=== PATIENT | female | born 1990 | race Caucasian/White ===

== ENCOUNTER 2024-07-18 18:56 | Emergency (ER) | payer OTHER, SELFPAY ==
[2024-07-18 19:02] VITALS: BP 113/58; PULSE 98; RESP 20; TEMP 37.2; O2SAT 100
--- NOTE | 2024-07-18 19:16 | ED.URI ---
HPI - URI/Sore Throat General Chief Complaint: Upper Respiratory Infection Stated Complaint: Throat/aches/chills/congestion Time Seen by Provider: 07/18/24 19:10 Source: patient, RN notes reviewed and old records reviewed Mode of arrival: ambulatory Limitations: no limitations History of Present Illness HPI Narrative: 33 year old female who presents to [facility] care with complaints of cough, sore throat, congestion with fevers running around 100F for the past 3 days with some post nasal drainage.. Patient reports that she has been taking Sudafed, DayQuil, NyQuil, and Ibuprofen for her symptoms.Patient reports that her throat is painful to swallow, denies any headaches or body aches. 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 MD elicited complaint: cough and sore throat Onset (ago): day(s) (3) Consistency: progressively worsening Pain scale (0-10): 6 Able to tolerate fluids by mouth: Yes Exacerbating factors: swallowing Treatments prior to arrival: ibuprofen and other (Sudafed, DayQuil and NyQuil) Related Data Home Medications Medication Instructions Recorded Confirmed levothyroxine 100 mcg tablet 100 mcg PO DAILY 07/18/24 07/18/24 (Synthroid) Allergies Allergy/AdvReac Type Severity Reaction Status Date / Time No Known Allergies Allergy Verified 07/18/24 19:13 Review of Systems Review of Systems: CONSTITUTIONAL: Reports malaise, chills, sweats, or fever. EYES: Denies visual changes, redness, or discharge. ENT: Reports rhinorrhea, congestion, sinus pain, no otalgia and positive for sore throat. CARDIOVASCULAR: Denies chest pain, palpitations, or edema. RESPIRATORY: Reports cough.? Denies dyspnea. GASTROINTESTINAL: Denies abdominal pain, nausea, vomiting, diarrhea SKIN: Denies rash or itching. MUSCULOSKELETAL: Denies myalgia. NEUROLOGIC: Denies headache. All systems reviewed & are unremarkable except as noted in HPI and below PMFSH Past Medical History Medical History (Updated 07/19/24 @ 22:33 by Tatyana Patterson NP) Hypothyroidism Social History Social History (Updated 07/19/24 @ 22:28 by Tatyana Patterson NP) Smoking status: Never smoker Alcohol intake: current Alcohol use details: social Substance use type: does not use Living arrangements: with family Gender identity (if verbalized by the patient): Female Comments At time of signature, agree with nursing past medical, surgical, social and family history. There is no relevant family history pertinent to the presenting complaint Exam Narrative: GENERAL: Well-appearing, well-nourished, and in no acute distress. HEAD: Normocephalic EYES: PERRLA, conjunctivae clear ENT: Nares clear, turbinates edematous and erythematous, clear discharge. Mucous membranes moist. TM pearly garcia with dull light reflex bilaterally; no tragal tenderness. Oropharynx erythematous without lesions. Tonsils red not enlarged and without exudate, no drooling, no hoarseness, no trismus, uvula midline.post nasal drainage noted NECK: Supple. No lymphadenopathy CHEST: Clear to auscultation, breath sounds equal. No wheezing, rhonchi, rales, or stridor. No respiratory distress, speaks in full sentences. cough noted SAO2 100% on room air HEART: Regular rate and rhythm. No murmur heard. SKIN: Warm, dry, no rash. NEURO: Alert and oriented x3. PSYCH: Normal mood and affect Course Course Emergency Course: Patient is aware of diagnosis, understands and agrees to treatment plan.? Anticipatory guidance given.? Patient agrees to follow-up as directed and is aware of reasons to seek care at the emergency department. Portions of this record may have been created with voice recognition software Level of Care: Express Care Visit Vital Signs Vital signs: Vital Signs Temperature 37.2 C 07/18/24 19:02 Pulse Rate 98 07/18/24 19:02 Respiratory Rate 20 07/18/24 19:02 Blood Pressure 113/58
[2024-07-18 19:22] LABS: EDSTREPNEGPOS1 Negative (Negative)
== END 2024-07-18 19:35 | disposition home or self-care (01) ==
PROVIDERS: Emergency Provider Registered Nurse; PCP Family Medicine
DX: R05.1 Acute cough (principal); J02.9 Acute pharyngitis, unspecified; E03.9 Hypothyroidism, unspecified
CPT/HCPCS: 87081; 87880; 99203; G0463

== ENCOUNTER 2024-10-02 13:46 | Emergency (ER) | payer OTHER, SELFPAY ==
[2024-10-02 14:15] VITALS: BP 122/50; PULSE 71; RESP 20; TEMP 37.1; O2SAT 98
--- NOTE | 2024-10-02 14:39 | ED_ITS ---
HPI - URI/Sore Throat General Chief Complaint: Upper Respiratory Infection Stated Complaint: cough, breathing prob History of Present Illness HPI Narrative: patient is a 33-year-old female, presents to [facility] with 8 day history of URI symptoms, starting with nasal congestion and sore throat a symptom onset, now since resolved, she has a productive cough over the past 3 days has felt feverish. She denies known sick contacts her COVID-19 exposures. She is taking jyxj-xhc-oruxhnp medications and also using an inhaler which was initially providing her relief but is no longer working well. She denies associated chest pain, she has no orthopnea, calf pain or swelling. She denies any additional associated symptoms or modifying factors. She is not . Related Data Home Medications ?Medication ?Instructions ?Recorded ?Confirmed ?Last Taken ?Type levothyroxine 100 mcg tablet 100 mcg PO DAILY 07/18/24 07/18/24 Unknown History (Synthroid) Allergies Allergy/AdvReac Type Severity Reaction Status Date / Time No Known Allergies Allergy Verified 07/18/24 19:13 Review of Systems Constitutional: Comments: Refer HPI ENT: Comments: refer to HPI Respiratory: Comments: [facility] Past Medical History Medical History (Updated 10/02/24 @ 14:43 by NAVDEEP Betancourt) Hypothyroidism Social History Social History (Updated 07/19/24 @ 22:28 by Tatyana Patterson NP) Smoking status: Never smoker Alcohol intake: current Alcohol use details: social Substance use type: does not use Living arrangements: with family Gender identity (if verbalized by the patient): Female Exam Const: General: healthy appearing and no acute distress Nutritional Appearance: well nourished Orientation/consciousness: patient oriented x3 Limitations: no limitations HENMT: Head: normal to inspection Ears: external ears normal and TM abnormal ( serous effusion bilaterally) Face/Nose/Sinus: Normal external nose present Face and sinus: normal facial exam Mouth: Yes Normal oral and palatal mucosa present Teeth and gingiva: dentition normal Throat: posterior oropharynx normal and uvula midline Eyes: Conjunctivae: conjunctivae normal Pupils: Equal, round and reactive pupils present EOM: EOMs intact bilaterally Neck: Neck: normal visual inspection, no lymphadenopathy and no meningeal signs Chest: Chest palpation & inspection: normal inspection of the chest Resp: Effort & Inspection: normal respiratory effort Auscultation: diminished lung sounds bilateral in the lower lung morrow Other: forced expiratory wheezing is noted during cough while auscultating Cardio: Rate: regular rate Rhythm: regular rhythm Back/Spine/Pelvis: Back: no CVA tenderness Skin: General skin exam: normal color Rashes: no rashes Wounds: no wounds Neuro: General: patient oriented x3, moves all extremities, no meningeal signs, no focal motor deficits and CN's II-XI intact bilaterally Cranial nerves: Yes Nystagmus not present Speech: normal speech Gait exam (Neuro): Normal gait present Extrem: General: normal to inspection and no clubbing, cyanosis or edema Course Course Emergency Course: plan to treat empirically for lower lung infection she has a days post symptom onset and not as a productive cough with subjective fever. Patient is advised a plan to defer imaging per CDC recommendations as her oxygen saturation is normal. Patient will complete oral steroids and Zithromax, follow up with her PCP in 3 days if symptoms not improving. She has albuterol at home for use Level of Care: [facility] Care Visit ([id number]) Vital Signs Vital signs: Vital Signs Temperature 37.1 C 10/02/24 14:15 Pulse Rate 71 10/02/24 14:15 Respiratory Rate 20 10/02/24 14:15 Blood Pressure 122/50 L 10/02/24 14:15 Pulse Oximetry 98 10/02/24 14:15 Oxygen Delivery Room Air 10/02/24 14:15 Temperature 37.1 C 10/02/24 14:15 Pulse Rate 71 10/02/24 14:15 Respiratory Rate 20 10/02/24 14:15 Blood Pressure 122/50 L 10/02/24 14:15 Pulse Oximetry 98 10/02/24 14:15 Oxygen Delivery Room Air 10/02/24 14:15 MDM - URI/Sore Throat MDM Narrative Medical decision making narrative: prednisone and Zithromax Differential Diagnosis Differential diagnosis: Likely upper respiratory infection, otitis media, sinusitis, viral infection, bronchitis and other ( pneumonia) Discharge Plan Discharge Clinical Impression: Bronchitis Patient Disposition: Home, Self-Care Condition: Stable Instructions: Antibiotic Form, Community Acquired Pneumonia (ED) Patient Language: Venezuelan Prescriptions: New azithromycin [Zithromax] 500 mg tablet 500 mg PO DAILY 7 Days Qty: 7 0RF prednisone 20 mg tablet 40 mg PO DAILY 5 Days Qty: 10 0RF No Action levothyroxine [Synthroid] 100 mcg tablet 100 mcg PO DAILY amoxicillin 875 mg tablet 875 mg PO Q12H Qty: 20 0RF prednisone 20 mg tablet 20 mg PO BID Qty: 10 0RF Follow-up/Referrals: Xi,Roosevelt Ortiz MD [Primary Care Provider] - Time of Disposition: 14:44
--- OUTSIDE RECORDS SUMMARY | 2024-10-09 16:33 | XMS_ITS | Encounter Summary ---
Author Organization [facility] Care Team Providers Care Eyelet Operator Name Role Phone Roosevelt Layne MD Primary Care Provider [phone] Encounter Details Date Type Department Care Team (Latest Contact Info) Description 07/22/2024 Travel Social History Tobacco Use Types Packs/Day Years Used Date Smoking Tobacco: Never Smokeless Tobacco: Never Alcohol Use Standard Drinks/Week Comments No 0 (1 standard drink = 0.6 oz pur e alcohol) PHQ-2 Answer Date Recorded Total Score - Questions 1-9 0 01/05 Sexually Active Control Partners Comments Never Comments No Sex and Gender Information Value Date Recorded Sex Assigned at Not on file Legal Sex Female 11:43 PM CDT Gender Identity Not on file Sexual Orientation Not on file documented as of this encounter Plan of Treatment Upcoming Encounters Date Type Department Care Team (Late st Contact Info) Description 10/31/2024 4:00 PM HOT PACKER Office Visit [facility] - Family Medicine [facility] [address] [place] [id number] Pelon Tanner APRN, [employer] ARTILL[employer] CANNONEER [address] [address] documented as of this encounter Visit Diagnoses Not on filedocumented in this encounter Additional Health Concerns Assessment Noted Time PHQ-9 Depression Total Score: 0 02/02/20 20 11:19 AM CDT documented as of this encounter Care Teams Eyelet Operator Relationship Specialty Start Date End Date Roosevelt Layne MD [address] [address] PCP - General Family Medicine 09/03/15 documented as of this encounter
--- OUTSIDE RECORDS SUMMARY | 2024-10-09 16:33 | XMS_ITS | Encounter Summary ---
Author Organization [facility] Health Address [address] [place] [address] Care Team Providers Care Flower Grower Name Role Phone Roosevelt Layne MD Primary Care Provider Reason for Visit * Reason Comments Refill Request Encounter Details Date Type Department Care Team (Late st Contact Info) Description 03/26/2020 Refill [facility] Endocrinology, Diabetes and Metabolism [address] [place], [place] [id number] Shayne Hua MD [address] [place] [address] Refill Request Social History Tobacco Use Types Packs/Day Years Used Date Smoking Tobacco: Never Smokeless Tobacco: Never Alcohol Use Standard Drinks/Week Comments Not Currently 0 (1 standard drink = 0.6 oz pur e alcohol) Sex and Gender Information Value Date Recorded Sex Assigned at Not on file Gender Identity Not on file Sexual Orientation Not on file documented as of this encounter Miscellaneous Notes * Telephone Encounter - Dionna Saucedo RN - 03/26/2020 1:28 PM CDT Refill Request Marci Cote MATEUSZ: 10/28/19 NOV scheduled: 04/27/20 LRF: 03/22/19 Qty Disp: 30 # of refills: 11 Allergies: Allergies Allergen Reactions ??? Keflex [Cephalexin] Other GI upset GI upset ??? Sumatriptan Other Numbness on the left side. Numbness on the left side. Numbness on the left side. Numbness on the left side. Pended Medication Order: Requested Prescriptions Pending Prescriptions Disp Refills ??? EUTHYROX 100 MCG tablet [Pharmacy Med Name: Euthyrox 100 MCG Oral Tablet] 90 tablet 3 Sig: Take 1 tablet by mouth once daily documented in this encounter Plan of Treatment Not on file documented as of this encounter Visit Diagnoses Not on filedocumented in this encounter Care Teams Flower Grower Relationship Specialty Start Date End Date Roosevelt Layne MD PCP - General Family Medicine 08/17/17 documented as of this encounter
--- OUTSIDE RECORDS SUMMARY | 2024-10-09 16:33 | XMS_ITS | Encounter Summary ---
Author Organization [facility] Address [address] [place] [address] Phone Care Team Providers Care Fruit Worker Name Role Phone Roosevelt Layne MD Primary Care Provider [phone] Encounter Details Date Type Department Care Team (Late st Contact Info) Description 03/14/2024 Telephone [facility] - Family Medicine [facility] [address] [place] [address] Roosevelt Layne MD [address] [address] Social History Tobacco Use Types Packs/Day Years [...] encounter Miscellaneous Notes * Telephone Encounter - Kate Arrieta MA - 03/15/2024 8:51 AM CDT Lm for Marci to contact the office. * Telephone Encounter - Roosevelt Layne MD - 03/14/2024 3:49 PM CDT Schedule her for follow-up visit with me in 3-4 months. Thanks! documented in this encounter Plan of Treatment Upcoming Encounters Date Type Department Care Team (Late st Contact Info) Description 10/31/2024 4:00 PM OUTPATIENT ADMITTING CLERK Office Visit [facility] - Family Medicine [facility] [address] [place] [address] Pelon Tanner APRN, KILN FEEDER [address] [address] documented as of this encounter Visit Diagnoses Not on filedocumented in this encounter Additional Health Concerns Assessment Noted Time PHQ-9 Depression Total Score: 0 02/02/20 20 11:19 AM CDT documented as of this encounter Care Teams Fruit Worker Relationship Specialty Start Date End Date Roosevelt Layne MD [address] [address] PCP - General Family Medicine 09/03/15 documented as of this encounter
--- OUTSIDE RECORDS SUMMARY | 2024-10-09 16:33 | XMS_ITS | Encounter Summary ---
Author Organization [facility] Address [address] [place] [address] Care Team Providers Care Stencil Inspector Name Role Phone Roosevelt Layne MD Primary Care Provider [phone] Reason for Visit * Reason Comments Thyroid Problem Encounter Details Date Type Department Care Team (Late st Contact Info) Description 10/28/2019 1:40 PM RANGE EXAMINER Office Visit [facility] Endocrinology, Diabetes and Metabolism [address] [place], [place] [id number] Shayne Hua MD [address] [place] [address] Hypothyroidism, unspecified type (Primary Dx) Social History Tobacco Use Types Packs/Day Years Used Date Smoking Tobacco: Never Smokeless Tobacco: Never Alcohol Use Standard Drinks/Week Comments Not Currently 0 (1 standard drink = 0.6 oz pur e alcohol) Sex and Gender Information Value Date Recorded Sex Assigned at Not on file Gender Identity Not on file Sexual Orientation Not on file documented as of this encounter Last Filed Vital Signs Vital Sign Reading Time Taken Comments Blood Pressure 116/66 10/28/2019 1:35 PM RANGE EXAMINER Pulse 97 10/28/2019 1:35 PM RANGE EXAMINER Temperature 36.7 ??C (98.1 ??F) 10/28/2019 1 :35 PM RANGE EXAMINER Respiratory Rate 18 10/28/2019 1:35 PM RANGE EXAMINER Oxygen Saturation 97% 10/28/2019 1:3 5 PM RANGE EXAMINER on room air Inhaled Oxygen Concentration - - Weight 96.8 kg (213 lb 6.4 oz) 10/28/19 20 1:35 PM RANGE EXAMINER Height - - Body Mass Index 33.93 11/23/2018 1:43 PM RANGE EXAMINER documented in this encounter Progress Notes * Shayne Hua MD - 10/28/2019 2:03 PM CST Subjective: Claribel Cote is a 29 y.o. female who presents for f/u of hypothroidism. Diagnosed in 2007 because of fatigue and increased sleep. Levothyroxine was increased to 100 mcg daily in March 2019 because TSH was 4. Asymptomatic at this time. Feels well Has difficulty losing weight. Saw manager helpdesk in 11/2018. H/o Migraines. They have not bothered her much. In the past, her headaches worsened after thyroid dose change. Usually gets migraines around menses. Migraines have bothered her all her life, including childhood. She has seen neurology and was on preventive medications in past. H/o keloids. Better with intralesional steroids Past Medical History: Diagnosis Date ??? Hypothyroidism Past Surgical History: Procedure Laterality Date ??? Section Family History Problem Relation Name Age of Onset ??? Cancer - Breast Mother Current Outpatient Medications Medication Sig Dispense Refill ??? wltx-bmhl-gzfrqohlnj-codeine (FIORICET WITH CODEINE) [id number] MG capsule Take 1 capsule by mouth every 4 hours as needed ??? levothyroxine (SYNTHROID) 100 MCG tablet Take 1 tablet by mouth once daily 30 tablet 11 No current facility-administered medications for this visit. Allergies Allergen Reactions ??? Keflex [Cephalexin] Other GI upset GI upset ??? Sumatriptan Other Numbness on the left side. Numbness on the left side. Numbness on the left side. Numbness on the left side. Social History Socioeconomic History ??? Marital status: Single Spouse name: Not on file ??? Number of children: Not on file ??? Years of education: Not on file ??? Highest education level: Not on file Occupational History ??? Not on file Social Needs ??? Financial resource strain: Not on file ??? Food insecurity: Worry: Not on file Inability: Not on file ??? Transportation needs: Medical: Not on file Non-medical: Not on file Tobacco Use ??? Smoking status: Never Smoker ??? Smokeless tobacco: Never Used Substance and Sexual Activity ??? Alcohol use: Not Currently ??? Drug use: Never ??? Sexual activity: Not on file Lifestyle ??? Physical activity: Days per week: Not on file Minutes per session: Not on file ??? Stress: Not on file Relationships ??? Social connections: Talks on phone: Not on file Gets together: Not on file Attends gnosticism service: Not on file Active member of club or organization: Not on file Attends meetings of clubs or organizations: Not on file Relationship status: Not on file ??? Intimate partner violence: Fear of current or ex partner: Not on file Emotionally abused: Not on file Physically abused: Not on file Forced sexual activity: Not on file Other Topics Concern ??? Not on file Social History Narrative ??? Not on file Review of Systems No palpitations Objective: BP 116/66 (BP SITE: RIGHT ARM, BP POSITION: SITTING, BP CUFF SIZE: 11) Pulse 97 Temp 98.1 ??F (36.7??C) (Oral) Resp 18 Wt 213 lb 6.4 oz (96.8 kg) SpO2 97% BMI 33.93 kg/m2 General: alert, cooperative, no distress Lung: clear to auscultation bilaterally Heart: regular rate and rhythm, S1, S2 normal, no murmur, click, rub or gallop Extremities: No tremors Skin: keloids Lab Review Results for CLARIBEL COTE ( ) as of 10/28/2019 13:58 Ref. Range 09/10/2018 14:11 03/18/2019 14:54 TSH Latest Units: mIU/L 2.070 4.08 T4 Free Latest Ref Range: 0.8 - 1.8 ng/dL 1.21 1.2 Assessment: Hypothyroidism. controlled Plan: Continue levothyroxine 100 mcg daily. Recheck TFTs now. RTC 7 mths with TFTs E EXAMINER documented in this encounter Plan of Treatment Scheduled Orders Name Type Priority Associated Diagnoses Orde r Schedule TSH+FREE T4 PANEL Lab Routine Hypothyroidism, unspecified type Expected: 04/27/2020, Expires: 11/28/2020 documented as of this encounter Procedures Procedure Name Priority Date/Time Associated Diagnosis Comments TSH+FREE T4 PANEL Routine 10/28/2019 2:2 1 PM RANGE EXAMINER Hypothyroidism, unspecified type documented in this encounter Results * TSH+FREE T4 PANEL (10/28/2019 2:21 PM RANGE EXAMINER) TSH 1.23 mIU/L [facility] Comment: ?Reference Range ?> or = 20 Years ??0.40-4.50 ? Ranges ?First trimester ?0.26-2.66 ?Second trimester ?? 0.55-2.73 ?Third trimester ?0.43-2.91 T4 Free 1.5 0.8 - 1.8 ng/dL [facility] Comment: Test Performed at: [facility] [address] ??[id number] MIKAYLA VILLA DO,MPH Blood BLOOD SPECIMEN / Unknown 10/28/2019 2:21 PM RANGE EXAMINER 10/28/2019 2:21 PM RANGE EXAMINER Shayne Hua MD LAB - CHEMISTRY [address] [facility] [id number] [place] [address] documented in this encounter Visit Diagnoses Diagnosis Hypothyroidism, unspecified type- Primary documented in this encounter Care Teams Stencil Inspector Relationship Specialty Start Date End Date Roosevelt Layne MD PCP - General Family Medicine 08/17/17 documented as of this encounter
--- OUTSIDE RECORDS SUMMARY | 2024-10-09 16:33 | XMS_ITS | Encounter Summary ---
Author Organization [facility] Address [address] [place] [address] Care Team Providers Care Farmworkers Name Role Phone Roosevelt Layne MD Primary Care Provider [phone] Reason for Visit * Reason Comments Congestion Encounter Details Date Type Department Care Team (Late st Contact Info) Description 08/07/2018 4:00 PM CDT Office Visit [facility] [address] [address] Provider, Maynor Isaac Pike Upper respiratory tract infection, unspecified type (Primary Dx) Social History Tobacco Use Types Packs/Day Years Used Date Smoking Tobacco: Never Smokeless Tobacco: Never Sex and Gender Information Value Date Recorded Sex Assigned at Not on file Gender Identity Not on file Sexual Orientation Not on file documented as of this encounter Last Filed Vital Signs Vital Sign Reading Time Taken Comments Blood Pressure 110/62 08/07/2018 3:53 PM CDT Pulse 87 08/07/2018 3:53 PM CDT Temperature 36.9 ??C (98.5 ??F) 08/07/2018 3:53 PM CD T Respiratory Rate 20 08/07/2018 3:53 PM CDT Oxygen Saturation 98% 08/07/2018 3:53 PM CDT Inhaled Oxygen Concentration - - Weight 90.7 kg (200 lb) 08/07/2018 3:53 PM CDT Height 175.3 cm (5' 9 ) 08/07/2018 3:53 PM CDT Body Mass Index 29.53 08/07/2018 3:53 PM CDT documented in this encounter Patient Instructions * Patient Instructions* Hannah Sosa APRN-TANK BOTTOM ASSEMBLER - 08/07/2018 4:21 PM CDT Images from the original note were not included. Upper Respiratory Infection HEAD PUMPER: An upper respiratory infection is also called a common cold. It can affect your nose, throat, ears,and sinuses. Common signs and symptoms include the following: Cold symptoms are usually worst for the first 3 to5 days. You may have any of the following: ?? Runny or stuffy nose ?? Sneezing and coughing ?? Sore throat or hoarseness ?? Red, watery, and sore eyes ?? Fatigue ?? Chills and fever ?? Headache, body aches, or sore muscles Seek care immediately if: ?? You have chest pain or trouble breathing. Contact your healthcare provider if: ?? You have a fever over 102??F (39??C). ?? Your sore throat gets worse or you see white or yellow spots in your throat. ?? Your symptoms get worse after 3 to 5 days or your cold is not better in 14 days. ?? You have a rash anywhere on your skin. ?? You have large, tender lumps in your neck. ?? You have thick, green or yellow drainage from your nose. ?? You cough up thick yellow, green, or bloody mucus. ?? You have vomiting for more than 24 hours and cannot keep fluids down. ?? You have a bad earache. ?? You have questions or concerns about your condition or care. Treatment for a cold: There is no cure for the common cold. Colds are caused by viruses and do not get better with antibiotics. Most people get better in 7 to 14 days. You may continue to cough for 2to 3 weeks. The following may help decrease your symptoms: ?? Decongestants help reduce nasal congestion and help you breathe more easily. If you take decongestant pills, they may make you feel restless or not able to sleep. Do not use decongestant sprays for more than a few days. ?? Cough suppressants help reduce coughing. Ask your healthcare provider which type of cough medicine is best for you. ?? NSAIDs , such as ibuprofen, help decrease swelling, pain, and fever. NSAIDs can cause stomach bleeding or kidney problems in certain people. If you take blood thinner medicine, always ask your healthcare provider if NSAIDs are safe for you. Always read the medicine label and follow directions. ?? Acetaminophen decreases pain and fever. It is available without a doctor's order. Ask how much to take and how often to take it. Follow directions. Read the labels of all other medicines you are using to see if they also contain acetaminophen, or ask your doctor or pharmacist. Acetaminophen can cause liver damage if not taken correctly. Do not use more than 4 grams (4,000 milligrams) total of acetaminophen in one day. Manage your cold: ?? Rest as much as possible. Slowly start to do more each day. ?? Drink more liquids as directed. Liquids will help thin and loosen mucus so you can cough it up. Liquids will also help prevent dehydration. Liquids that help prevent dehydration include water, fruit juice, and broth. Do not drink liquids that contain caffeine. Caffeine can increase your risk fordehydration. Ask your healthcare provider how much liquid to drink each day. ?? Soothe a sore throat. Gargle with warm salt water. This helps your sore throat feel better. Makesalt water by dissolving ?? teaspoon salt in 1 cup warm water. You may also suck on hard candy or throat lozenges. You may use a sore throat spray. ?? Use a humidifier or vaporizer. Use a cool mist humidifier or a vaporizer to increase air moisture in your home. This may make it easier for you to breathe and help decrease your cough. ?? Use saline nasal drops as directed. These help relieve congestion. ?? Apply petroleum-based jelly around the outside of your nostrils. This can decrease irritation from blowing your nose. ?? Do not smoke. Nicotine and other chemicals in cigarettes and cigars can make your symptoms worse. They can also cause infections such as bronchitis or pneumonia. Ask your healthcare provider for information if you currently smoke and need help to quit. E-cigarettes or smokeless tobacco still contain nicotine. Talk to your healthcare provider before you use these products. Prevent spreading your cold to others: ?? Try to stay away from other people during the first 2 to 3 days of your cold when it is more easily spread. ?? Do not share food or drinks. ?? Do not share hand towels with household members. ?? Wash your hands often, especially after you blow your nose. Turn away from other people and cover your mouth and nose with a tissue when you sneeze or cough. Follow up with your healthcare provider as directed: Write down your questions so you remember to ask them during your visits. ?? Copyright [employer] 2018 Information is for End User's use only and may not be sold, redistributed or otherwise used for commercial purposes. All illustrations and images included in CareNotes?? are the copyrighted property of [employer] or [employer] The above information is an physician's aide only. It is not intended as medical advice for individual conditions or treatments. Talk to your doctor, nurse or pharmacist before following any medical regimen to see if it is safe and effective for you. documented in this encounter Progress Notes * Hannah Sosa APRN-CNP - 08/07/2018 4:16 PM CDT Subjective: Claribel Cote is a 27 y.o. female who presents for evaluation: Chief Complaint Patient presents with ??? Congestion Primary Care Physician is Roosevelt Layne MD. Symptoms include Sore throat, post nasal drainage, off and on hoarseness, cough, painful to swallow, dry and itchy throat. 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 No recent travel. Onset of symptoms was 5 days ago, gradually worsening since that time. No fever, body aches, chills, or ear pain. She is drinking moderate amounts of fluids. Evaluation to date: none. Treatment to date: zyrtec Allergies Allergen Reactions ??? Keflex [Cephalexin] GI upset Outpatient Prescriptions Marked as Taking for the 08/07/18 encounter (Office Visit) with Provider, Maynor Bynumwood Medication Sig ??? benzonatate (TESSALON) 200 MG capsule Take 1 capsule by mouth 3 times daily as needed for Cough ??? levothyroxine (SYNTHROID) 50 MCG tablet Take 75 mcg by mouth daily before breakfast Past Medical History: Diagnosis Date ??? Hypothyroidism Social History Social History ??? Marital status: Single Spouse name: N/A ??? Number of children: N/A ??? Years of education: N/A Occupational History ??? Not on file. Social History Main Topics ??? Smoking status: Never Smoker ??? Smokeless tobacco: Never Used ??? Alcohol use Not on file ??? Drug use: Not on file ??? Sexual activity: Not on file Other Topics Concern ??? Not on file Social History Narrative Medications reviewed. Review of Systems Pertinent items are noted in HPI Constitutional: Negative Eyes: Negative Ears, nose, mouth, and throat: Positive for sore throat, voice hoarseness, post nasal drainage, dryand scratchy throat Respiratory: Positive for acute cough Cardiovascular: Negative Gastrointestinal: Negative Hematologic/lymphatic: Negative Musculoskeletal:Negative Neurological: Negative Objective: BP 110/62 (BP SITE: LEFT ARM, BP POSITION: SITTING, BP CUFF SIZE: 11) Pulse 87 Temp 98.5 ??F (36.9 ??C) (Oral) Resp 20 Ht 1.753 m (5' 9 ) Wt 90.7 kg (200 lb) SpO2 98% BMI 29.53 kg/m2 Skin: Physical Exam Exam General appearance: alert, cooperative, no distress, oriented to person, place, and time, wellappearing Head: normocephalic, without trauma Eyes: sclera and conjunctiva clear, EOMI and PERRLA, lids normal Ears: canals clear, tympanic membranes normal, hearing intact to voice Nose: nares open; no septal deviation is noted, nasal mucosa not inflamed, no maxillary, frontal orethmoid tenderness Throat: no mucous membrane abnormalities, lips, mucosa, and tongue normal; teeth and gums normal Neck: range of motion is intact, Nodes: no cervical adenopathy, non tender Lungs: breath sounds normal and symmetric; no rales or wheezes Heart: regular rhythm, normal S1 and S2, without murmurs, gallops or rubs Neurologic: mental status normal; alert and oriented X 3 Assessment: . Encounter Diagnoses Name Primary? Upper respiratory tract infection, unspecified type Yes Plan: Discussed dx and tx of URIs Discussed the importance of avoiding unnecessary abx therapy. Suggested symptomatic OTC remedies. RTC prn. Drink plenty of fluids and get plenty of rest You can take an over the counter decongestant and/or antihistamine daily (per package directions) such as Zyrtec-D You can take Tylenol or ibuprofen as needed for fever or pain (per package directions) If you begin to run a fever or if symptoms worsen, such as difficulty breathing or shortness of breath, seek medial attention as soon as possible. Honey can be used to help with cough. The honey (2.5 to 5 ml [0.5 to 1 teaspoon]) can be given straight or diluted in liquid (eg, tea, juice) Humidifier may be helpful especially at night If symptoms persist greater than 10 days or worsen at any time, follow up with a health care provider, clinic or emergency care Continue to follow up with Roosevelt Layne MD as directed. After Visit Summary reviewed with patient. The patient indicates understanding of these issues and agrees with the plan. Patient discharged to Home .CRAOL Reed 08/07/2018 4:25 PM Orders Placed This Encounter ??? INFLUENZA A+B - POINT OF CARE (AMB) ??? STREP A SCREEN - POINT OF CARE (AMB) STL ??? benzonatate (TESSALON) 200 MG capsule Sig: Take 1 capsule by mouth 3 times daily as needed for Cough Dispense: 30 capsule Refill: 0 Recent Results (from the past 24 hour(s)) INFLUENZA A+B - POINT OF CARE (AMB) Collection Time: 08/07/18 4:13 PM Result Value Ref Range Influenza A Antigen Rapid Negative Negative Influenza B Antigen Rapid Negative Negative Influenza Internal Control present NEGATIVE - POSITIVE Influenza Lot Number [id number] Influenza Expiration Date 11 13 2019 STREP A SCREEN - POINT OF CARE (AMB) STL Collection Time: 08/07/18 4:13 PM Result Value Ref Range Strep A Rapid POCT Negative Negative Strep A Internal Control Present Lot # [id number] Expiration Date 12 04 2019 documented in this encounter Plan of Treatment Not on file documented as of this encounter Procedures Procedure Name Priority Date/Time Associated Diagnosis Comments STREP A SCREEN - POINT OF CARE (AMB) STL Routine 08/07/2018 4:13 PM CDT Upper respiratory tract infection, unspecified type INFLUENZA A+B - POINT OF CARE (AMB) Routine 08/07/2018 4:13 PM CDT Upper respiratory tract infection, unspecified type documented in this encounter Results * STREP A SCREEN - POINT OF CARE (AMB) STL (08/07/2018 4:13 PM CDT) Strep A Rapid POCT Negative Negative Strep A Internal Control Present Lot # [id number] Expiration Date 12 04 2019 Throat ENTIRE THROAT (SURFACE REGION OF NECK) / Unknown 08/07/2018 4:13 PM CDT Hannah Sosa APRN-[facility] - POINT OF CA RE ORDERABLES * INFLUENZA A+B - POINT OF CARE (AMB) (08/07/2018 4:13 PM CDT) Influenza A Antigen Rapid Negative Negative Influenza B Antigen Rapid Negative Negative Influenza Internal Control present NEGATIVE - POSITIVE Influenza Lot Number [id number] Influenza Expiration Date 11 13 2019 Other NASOPHARYNGEAL SWAB / Unknown 08/07/2018 4:13 PM CDT Hannah Sosa APRN-[facility] - POINT OF CA RE ORDERABLES documented in this encounter Visit Diagnoses Diagnosis Upper respiratory tract infection, unspecified type- Primary documented in this encounter Care Teams Farmworkers Relationship Specialty Start Date End Date Roosevelt Layne MD PCP - General Family Medicine 08/17/17 documented as of this encounter
--- OUTSIDE RECORDS SUMMARY | 2024-10-09 16:33 | XMS_ITS | Encounter Summary ---
Author Organization [facility] Address [address] [place] [address] Care Team Providers Care Internal Medicine Specialist Name Role Phone Roosevelt Layne MD Primary Care Provider Reason for Visit * Reason Onset Date Comments Follow-up 12/01/2017 Encounter Details Date Type Department Care Team (Late st Contact Info) Description 12/01/[address] [facility] AT [address] [address] [facility] Follow-up Social History Tobacco Use Types Packs/Day Years Used Date Smoking Tobacco: Never Smokeless Tobacco: Never Sex and Gender Information Value Date Recorded Sex Assigned at Not on file Gender Identity Not on file Sexual Orientation Not on file documented as of this encounter Plan of Treatment Not on file documented as of this encounter Visit Diagnoses Not on filedocumented in this encounter Care Teams Internal Medicine Specialist Relationship Specialty Start Date End Date Roosevelt Layne MD PCP - General Family Medicine 08/17/17 documented as of this encounter
--- OUTSIDE RECORDS SUMMARY | 2024-10-09 16:33 | XMS_ITS | Encounter Summary ---
Author Organization [facility] Address [address] [place] [address] Phone Care Team Providers Care Medical Photographer Name Role Phone Roosevelt Layne MD Primary Care Provider [phone] Encounter Details Date Type Department Care Team (Late st Contact Info) Description 07/26/2024 Telephone [facility] - Family Medicine [facility] [address] [place] [address] Roosevelt Layne MD [address] [address] Social History Tobacco Use Types Packs/Day Years [...] encounter Miscellaneous Notes * Telephone Encounter - Ambar Rutherford CMA - 07/26/2024 3:52 PM CDT Pt scheduled for 07/28/24. * Telephone Encounter - Roosevelt Layne MD - 07/26/2024 9:32 AM CDT Schedule her for telephone visit with me later this week for Urgent Care / ER follow-up. Thanks! documented in this encounter Plan of Treatment Upcoming Encounters Date Type Department Care Team (Late st Contact Info) Description 10/31/2024 4:00 PM TECHNICAL TESTING ENGINEER Office Visit [facility] - [facility] - [place] [address] [place] [address] Pelon Tanner APRN, [facility] [address] [address] documented as of this encounter Visit Diagnoses Not on filedocumented in this encounter Additional Health Concerns Assessment Noted Time PHQ-9 Depression Total Score: 0 02/02/20 20 11:19 AM CDT documented as of this encounter Care Teams Medical Photographer Relationship Specialty Start Date End Date Roosevelt Layne MD [address] [address] PCP - General Family Medicine 09/03/15 documented as of this encounter
--- OUTSIDE RECORDS SUMMARY | 2024-10-09 16:33 | XMS_ITS | Clinical Summary ---
Author Organization [facility] Address [address] [facility] [place] [address] Care Team Providers Care Channel Man Name Role Phone Roosevelt Layne MD Primary Care Provider [phone] Source Comments [facility],non-owned Affiliates and Associated Physician Practices is amultiple site organization consisting of ambulatory clinics and hospital sitesin [place], [place], [place] and [place]. This disclosure is being madepursuant to the Care Everywhere program and may not contain all information available regarding this patient. Last updated 18.[facility] Allergies Active Allergy Reactions Criticality Noted Date Comments Cephalexin Other 08/17/2017 GI upset GI upset Sumatriptan Other 01/07/2016 Numbness on the left side. Numbness on the left side. Numbness on the left side. Numbness on the left side. Medications * Be aware that medications may not be up to date on this document. Alwaysverify current medications with the patient. Medication Sig Dispensed Refills Start Date End Date Status lnjq-nvky-vwbnusjoqs- codeine (FIORICET WITH CODEINE) 50-374-45-30 MG capsule Take 1 capsule by mouth every 4 hours as needed 01/25/2018 Active levothyroxine (EUTHYROX) 100 MCG tablet Take 1 (one) tablet by mouth once daily 90 tablet 3 11/23/2020 Active Active Problems Problem Noted Date Diagnosed Date Hypothyroidism 09/10/2018 B12 deficiency 04/21/2017 Migraine without aura and wi th status migrainosus, not intractable 02/18/2017 Overweight (BMI 25.0-29.9) 02/18/2017 Vitamin D deficiency 11/07/2015 Chronic fatigue 11/02/2015 Migraine 09/03/2015 Immunizations Name Administration Dates Next Due INFLUENZA VACCINE, TRIV. (AF LURIA, FLUZONE TRIVALENT; 6MO+) (IIV3) 08/06/2019 INFLUENZA 07/22/2018 TDAP (7yrs+) 01/21/2008 Family History Medical History Relation Name Comments Cancer - Breast Mother Relation Name Status Comments Mother Social History Tobacco Use Types Packs/Day Years Used Date Smoking Tobacco: Never Smokeless Tobacco: Never Alcohol Use Standard Drinks/Week Comments Not Currently 0 (1 standard drink = 0.6 oz pur e alcohol) Sex and Gender Information Value Date Recorded Sex Assigned at Not on file Gender Identity Not on file Sexual Orientation Not on file Last Filed Vital Signs Vital Sign Reading Time Taken Comments Blood Pressure 116/66 10/28/2019 1:35 PM RECEPTION INTERVIEWER Pulse 97 10/28/2019 1:35 PM RECEPTION INTERVIEWER Temperature 36.7 ??C (98.1 ??F) 10/28/2019 1 :35 PM RECEPTION INTERVIEWER Respiratory Rate 18 10/28/2019 1:35 PM RECEPTION INTERVIEWER Oxygen Saturation 97% 10/28/2019 1:3 5 PM RECEPTION INTERVIEWER on room air Inhaled Oxygen Concentration - - Weight 96.8 kg (213 lb 6.4 oz) 10/28/19 20 1:35 PM RECEPTION INTERVIEWER Height 168.9 cm (5' 6.5 ) 11/23/2018 1: 43 PM RECEPTION INTERVIEWER Body Mass Index 33.93 11/23/2018 1:43 PM RECEPTION INTERVIEWER Plan of Treatment Health Maintenance Due Date Last Done Comments PAP SMEAR 1988 HIV SCREENING 2003 HEPATITIS C SCREENING 10/06/2006 HEPATITIS B VACCINE (1 of 3 - 19+ 3-dose series) 2007 DTAP/TDAP/TD VACCINES (2 - T d or Tdap) 01/20/2018 01/21/2008 DEPRESSION SCREENING 10/05/2023 COVID-19 VACCINE ( - 2023-2 5 season) 2024 INFLUENZA VACCINE (#1) 2024 9, 07/22/2018 ZOSTER VACCINE (1 of 2) 2038 HIB VACCINE Aged Out No longer eligi ble based on patient's age to complete this topic HPV VACCINE Aged Out No longer eligi ble based on patient's age to complete this topic MENINGOCOCCAL VACCINE Aged Out No savanah emily eligible based on patient's age to complete this topic PNEUMOCOCCAL VACCINE Aged Out No long er eligible based on patient's age to complete this topic Care Teams Channel Man Relationship Specialty Start Date End Date Roosevelt Layne MD PCP - General Family Medicine 08/17/17
--- OUTSIDE RECORDS SUMMARY | 2024-10-09 16:33 | XMS_ITS | Encounter Summary ---
Author Organization [facility] Address [address] [place] [address] Phone Care Team Providers Care Information Systems Security Analyst Name Role Phone Roosevelt Layne MD Primary Care Provider [phone] Reason for Visit * Reason Onset Date Comments Medication Refill 12/21/2023 Encounter Details Date Type Department Care Team (Late st Contact Info) Description 12/21/2023 Refill [facility] [address] [place] [address] Roosevelt Layne MD [address] [address] Medication Refill Social History Tobacco Use Types Packs/Day Years [...] encounter Miscellaneous Notes * Telephone Encounter - Mary Alvarado RN - 12/21/2023 12:29 PM CDT :Last ordered by this office 5 years ago. PRN medication requires review from provider Per nursing clinical judgement, provider to review and approve the medication(s) order(s) if appropriate. Requested Prescriptions Pending Prescriptions Disp Refills albuterol (ProAir HFA) 108 (90 Base) MCG/ACT Aerosol Solution 18 g 0 Sig: take 2 Puffs by inhalation every 4 hours as needed for Wheezing or Cough. Short Acting Inhaled Beta-Agonists Protocol Passed - 12/21/2023 9:04 AM Passed - Visit with relevant provider in past 12 months or upcoming 90 days Recent Visits Date Type Provider Dept 09/04/23 Office Visit Pelon Tanner APRN, [facility]ITRI[facility] Showing recent visits within past 365 days and meeting all other requirements Future Appointments No visits were found meeting these conditions. Showing future appointments within next 90 days and meeting all other requirements * Telephone Encounter - Myrna Meadows MA - 12/21/2023 9:02 AM CDT Message left on medication refill voice mail: Patient requesting a refill of Albuterol 108 (90 base) mcg/act aerosol solution documented in this encounter Plan of Treatment Upcoming Encounters Date Type Department Care Team (Late st Contact Info) Description 10/31/2024 4:00 PM KAIAWHINA Office Visit [facility] - Family [facility] [address] [place] [address] Pelon Tanner APRN, DMITRIY [address] [address] documented as of this encounter Visit Diagnoses Not on filedocumented in this encounter Additional Health Concerns Assessment Noted Time PHQ-9 Depression Total Score: 0 02/02/20 20 11:19 AM CDT documented as of this encounter Care Teams Information Systems Security Analyst Relationship Specialty Start Date End Date Roosevelt Layne MD [address] [address] PCP - General Family Medicine 09/03/15 documented as of this encounter
--- OUTSIDE RECORDS SUMMARY | 2024-10-09 16:33 | XMS_ITS | Encounter Summary ---
Author Organization [facility] Address [address] [place] [address] Care Team Providers Care Nutrition Program Instructor Name Role Phone Roosevelt Layne MD Primary Care Provider [phone] Encounter Details Date Type Department Care Team (Late st Contact Info) Description 11/11/2018 Orders Only [facility] [address] [place], [place] [id number] Shayne Hua MD [address] [address] Other specified hypothyroidism Social History Tobacco Use Types Packs/Day Years Used Date Smoking Tobacco: Never Smokeless Tobacco: Never Sex and Gender Information Value Date Recorded Sex Assigned at Not on file Gender Identity Not on file Sexual Orientation Not on file documented as of this encounter Plan of Treatment Not on file documented as of this encounter Visit Diagnoses Diagnosis Other specified hypothyroidism documented in this encounter Care Teams Nutrition Program Instructor Relationship Specialty Start Date End Date Roosevelt Layne MD PCP - General Family Medicine 08/17/17 documented as of this encounter
--- OUTSIDE RECORDS SUMMARY | 2024-10-09 16:33 | XMS_ITS | Referral Summary ---
Author Organization [facility] Address [address] [place] [address] Care Team Providers Care Personal Care Aide Name Role Phone Roosevelt Layne MD Primary Care Provider [phone] Source Comments [facility],non[facility] Affiliates and Associated Physician Practices is amultiple site organization consisting of ambulatory clinics and hospital sitesin [place], [place], [place] and [place]. This disclosure is being madepursuant to the Care Everywhere program and may not contain all information available regarding this patient. Last updated 18.[facility] Allergies Active Allergy Reactions Criticality Noted Date [...] Dispensed Refills Start Date End Date Status liko-qfet-cpwuqzpnyw- codeine (FIORICET WITH CODEINE) [id number] MG capsule Take 1 capsule by mouth [...] (IIV3) 08/06/2019 INFLUENZA 07/22/2018 TDAP (7yrs+) 01/21/2008 Social History Tobacco Use Types Packs/Day Years [...] Comments Blood Pressure 116/66 10/28/2019 1:35 PM MEDICAL OFFICE RECEPTIONIST Pulse 97 10/28/2019 1:35 PM MEDICAL OFFICE RECEPTIONIST Temperature 36.7 ??C (98.1 ??F) 10/28/2019 1 :35 PM MEDICAL OFFICE RECEPTIONIST Respiratory Rate 18 10/28/2019 1:35 PM MEDICAL OFFICE RECEPTIONIST Oxygen Saturation 97% 10/28/2019 1:3 5 PM MEDICAL OFFICE RECEPTIONIST on room air Inhaled Oxygen Concentration - - Weight 96.8 kg (213 lb 6.4 oz) 10/28/19 20 1:35 PM MEDICAL OFFICE RECEPTIONIST Height 168.9 cm (5' 6.5 ) 11/23/2018 1: 43 PM MEDICAL OFFICE RECEPTIONIST Body Mass Index 33.93 11/23/2018 1:43 PM MEDICAL OFFICE RECEPTIONIST Plan of Treatment Not on file Administered Medications Care Teams Personal Care Aide Relationship Specialty Start Date End Date Roosevelt Layne MD PCP - General Family Medicine 08/17/17
--- OUTSIDE RECORDS SUMMARY | 2024-10-09 16:33 | XMS_ITS | Encounter Summary ---
Author Organization [facility] Address [address] [address] Phone Care Team Providers Care Black Belt Name Role Phone Roosevelt Layne MD Primary Care Provider [phone] Reason for Visit * Reason Onset Date Comments Headache 11/24/2023 Encounter Details Date Type Department Care Team (Late st Contact Info) Description 11/24/2023 Nurse Triage [facility] [address] [place] [address] Roosevelt Layne MD [address] [address] Headache Social History Tobacco Use Types Packs/Day Years [...] encounter Miscellaneous Notes * Telephone Encounter - Marycarmen Pastrana RN - 11/24/2023 4:01 PM CST SITUATION: Patient returning call BACKGROUND: Below message from Dr Layne relayed to patient ASSESSMENT: Patient verbalizes understanding of recommendations and states she will go to the EMERGENCY DEPARTMENT to be seen RECOMMENDATION: Denies further needs at this time CARE TECHNICIAN * Telephone Encounter - Marci Vásquez RN - 11/24/2023 3:32 PM PET CARE TECHNICIAN LVM. Please give patient PCP's message when she calls. CARE TECHNICIAN * Telephone Encounter - Roosevelt Layne MD - 11/24/2023 3:23 PM PET CARE TECHNICIAN Tell her to go to the ER today for evaluation. She may need a CT head done. Thanks! CARE TECHNICIAN * Telephone Encounter - Chica Davies RN - 11/24/2023 2:57 PM PET CARE TECHNICIAN There is no recommendations from triage. Do you want patient to go to [facility], ED or telephone visit? CARE TECHNICIAN * Telephone Encounter - Nelly Nuñez RN - 11/24/2023 1:27 PM CST SITUATION (caller perception/concerns): headache BACKGROUND ASSESSMENT: Onset: 2 weeks Symptoms: patient states: has been having headaches for 2 weeks now, on left side behind left [employer]ec[employer] sometimes above eye but radiates to back of head too, bursts of pain , taking tylenol or motrin goes away but then comes back. Harder to sleep at times, if laying on that side it hurts more. H as had migraines , last week did have migraine but this doesn't feel like migraine. No vision changes, sometimes light sensitive , but not all the time. On occasion will feel some words getting jumbled or speech is off , this is not happening now , not dizzy now and speech is clear and no problemcurrently. No weakness or numbness. Pain: Now pain is in moderate , annoying, like being punched once in while in head. Temp (route, time): No fever Treatment with response: Last took yesterday OTC- motrin , none today RECOMMENDATION: Patient wanting appointment. Patient states she can make any appointment work to be seen. Triage information noted in chart. This RN unable to give recommendation /advisement due to Rn doesnt not have [place]. license , --Please call back via phone to patient with a appointment for office. See care advice and disposition for guideline. First positive answer recorded, all responses to prior questions were negative. If symptoms increase, change or if new symptoms develop, call your HCP or call back. Recommendation based on caller information and is not a diagnosis. Verified and reviewed all triage information with caller. Caller verbalized understanding of information given and denies further questions. Teach-back method utilized. Reason for Disposition ? ? Unexplained headache that is present > 24 hours Protocols used: [id number] CARE TECHNICIAN documented in this encounter Plan of Treatment Upcoming Encounters Date Type Department Care Team (Late st Contact Info) Description 10/31/2024 4:00 PM PET CARE TECHNICIAN Office Visit [facility] [address] [place] [address] Pelon Tanner APRN, TELEVISION TUBE INSPECTOR [address] [address] documented as of this encounter Visit Diagnoses Not on filedocumented in this encounter Additional Health Concerns Assessment Noted Time PHQ-9 Depression Total Score: 0 02/02/20 20 11:19 AM CDT documented as of this encounter Care Teams Black Belt Relationship Specialty Start Date End Date Roosevelt Layne MD [address] [address] PCP - General Family Medicine 09/03/15 documented as of this encounter
--- OUTSIDE RECORDS SUMMARY | 2024-10-09 16:33 | XMS_ITS | Encounter Summary ---
Author Organization [facility] Address [address] [place] [address] Phone Care Team Providers Care Shoe Shiner Name Role Phone Roosevelt Layne MD Primary Care Provider [phone] Reason for Visit * Reason Comments Medication Refill Encounter Details Date Type Department Care Team (Late st Contact Info) Description 09/10/2024 Refill [facility] [address] [place] [address] Pelon Tanner APRN, LABORER [employer] [address] [address] Medication Refill Social History Tobacco Use Types [...] Telephone Encounter - Mary Alvarado RN - 09/12/2024 9:01 AM CST Medication failed the protocol, provider to review and approve the medication order if appropriate. Requested Prescriptions Pending Prescriptions Disp Refills Synthroid 100 MCG Tablet [Pharmacy Med Name: Synthroid 100 MCG Oral Tablet] 90 Tablet 0 Sig: Take 1 tablet by mouth once daily Thyroid Hormones Protocol Failed - 09/12/2024 9:01 AM Failed - Normal TSH in past 12 months TSH Date Value Ref Range Status 09/04/2023 2.101 0.300 - 5.000 mIU/L Final Passed - No test in the past 12 months or most recent test was negative Passed - Visit with relevant provider in past 12 months or upcoming 90 days Recent Visits Date Type Provider Dept 07/28/24 Telemedicine Roosevelt Layne MD [facility] Showing recent visits within past 365 days and meeting all other requirements Future Appointments Date Type Provider Dept 10/31/24 Appointment Pelon Tanner APRN, CNP [facility] Showing future appointments within next 90 days and meeting all other requirements Passed - No active on record D CUTTER documented in this encounter Plan of Treatment Upcoming Encounters Date Type Department Care Team (Late st Contact Info) Description 10/31/2024 4:00 PM TREAD CUTTER Office Visit [facility] - Family [facility] [address] [place] [address] Pelon Tanner APRN, DMITRIY [address] [address] documented as of this encounter Visit Diagnoses Diagnosis Hypothyroidism, unspecified type documented in this encounter Additional Health Concerns Assessment Noted Time PHQ-9 Depression Total Score: 0 02/02/20 20 11:19 AM CDT documented as of this encounter Care Teams Shoe Shiner Relationship Specialty Start Date End Date Roosevelt Layne MD #[address] [address] PCP - General Family Medicine 09/03/15 documented as of this encounter
--- OUTSIDE RECORDS SUMMARY | 2024-10-09 16:33 | XMS_ITS | Encounter Summary ---
Author Organization [facility] Address [address] [place] [address] Care Team Providers Care Cut Out And Marking Machine Operator Name Role Phone Roosevelt Layne MD Primary Care Provider Reason for Visit * Reason Comments Cough Wheezing Encounter Details Date Type Department Care Team (Late st Contact Info) Description 11/17/2017 5:20 PM DRILL OPERATOR PNEUMATIC Office Visit [facility] [address] [address] Provider, Maynor Isaac [facility] Acute URI (Primary Dx); Strain of muscle, fascia and tendon of lower back, initial encounter Social History Tobacco Use Types Packs/Day Years Used Date Smoking Tobacco: Never Smokeless Tobacco: Never Sex and Gender Information Value Date Recorded Sex Assigned at Not on file Gender Identity Not on file Sexual Orientation Not on file documented as of this encounter Last Filed Vital Signs Vital Sign Reading Time Taken Comments Blood Pressure 118/74 11/17/2017 5:05 PM DRILL OPERATOR PNEUMATIC Pulse 78 11/17/2017 5:05 PM DRILL OPERATOR PNEUMATIC Temperature 37.3 ??C (99.2 ??F) 11/17/2017 5:05 PM CS T Respiratory Rate 20 11/17/2017 5:05 PM DRILL OPERATOR PNEUMATIC Oxygen Saturation 98% 11/17/2017 5:05 PM DRILL OPERATOR PNEUMATIC Inhaled Oxygen Concentration - - Weight 88.5 kg (195 lb) 11/17/2017 5:05 PM DRILL OPERATOR PNEUMATIC Height 175.3 cm (5' 9 ) 11/17/2017 5:05 PM DRILL OPERATOR PNEUMATIC Body Mass Index 28.8 11/17/2017 5:05 PM DRILL OPERATOR PNEUMATIC documented in this encounter Patient Instructions * Patient Instructions* Marci Lisa APRN-COLLAR RUNNER - 11/17/2017 5:34 PM DRILL OPERATOR PNEUMATIC Images from the original note were not included. Upper Respiratory Infection WHAT YOU NEED TO KNOW: An upper respiratory infection is also called the common cold. It is an infection that can affect your nose, throat, ears, and sinuses. For healthy people, the common cold is usually not serious and does not need special treatment. Cold symptoms are usually worst for the first 3 to 5 days. Most peop le get better in 7 to 14 days. You may continue to cough for 2 to 3 weeks. Colds are caused by viruses and do not get better with antibiotics. DISCHARGE INSTRUCTIONS: Return to the emergency department if: ?? You have chest pain or [...] or concerns about your condition or care. Medicines: You may need any of the following: ?? Decongestants help reduce nasal congestion and help you breathe more easily. If you take decongestant pills, they may make you feel restless or cause problems with your sleep. Do not use decongestant sprays for [...] milligrams) total of acetaminophen in one day. ?? Take your medicine as directed. Contact your healthcare provider if you think your medicine is not helping or if you have side effects. Tell him or her if you are allergic to any medicine. Keep a list of the medicines, vitamins, and herbs you take. Include the amounts, and when and why you take them. Bring the list or the pill bottles to follow-up visits. Carry your medicine list with you in case of an emergency. Follow up with your healthcare provider as directed: Write down your questions so you remember to ask them during your visits. Self-care: ?? Rest as much as possible. Slowly [...] a tissue when you sneeze or cough. ?? 2017 [employer] Information is for End User's use only and may not be sold, redistributed or otherwise used for commercial purposes. All illustrations and images included in CareNotes?? are the copyrighted property of [employer] or [employer]. The above information is an rehab services aide only. It is not intended as medical advice for individual conditions or treatments. Talk to your doctor, nurse or pharmacist before following any medical regimen to see if it is safe and effective for you. L OPERATOR PNEUMATIC documented in this encounter Progress Notes * Marci Lisa APRN-CNP - 11/17/2017 5:23 PM CST Subjective: Claribel Cote is a 27 y.o. female who presents to the clinic for Chief Complaint Patient presents with ??? Cough ??? Wheezing . Her Primary Care Physician is Roosevelt Layne MD. She reports non- productive cough, nasal congestion and chest congestion/wheezing. Reports SOB with exertion. Denies fever, sinus congestion, or headaches. Also reports intermittent pain to right lower back x 1 days. States better when she sits s till. Denies urinary urgency, frequency, burning or pain. Onset of symptoms was 4 days ago, and is She is drinking plenty of fluids. She has been taking Ibuprofen. Daughter was sick last week with arespiratory virus. Past Medical History: Diagnosis Date ??? Hypothyroidism Family History Problem Relation Age of Onset ??? Cancer - Breast Mother Current Outpatient Prescriptions Medication Sig Dispense Refill ??? levothyroxine (SYNTHROID) 50 MCG tablet Take 50 mcg by mouth daily before breakfast No current facility-administered medications for this visit. Allergies Allergen Reactions ??? Keflex [Cephalexin] GI upset Social History Social History ??? Marital status: [...] ??? Not on file Social History Narrative Review of Systems Pertinent items are noted in HPI Constitutional: Negative Eyes: Negative Ears, nose, mouth, and throat: Positive for slight nasal congestion Respiratory: Positive for acute cough, wheezing, chest congestion Musculoskeletal: Positive for right lower back pain Cardiovascular: Negative Neurological: Negative Objective: BP 118/74 Pulse 78 Temp 99.2 ??F (Oral) Resp 20 Ht 1.753 m (5' 9 ) Wt 88.5 kg (195 lb) SpO2 98% BMI28.8 kg/m2 Exam General appearance: alert, cooperative, no distress, oriented to person, place, and time, wellappearing Head: normocephalic, without trauma Eyes: sclera and conjunctiva clear, EOMI and PERRLA, lids normal Ears: canals clear, tympanic membranes normal, hearing intact to voice Nose: nares open; no septal deviation is noted, nasal mucosa not inflamed, no maxillary tenderness Throat: no mucous membrane abnormalities, lips, mucosa, and tongue normal; teeth and gums normal Neck: range of motion is intact, no masses, no cervical adenopathy Lungs: breath sounds normal and symmetric; no rales or wheezes Heart: regular rhythm, normal S1 and S2, without murmurs, gallops or rubs Musculoskeletal: Right lower back under right posterior ribcage tender to mild palpation. No CVA tenderness bilaterally. Neurologic: mental status normal; alert and oriented X 3 Assessment: Encounter Diagnoses Name Primary? Acute URI Yes ??? Strain of muscle, fascia and tendon of lower back, initial encounter Plan: Discussed dx and tx of URIs Discussed the importance of avoiding unnecessary abx therapy. Suggested symptomatic OTC remedies. RTC prn. Offered Tessalon. Pt declined. Rest. Drink plenty of fluids. Use humidified air. Honey is a natural cough suppressant. Follow-up with PCP if symptoms last longer than 7-10 days or sooner for any new or worsening symptoms. Follow-up with PCP for any urinary symptoms or worsening of right lower back pain. No orders of the defined types were placed in this encounter. No results found for this or any previous visit (from the past 24 hour(s)). L OPERATOR PNEUMATIC documented in this encounter Plan of Treatment Not on file documented as of this encounter Visit Diagnoses Diagnosis Acute URI- Primary Acute upper respiratory infections of unspecified site Strain of muscle, fascia and tendon of lower back, initial encounter documented in this encounter Care Teams Cut Out And Marking Machine Operator Relationship Specialty Start Date End Date Roosevelt Layne MD PCP - General Family Medicine 08/17/17 documented as of this encounter
--- OUTSIDE RECORDS SUMMARY | 2024-10-09 16:33 | XMS_ITS | Encounter Summary ---
Author Organization [facility] Address [address] [place] [address] Phone Care Team Providers Care Audio Visual Secretary Name Role Phone Roosevelt Layne MD Primary Care Provider [phone] Reason for Visit * Reason Onset Date Comments Results 09/04/2023 Encounter Details Date Type Department Care Team (Late st Contact Info) Description 09/04/2023 Telephone [facility] [address] [place] [address] Pelon Tanner, COMPUTATIONAL PHYSICIST, RESEARCH AND DEVELOPMENT SPECIALIST #[address] [address] Results Social History Tobacco Use Types Packs/Day Years [...] on file documented as of this encounter Functional Status * Question Answer Date of Assessment Author Little interest or pleasure in doing things Not at all 09/04/2023 10:19 AM Ambar Miguel CMA Feeling down, depressed, or hopeless Not at all 09/04/2023 10:19 AM Ambar Miguel CMA * Over the past 2 weeks, how often have you been bothered by any of the following problems? Question Answer Date of Assessment Author Patient Health Questionnaire -2 Score 0 09/04/2023 10:19 AM Ambar Miguel CMA documented as of this encounter Miscellaneous Notes * Telephone Encounter - Gwendolyn Gold RN - 09/04/2023 1:30 PM GRINDER HAND Spoke with patient to relay note from Pelon. Patient verbalized understanding. Patient questioned if medication was called in. Informed her that Synthroid was called in to the [facility] today. DER HAND * Telephone Encounter - Gwendolyn Gold RN - 09/04/2023 1:29 PM GRINDER HAND ----- Message from Pelon Tanner APRN, DMITRIY sent at 09/04/2023 12:55 PM GRINDER HAND ----- Cholesterol moderately elevated. Other labs look great! DER HAND documented in this encounter Plan of Treatment Upcoming Encounters Date Type Department Care Team (Late st Contact Info) Description 10/31/2024 4:00 PM GRINDER HAND Office Visit [facility] [place] [address] Pelon Tanner APRN, RESEARCH AND DEVELOPMENT SPECIALIST #[address] [address] documented as of this encounter Visit Diagnoses Not on filedocumented in this encounter Additional Health Concerns Assessment Noted Time PHQ-9 Depression Total Score: 0 02/02/20 20 11:19 AM CDT documented as of this encounter Care Teams Audio Visual Secretary Relationship Specialty Start Date End Date Roosevelt Layne MD #[address] [address] PCP - General Family Medicine 09/03/15 documented as of this encounter
--- OUTSIDE RECORDS SUMMARY | 2024-10-09 16:33 | XMS_ITS | Encounter Summary ---
Author Organization [facility] Address [address] [place] [address] Care Team Providers Care Cigarette Paper Tester Name Role Phone Roosevelt Layne MD Primary Care Provider Encounter Details Date Type Department Care Team (Late st Contact Info) Description 04/27/2020 Orders Only [facility], Diabetes and Metabolism [address] [place], [place] [id number] Shayne Hua MD [address] [place] [address] Hypothyroidism, unspecified type Social History Tobacco Use Types Packs/Day Years [...] Hypothyroidism, unspecified type documented in this encounter Care Teams Cigarette Paper Tester Relationship Specialty Start Date End Date Roosevelt Layne MD PCP - General Family Medicine 08/17/17 documented as of this encounter
--- OUTSIDE RECORDS SUMMARY | 2024-10-09 16:33 | XMS_ITS | Clinical Summary ---
Author Organization [facility] Address [address] [facility], [address] [address] Phone Care Team Providers Care Project Lead Name Role Phone Roosevelt Layne MD Primary Care Provider [phone] Allergies Active Allergy Reactions Criticality Noted Date Comments Cephalexin Unknown,Other (see Comments) 08/17/2017 GI upset GI upset GI upset Sumatriptan Other (see Comments) 01/07/2016 Numbness on the left side. Numbness on the left side. Numbness on the left side. Numbness on the left side. Numbness on the left side. Numbness on the left side. Medications butalbital-acet aminophen-caffe ine-codeine (FIORICET WITH CODEINE) [id number] MG CapsuleIndicati ons:Migraine without aura and with status migrainosus, not intractable Take 1 Capsule by mouth every 6 hours as needed for Migraine. 30 Capsule 1 09/04/20 23 Active albuterol (ProAir HFA) 108 (90 Base) MCG/ACT Aerosol Solution take 2 Puffs by inhalation every 4 hours as needed for Wheezing or Cough. 18 g 12/21/19 24 Active Synthroid 100 MCG TabletIndicatio ns:Hypothyroidi sm, unspecified type Take 1 tablet by mouth once daily 90 Tablet 09/12/20 24 Active Synthroid 100 MCG TabletIndicatio ns:Hypothyroidi sm, unspecified type Take 1 Tablet by mouth daily. 90 Tablet 3 09/04/20 23 024 Discontinued Active Problems Problem Noted Date Diagnosed Date URI, acute 07/28/2024 HLD (hyperlipidemia) 09/04/2023 Obesity (BMI 30-39.9) 05/09/2019 Skin lesion 05/09/2019 Freckles 05/09/2019 B12 deficiency 04/21/2017 Migraine without aura and wi th status migrainosus, not intractable 02/18/2017 Overweight (BMI 25.0-29.9) 02/18/2017 Hypothyroidism 03/22/2016 Vitamin D deficiency 11/07/2015 Chronic fatigue 11/02/2015 Migraine 09/03/2015 Resolved Problems Problem Noted Date Diagnosed Date Resolved Date Thyroid activity decreased 11/02/2015 0 11/23/2018 Encounters Date Type Department Care Team Description 09/10/2024 [facility] [place] [address] Pelon Tanner APRN, SUPERVISOR BUILDING MAINTENANCE Medication Refill 07/28/2024 5:00 PM CDT [facility] [place] [address] Roosevelt Layne MD Hypothyroidism, unspecified type (Primary Dx); Hyperlipidemia, unspecified hyperlipidemia type; URI, acute 07/28/2024 [facility] [place] [address] Roosevelt Layne MD 07/26/2024 [facility] [place] [address] Roosevelt Layne MD 07/23/2024 Telephone [facility] [place] [place] [address] [place] [address] Roosevelt Layne MD Appointment 07/22/2024 7:14 PM CDT - 07/22/2024 8:05 PM CDT [facility] [place] [address] Arnie Dos Santos, KATHY Viral URI Discharge Disposition: Discharged to home or Selfcare 07/22/2024 Travel from Last 3 Months Immunizations Immunization Administration Dates Next Due Hepatitis A Vaccine 09/06/2012 Hepatitis A Vaccine,unspecified Formulation 06/2012 Influenza Vaccine greater than 3 yrs 08/06/2019 Influenza Vaccine, MDCK,quadrivalent, pres free 08/06/2019 Influenza Vaccine, Quadrivalent, PF 09/04/2023 Influenza Vaccine,unspecified Formulation 2017 TB Skin Test 05/15/2014 TDAP Vaccine 01/21/2008 Family History Medical History Relation Name Comments No Known Problems Father Cancer Maternal Grandmother No Known Problems Mother Relation Name Status Comments Father Alive Maternal Grandmother Mother Alive Social History Tobacco Use Types Packs/Day Years Used Date Smoking Tobacco: Never Smokeless Tobacco: Never Tobacco Cessation:Counseling Given: No Alcohol Use Standard Drinks/Week Comments No 0 [...] Sign Reading Time Taken Comments Blood Pressure 113/55 07/22/2024 7:12 PM CDT Pulse 102 07/22/2024 7:12 PM CDT Temperature 36.7 ??C (98 ??F) 07/22/2024 7:12 PM CDT Respiratory Rate 22 07/22/2024 7:12 PM CDT Oxygen Saturation 98% 07/22/2024 7:12 PM CDT Inhaled Oxygen Concentration - - Weight 102.1 kg (225 lb) 07/22/2024 7:12 PM CDT Height 175.3 cm (5' 9 ) 07/22/2024 7:12 PM CDT Body Mass Index 33.23 07/22/2024 7:12 PM CDT Plan of Treatment Upcoming Encounters Date Type Department Care Team (Late st Contact Info) Description 10/31/2024 4:00 PM CVT TECH Office Visit [facility] [address] [place] [address] Pelon Tanner, TRANSLITERATOR, SUPERVISOR BUILDING MAINTENANCE [address] [facility] [address] [place] [address] Health Maintenance Due Date Last Done Comments Hepatitis B Immunization (1 of 3 - 19+ 3-dose series) 2007 Td Immunization Every 10 Years (Adults With 1 Tdap) 01/20/2018 01/21/2008 HPV/Cotest 2018 Influenza Immunization (#1) 2024 12/0 10/2022, 08/06/2019, 08/06/2019, Additional history exists SARS-COV-2 Immunization ( season) 2024 Cervical Cancer Screening (CCS) 01/13/2025 Pap Smear 01/13/2025 01/13/2022 Respiratory Syncytial Virus (RSV) Immunization (Adult) (1 - 1-dose 75+ series) 2063 Hepatitis C Virus (HCV) Screening Completed 01/13/2022 Meningococcal Immunization (ACWY) Aged Out No longer eligible based on patient's age to complete this topic Pneumococcal Immunization Combined Aged Out No longer eligible based on patient's age to complete this topic Rotavirus Immunization Aged Out No lo nger eligible based on patient's age to complete this topic Insurance [facility] Care Teams Project Lead Relationship Specialty Start Date End Date Roosevelt Layne MD [address] [place] [address] PCP - General Family Medicine 09/03/15
--- OUTSIDE RECORDS SUMMARY | 2024-10-09 16:33 | XMS_ITS | Encounter Summary ---
Author Organization [employer] Care Team Providers Care Pickler Helper Name Role Phone Roosevelt Layne MD Primary Care Provider [phone] Encounter Details Date Type Department Care Team (Latest Contact Info) Description 09/04/2023 Travel Social History Tobacco Use Types Packs/Day [...] Miguel CMA documented as of this encounter Plan of Treatment Upcoming Encounters Date Type Department Care Team ( Contact Info) Description 10/31/2024 4:00 PM CARROT GRADER INSPECTOR Office Visit [facility] [address] [place] [address] Pelon Tanner APRN, OCCUPATIONAL HEALTH SPECIALIST [address] [facility] [place] [address] documented as of this encounter Visit Diagnoses Not on filedocumented in this encounter Additional Health Concerns Assessment Noted Time PHQ-9 Depression Total Score: 0 02/02/20 20 11:19 AM CDT documented as of this encounter Care Teams Pickler Helper Relationship Specialty Start Date End Date Roosevelt Layne MD [address] [facility] [place] [address] PCP - General Family Medicine 09/03/15 documented as of this encounter
--- OUTSIDE RECORDS SUMMARY | 2024-10-09 16:33 | XMS_ITS | Encounter Summary ---
Author Organization [facility] Address [address] [place] [address] Care Team Providers Care Loader Malt House Name Role Phone Roosevelt Layne MD Primary Care Provider Reason for Visit * Reason Comments Follow-up Encounter Details Date Type Department Care Team (Late st Contact Info) Description 03/18/2019 2:40 PM CDT Office Visit [facility] Endocrinology, Diabetes and Metabolism [address] [place] [address] Shayne Hua MD [address] [place] [address] Hypothyroidism, unspecified type (Primary Dx) Social History Tobacco Use Types Packs/Day Years Used Date Smoking Tobacco: Never Smokeless Tobacco: Never Sex and Gender Information Value Date Recorded Sex Assigned at Not on file Gender Identity Not on file Sexual Orientation Not on file documented as of this encounter Last Filed Vital Signs Vital Sign Reading Time Taken Comments Blood Pressure 112/72 03/18/2019 2:27 PM CDT Pulse 67 03/18/2019 2:27 PM CDT Temperature 36.7 ??C (98 ??F) 03/18/2019 2:27 PM CDT Respiratory Rate - - Oxygen Saturation 98% 03/18/2019 2:27 PM CDT Inhaled Oxygen Concentration - - Weight - - Height - - Body Mass Index - - documented in this encounter Progress Notes * Shayne Hua MD - 03/18/2019 2:43 PM CDT Subjective: Claribel Cote is a 28 y.o. female who presents for f/u of hpyothroidism. Diagnosed in 2007 because of fatigue and increased sleep. Has been on levothyroxine 50 mcg daily. TSH had been 2-4. Levothyroxine was to 75 mcg daily in 08/2018. Following that, TSH was 2. Asymptomatic at this time. Has difficulty losing weight. Saw online merchandising manager in 11/2018. Migraines worsened after dose change. She had similar worsening after levothyroxine was first started but it stabilized after a few months. Feels OK now. Usually gets migraines around menses. Migraines have bothered her all her life, including childhood. She has seen neurology and was on preventive medications in past. Past Medical History: Diagnosis Date ??? Hypothyroidism Past Surgical History: Procedure Laterality Date ??? Section Family History Problem Relation Age of Onset ??? Cancer - Breast Mother Current Outpatient Prescriptions Medication Sig Dispense Refill ??? jflb-kvmc-lrapjlpcun-codeine (FIORICET WITH CODEINE) [id number] MG capsule Take 1 capsule by mouth every 4 hours as needed ??? levothyroxine (SYNTHROID) 75 MCG tablet Take 1 tablet by mouth once daily 30 tablet 11 No current facility-administered medications for this visit. Allergies Allergen Reactions ??? Keflex [Cephalexin] Other GI upset GI upset ??? Sumatriptan Other Numbness on the left side. Numbness on the left side. Numbness on the left side. Numbness on the left side. Social History Social History ??? Marital status: [...] file Social History Narrative Review of Systems Has gained 4 lbs in 6 mths. Objective: BP 112/72 (BP SITE: RIGHT ARM, BP POSITION: SITTING, BP CUFF SIZE: 11L) Pulse 67 Temp 98 ??F (36.7 ??C) (Oral) SpO2 98% General: alert, cooperative, no distress Thyroid: no goiter Lung: clear to auscultation bilaterally Heart: regular rate and rhythm, S1, S2 normal, no murmur, click, rub or gallop Extremities: No tremors Skin: keloids Lab Review Results for CLARIBEL COTE ( ) as of 03/18/2019 14:46 Ref. Range 09/10/2018 14:11 TSH Latest Ref Range: 0.450 - 4.500 uIU/mL 2.070 T4 Free Latest Ref Range: 0.82 - 1.77 ng/dL 1.21 Thyroid Peroxidase TPO Antibody Latest Ref Range: 0 - 34 IU/mL 9 Assessment: Hypothyroidism. controlled Plan: Continue levothyroxine 75 mcg daily. RTC 7 mths with TFTs documented in this encounter Plan of Treatment Not on file documented as of this encounter Procedures Procedure Name Priority Date/Time Associated Diagnosis Comments TSH+FREE T4 PANEL Routine 03/18/2019 2:5 4 PM CDT Hypothyroidism, unspecified type documented in this encounter Results * TSH+FREE T4 PANEL (03/18/2019 2:54 PM CDT) TSH 4.08 mIU/L [facility] Comment: ?Reference Range ?> or = 20 Years ??0.40-4.50 ? Ranges ?First trimester ?0.26-2.66 ?Second trimester ?? 0.55-2.73 ?Third trimester ?0.43-2.91 T4 Free 1.2 0.8 - 1.8 ng/dL [facility] Comment: Test Performed at: [facility] [id number] [place] [address] ??[id number] MIKAYLA VILLA DO,MPH Blood BLOOD SPECIMEN / Unknown 03/18/2019 2:54 PM CDT 03/18/2019 2:55 PM CDT Shayne Hua MD LAB - CHEMISTRY [facility] Organization Address City/State/[facility] Co de Phone Number [facility] [address] [place] [address] documented in this encounter Visit Diagnoses Diagnosis Hypothyroidism, unspecified type- Primary documented in this encounter Care Teams Loader Malt House Relationship Specialty Start Date End Date Roosevelt Layne MD PCP - General Family Medicine 08/17/17 documented as of this encounter
--- OUTSIDE RECORDS SUMMARY | 2024-10-09 16:33 | XMS_ITS | Encounter Summary ---
Author Organization [facility] Address [address] [place] [address] Care Team Providers Care Air Force Pilot Name Role Phone Roosevelt Layne MD Primary Care Provider [phone] Reason for Visit * Reason Onset Date Comments Follow-up 01/13/2018 Encounter Details Date Type Department Care Team (Late st Contact Info) Description 01/13/2018 Telephone [facility] [employer] [facility] AT [address] [address] Jocelyn Parsons Follow-up Social History Tobacco Use Types Packs/Day [...] on filedocumented in this encounter Care Teams Air [employer] Pilot Relationship Specialty Start Date End Date Roosevelt Layne MD PCP - General Family Medicine 08/17/17 documented as of this encounter
--- OUTSIDE RECORDS SUMMARY | 2024-10-09 16:33 | XMS_ITS | Encounter Summary ---
Author Organization [facility] Address [address] [facility] [address] [facility] [place] [address] Care Team Providers Care National Sales Name Role Phone Roosevelt Layne MD Primary Care Provider Reason for Visit * Reason Onset Date Comments Follow-up 08/19/2017 Encounter Details Date Type Department Care Team (Late st Contact Info) Description 08/19/2017 Telephone [facility] [place] [facility] AT [address] [address] [facility] Follow-up Social History Tobacco Use Types Packs/Day Years Used Date Smoking Tobacco: Never Assessed Sex and Gender Information Value Date Recorded Sex Assigned at Not on file Gender Identity Not on file Sexual Orientation Not on file documented as of this encounter Plan of Treatment Not on file documented as of this encounter Visit Diagnoses Not on filedocumented in this encounter Care Teams National Sales Relationship Specialty Start Date End Date Roosevelt Layne MD PCP - General Family Medicine 08/17/17 documented as of this encounter
--- OUTSIDE RECORDS SUMMARY | 2024-10-09 16:33 | XMS_ITS | Encounter Summary ---
Author Organization [facility] Address [address] [place] [address] Care Team Providers Care Cascade Operator Name Role Phone Roosevelt Layne MD Primary Care Provider [phone] Reason for Visit * Reason Comments Diarrhea body aches 1 night Nausea Encounter Details Date Type Department Care Team (Late st Contact Info) Description 11/29/2017 3:40 PM WOOL FLEECE GRADER Office Visit [facility] AT [address] [phone] Provider, [facility] Infectious gastroenteritis (Primary Dx) Social History Tobacco Use Types Packs/Day Years Used Date Smoking Tobacco: Never Smokeless Tobacco: Never Sex and Gender Information Value Date Recorded Sex Assigned at Not on file Gender Identity Not on file Sexual Orientation Not on file documented as of this encounter Last Filed Vital Signs Vital Sign Reading Time Taken Comments Blood Pressure 104/72 11/29/2017 3:40 PM WOOL FLEECE GRADER Pulse 111 11/29/2017 3:40 PM WOOL FLEECE GRADER Temperature 37.2 ??C (99 ??F) 11/29/2017 3:40 PM WOOL FLEECE GRADER Respiratory Rate - - Oxygen Saturation 96% 11/29/2017 3:40 PM WOOL FLEECE GRADER Inhaled Oxygen Concentration - - Weight 88.5 kg (195 lb) 11/29/2017 3:40 PM WOOL FLEECE GRADER Height 175.3 cm (5' 9 ) 11/29/2017 3:40 PM WOOL FLEECE GRADER Body Mass Index 28.8 11/29/2017 3:40 PM WOOL FLEECE GRADER documented in this encounter Patient Instructions * Patient Instructions* Yvette Holly, WHITE LEAD FILTERER-COLUMNIST/COMMENTATOR - 11/29/2017 3:52 PM WOOL FLEECE GRADER Images from the original note were not included. Take OTC Imodium or Pepto Bismol for loose stools BRAT diet: bananas, rice, applesauce or toast. Increase fluid intake clear liquids until diarrhea stops Resume your normal diet in 2-3 days after diarrhea stops. If persists or worsens for more than 48-72 hours follow up in clinic or see PCP Xi Gastroenteritis WHAT YOU NEED TO KNOW: Gastroenteritis, or stomach flu, is an infection of the stomach and intestines. DISCHARGE INSTRUCTIONS: Call 911 for any of the following: ?? You have trouble breathing or a very fast pulse. Return to the emergency department if: ?? You see blood in your diarrhea. ?? You cannot stop vomiting. ?? You have not urinated for 12 hours. ?? You feel like you are going to faint. Contact your healthcare provider if: ?? You have a fever. ?? You continue to vomit or have diarrhea, even after treatment. ?? You see worms in your diarrhea. ?? Your mouth or eyes are dry. You are not urinating as much or as often. ?? You have questions or concerns about your condition or care. Medicines: ?? Medicines may be given to stop vomiting or diarrhea, decrease abdominal cramps, or treat an infection. ?? Take your medicine as directed. Contact [...] with you in case of an emergency. Manage your symptoms: ?? Drink liquids as directed. Ask your healthcare provider how much liquid to drink each day, and which liquids are best for you. You may also need to drink an oral rehydration solution (ORS). An ORShas the right amounts of sugar, salt, and minerals in water to replace body fluids. ?? Eat bland foods. When you feel hungry, begin eating soft, bland foods. Examples are bananas, clear soup, potatoes, and applesauce. Do not have dairy products, alcohol, sugary drinks, or drinks with caffeine until you feel better. ?? Rest as much as possible. Slowly start to do more each day when you begin to feel better. Prevent the spread of gastroenteritis: Gastroenteritis can spread easily. Keep yourself, your family, and your surroundings clean to help prevent the spread of gastroenteritis: ?? Wash your hands often. Use soap and water. Wash your hands after you use the bathroom, change a child's diapers, or sneeze. Wash your hands before you prepare or eat food. ?? Clean surfaces and do laundry often. Wash your clothes and towels separately from the rest of the laundry. Clean surfaces in your home with antibacterial alley cleaner or bleach. ?? Clean food thoroughly and cook safely. Wash raw vegetables before you cook. Cook meat, fish, andeggs fully. Do not use the same dishes for raw meat as you do for other foods. Refrigerate any leftover food immediately. ?? Be aware when you camp or travel. Drink only clean water. Do not drink from webb or lakes unless you purify or boil the water first. When you travel, drink bottled water and do not add ice. Do not eat fruit that has not been peeled. Do not eat raw fish or meat that is not fully cooked. Follow up with your healthcare provider as directed: Write down your questions so you remember to ask them during your visits. ?? 2017 [employer] Information is for End User's use only and may not be sold, redistributed or otherwise used for commercial purposes. All illustrations and images included in CareNotes?? are the copyrighted property of [employer] or [employer]. The above information is an computer aided design designer only. It is not intended as medical advice for individual conditions or treatments. Talk to your doctor, nurse or pharmacist before following any medical regimen to see if it is safe and effective for you. FLEECE GRADER documented in this encounter Progress Notes * Yvette Holly APRN-COLUMNIST/COMMENTATOR - 11/29/2017 3:46 PM CST [facility] Chief Complaint Patient presents with ??? Diarrhea body aches 1 night ??? Nausea SUBJECTIVE: General The history is provided by the patient. This is a new problem. The current episode started yesterday. The problem occurs constantly. The problem has been gradually worsening. Pertinent negatives include no headaches. The symptoms are relieved by NSAIDs. 27 y/o female presents with body aches, n/v/d started last night Past Medical History: Diagnosis Date ??? Hypothyroidism Current Outpatient Prescriptions on File Prior to Visit Medication Sig Dispense Refill ??? levothyroxine (SYNTHROID) 50 MCG tablet Take 50 mcg by mouth daily before breakfast No current facility-administered medications on file prior to visit. Past Surgical History: Procedure Laterality Date ??? NEGATIVE SURGICAL HISTORY Social History Social History ??? Marital status: [...] ??? Not on file Social History Narrative Family History Problem Relation Age of Onset ??? Cancer - Breast Mother Current Outpatient Prescriptions Medication Sig Dispense Refill ??? ondansetron (ZOFRAN) 4 MG tablet Take 1 tablet by mouth every 8 hours as needed for Nausea/Vomiting 20 tablet 0 ??? levothyroxine (SYNTHROID) 50 MCG tablet Take 50 mcg by mouth daily before breakfast No current facility-administered medications for this visit. Allergies Allergen Reactions ??? Keflex [Cephalexin] GI upset REVIEW OF SYSTEMS: Review of Systems Constitutional: Positive for chills and fever. Aches 100.1 highest HENT: Negative for congestion, ear discharge, ear pain and sore throat. Respiratory: Negative for cough. Gastrointestinal: Positive for diarrhea, nausea and vomiting. Neurological: Negative for dizziness and headaches. OBJECTIVE: General appearance: alert, well appearing, and in no distress. BP 104/72 (BP SITE: LEFT ARM, BP POSITION: SITTING, BP CUFF SIZE: Adult) Pulse 111 Temp 99 ??F (Oral) Ht 1.753 m (5' 9 ) Wt 88.5 kg (195 lb) SpO2 96% BMI 28.8 kg/m2 Physical Exam Constitutional: She is oriented to person, place, and time and well-developed, well-nourished, and in no distress. HENT: Head: Normocephalic and atraumatic. Mouth/Throat: Oropharynx is clear and moist. Bilateral TM's normal Normal nasal turbinates Neck: Normal range of motion. Neck supple. Cardiovascular: Normal rate and regular rhythm. Pulmonary/Chest: Effort normal. Abdominal: Soft. Bowel sounds are normal. Neurological: She is alert and oriented to person, place, and time. Vitals reviewed. ASSESSMENT: Office Visit on 11/29/17 INFLUENZA A+B - POINT OF CARE (AMB) Result Value Ref Range Influenza A Ag Negative Negative Influenza B Ag Negative Negative Influenza Control neg/pos NEGATIVE - POSITIVE Influenza Lot# [id number] Influenza Expir Date Encounter Diagnosis Name Primary? Infectious gastroenteritis Yes PLAN: Take OTC Imodium or Pepto Bismol for loose stools BRAT diet: bananas, rice, applesauce or toast. Increase fluid intake clear liquids until diarrhea stops Resume your normal diet in 2-3 days after diarrhea stops. If persists or worsens for more than 48-72 hours follow up in clinic or see PCP Xi FLEECE GRADER documented in this encounter Plan of Treatment Not on file documented as of this encounter Procedures Procedure Name Priority Date/Time Associated Diagnosis Comments INFLUENZA A+B - POINT OF CARE (AMB) Routine 11/29/2017 Infectious gastroenteritis documented in this encounter Results * INFLUENZA A+B - POINT OF CARE (AMB) (11/29/2017) Influenza A Antigen Rapid Negative Negative Influenza B Antigen Rapid Negative Negative Influenza Internal Control neg/pos NEGATIVE - POSITIVE Influenza Lot Number [id number] Influenza Expiration Date Other NASOPHARYNGEAL SWAB / Unknown 11/29/2017 Yvette L Holly WHITE LEAD FILTERER-COLUMNIST/COMMENTATOR LAB - POINT O F CARE ORDERABLES documented in this encounter Visit Diagnoses Diagnosis Infectious gastroenteritis- Primary Infectious colitis, enteritis, and gastroenteritis documented in this encounter Care Teams Cascade Operator Relationship Specialty Start Date End Date Roosevelt Layne MD PCP - General Family Medicine 08/17/17 documented as of this encounter
--- OUTSIDE RECORDS SUMMARY | 2024-10-09 16:33 | XMS_ITS | Encounter Summary ---
Author Organization [facility] Health Address [address] [place] [address] Care Team Providers Care Political Science Faculty Member Name Role Phone Roosevelt Layne MD Primary Care Provider Reason for Visit * Reason Comments Thyroid Problem hypothyroidism Encounter Details Date Type Department Care Team (Latest Contact Info) Description 09/10/2018 1:00 PM CARD STRIPPER Office Visit [facility] Endocrinology, Diabetes and Metabolism [address] [place], [place] [id number] Shayne Hua MD [address] [place] [address] Other specified hypothyroidism (Primary Dx) Social History Tobacco Use Types Packs/Day Years Used Date Smoking Tobacco: Never Smokeless Tobacco: Never Sex and Gender Information Value Date Recorded Sex Assigned at Not on file Gender Identity Not on file Sexual Orientation Not on file documented as of this encounter Last Filed Vital Signs Vital Sign Reading Time Taken Comments Blood Pressure 110/74 09/10/2018 1:11 PM CARD STRIPPER Pulse 78 09/10/2018 1:11 PM CARD STRIPPER Temperature - - Respiratory Rate - - Oxygen Saturation 98% 09/10/2018 1:11 PM CARD STRIPPER Inhaled Oxygen Concentration - - Weight 96 kg (211 lb 9.6 oz) 09/10/2018 1:11 PM CARD STRIPPER Height 177.8 cm (5' 10 ) 09/10/2018 1:11 PM CARD STRIPPER Body Mass Index 30.36 09/10/2018 1:11 PM CARD STRIPPER documented in this encounter Progress Notes * Shayne Hua MD - 09/10/2018 1:46 PM CST Subjective: Nick Cote is a 27 y.o. female who presents for her initial visit for hpyothroidism. Diagnosed in 2007 because of fatigue and increased sleep. Has been on levothyroxine 50 mcg daily. Noticed weight gain this year. Recent TSH (07/06/2018) was 4.2. Levothyroxine was increased 6 weeks ago to 75 mcg daily. TSH has been ~3 in past. Has difficulty losing weight. Has not seen a mechatronics technologist. Migraines worsened after dose change. She had similar worsening after levothyroxine was first started but it stabilized after a few months. Usually gets migraines around menses. Migraines have bothered her all her life, including childhood. She has seen neurology and was on preventive medications in past. Past Medical History: Diagnosis Date ??? Hypothyroidism Past Surgical History: Procedure Laterality Date ??? Section Family History Problem Relation Age of Onset ??? Cancer - Breast Mother Current Outpatient Prescriptions Medication Sig Dispense Refill ??? levothyroxine (SYNTHROID) 75 MCG tablet Take 1 tablet by mouth once daily ??? kpbp-dqef-envgzutmri-codeine (FIORICET WITH CODEINE) [id number] MG capsule Take 1 capsule by mouth every 4 hours as needed No current facility-administered medications for this visit. Allergies Allergen Reactions ??? Keflex [Cephalexin] GI upset Social History Social History ??? Marital status: Single Spouse name: N/A ??? Number of children: 1, 6 year old. ??? 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 Smoking status: Never Smoker ??? Smokeless tobacco: Never Used Review of Systems A comprehensive review of systems was negative except as described in HPI. Objective: BP 110/74 (BP SITE: RIGHT ARM, BP POSITION: SITTING, BP CUFF SIZE: 11) Pulse 78 Ht 5' 10 (1.778 m)Wt 211 lb 9.6 oz (96 kg) SpO2 98% BMI 30.36 kg/m2 General: alert, cooperative, has headache Oropharynx: no mucous membrane abnormalities Eyes: sclera and conjunctiva clear, EOMI and PERRLA, lids normal Thyroid: No goiter Lung: clear to auscultation bilaterally Heart: regular rate and rhythm, S1, S2 normal, no murmur, click, rub or gallop Abdomen: soft without mass, non-tender, with normal bowel sounds Extremities: extremities normal, atraumatic, no cyanosis or edema. No tremors Pulses: 2+ and symmetric Skin: Warm and dry. no hyperpigmentation, vitiligo, or suspicious lesions. She has freckles and keloids Neuro: normal without focal findings mental status, speech normal, alert and oriented x 3 reflexes normal and symmetric Lab Review As above (in care everywhere) Assessment: Hypothyroidism. This diagnosis was discussed and reviewed with the patient including the advantagesof drug therapy. Obesity: Refer to mechatronics technologist. Plan: Continue levothyroxine 75 mcg daily. TSH, free T4 today, and in 4 months Advised to interact via my chart if needed RTC 4 mths STRIPPER documented in this encounter Plan of Treatment Scheduled Orders Name Type Priority Associated Diagnoses Orde r Schedule TSH+FREE T4 PANEL Lab Routine Other specified hypothyroidism Expected: 11/11/2018, Expires: 10/11/2019 documented as of this encounter Procedures Procedure Name Priority Date/Time Associated Diagnosis Comments TSH+FREE T4 PANEL Routine 09/10/2018 2:1 1 PM CARD STRIPPER Other specified hypothyroidism documented in this encounter Results * TSH+FREE T4 PANEL (09/10/2018 2:11 PM CARD STRIPPER) TSH 2.070 0.450 - 4.500 uIU/mL [facility] INSURANCE BILL T4 Free 1.21 0.82 - 1.77 ng/dL [facility] INSURANCE BILL Blood BLOOD SPECIMEN / Unknown 09/10/2018 2:11 PM CARD STRIPPER 09/10/2018 Narrative Resulting Agency Comment [facility] [address] ??[facility] [id number] Shayne Hua MD LAB - CHEMISTRY ZEB ADAMSON [facility] INSURANCE BILL [address] [place] [address] documented in this encounter Visit Diagnoses Diagnosis Other specified hypothyroidism- Primary documented in this encounter Administered Medications Administered Medications Medication Order MAR Action Action Date Dose Rate Site PPD Given 05/15/2014 00:00 CDT documented in this encounter Care Teams Political Science Faculty Member Relationship Specialty Start Date End Date Roosevelt Layne MD PCP - General Family Medicine 08/17/17 documented as of this encounter
--- OUTSIDE RECORDS SUMMARY | 2024-10-09 16:33 | XMS_ITS | Encounter Summary ---
Author Organization [facility] Address [address] [place] [address] Phone Care Team Providers Care Wall Insulation Sprayer Name Role Phone Roosevelt Layne MD Primary Care Provider [phone] Reason for Visit * Reason Comments Upper Respiratory Infection Encounter Details Date Type Department Care Team (Late st Contact Info) Description 07/28/2024 5:[address] [facility] - Family [facility] [address] [place] [address] Roosevelt Layne MD [address] [address] Hypothyroidism, unspecified type (Primary Dx); Hyperlipidemia, unspecified hyperlipidemia type; URI, acute Social History Tobacco Use Types Packs/Day Years [...] on file documented as of this encounter Progress Notes * Roosevelt Layne MD - 07/28/2024 5:00 PM CDT Patient was assessed via telephone. Total time spent on this date of service was 5 minutes. Patientverbally consented for this service to be performed and billed. This visit was performed when I was physically located at home. The patient was at home. CC: Viral illness. S: Patient went to the ER for sore throat. Was negative for COVID and flu. Was discharged on Prednisone and Amoicillin. Says she is now getting her voice back after using Tessalon Perles. Done with Prednisone and Amoxicillin. O: Psych: alert & oriented. A/P: Hypothyroidism - will order TSH; continue current Synthroid dose for now. Hyperlipidemia - will order lipid panel. URI - improving; continue Tessalon Perles PRN.. F/U with Pelon Tanner NP in 2 months. documented in this encounter Plan of Treatment Upcoming Encounters Date Type Department Care Team (Late st Contact Info) Description 10/31/2024 4:00 PM PERCUSSION INSTRUCTOR Office Visit [facility] - Family [facility] [address] [place] [address] Pelon Tanner APRN, SECURITY VEHICLE PATROL OFFICER [address] [address] Scheduled Orders Name Type Priority Associated Diagnoses Orde r Schedule LIPID PANEL Lab Routine Hyperlipidemia, unspecified hyperlipidemia type Expected: 07/28/2024 (Approximate), Expires: 07/28/2025 THYROID STIMULATING HORMONE (TSH) Lab Routine Hypothyroidism, unspecified type Expected: 07/28/2024 (Approximate), Expires: 07/28/2025 documented as of this encounter Visit Diagnoses Diagnosis Hypothyroidism, unspecified type- Primary Hyperlipidemia, unspecified hyperlipidemia type URI, acute Acute upper respiratory infections of unspecified site documented in this encounter Additional Health Concerns Assessment Noted Time PHQ-9 Depression Total Score: 0 02/02/20 20 11:19 AM CDT documented as of this encounter Care Teams Wall Insulation Sprayer Relationship Specialty Start Date End Date Roosevelt Layne MD [address] [address] PCP - General Family Medicine 09/03/15 documented as of this encounter
--- OUTSIDE RECORDS SUMMARY | 2024-10-09 16:33 | XMS_ITS | Encounter Summary ---
Author Organization [facility] Health Address [address] [place] [address] Care Team Providers Care Dough Maker Name Role Phone Roosevelt Layne MD Primary Care Provider Encounter Details Date Type Department Care Team (Late st Contact Info) Description 09/10/2018 Orders Only [facility] Endocrinology, Diabetes and Metabolism [address] [place] [address] Shayne Hua MD [address] [place] [address] Social History Tobacco Use Types Packs/Day Years Used Date Smoking Tobacco: Never Smokeless Tobacco: Never Sex and Gender Information Value Date Recorded Sex Assigned at Not on file Gender Identity Not on file Sexual Orientation Not on file documented as of this encounter Plan of Treatment Not on file documented as of this encounter Procedures Procedure Name Priority Date/Time Associated Diagnosis Comments THYROID PEROXIDASE ANTIBODY 09/10/2018 2:11 PM SHEEP OR CALF GRADER documented in this encounter Results * THYROID PEROXIDASE ANTIBODY (09/10/2018 2:11 PM SHEEP OR CALF GRADER) Thyroid Peroxidase TPO Antibody 9 0 - 34 IU/mL [facility] INSURANCE BILL 09/10/2018 2:11 PM SHEEP OR CALF GRADER 09/10/2018 Narrative Resulting Agency Comment [facility] [place] [address] ??[facility] [phone] Shayne Hua MD LAB - CHEMISTRY ZEB ADAMSON [facility] INSURANCE BILL [address] [place] [address] documented in this encounter Visit Diagnoses Not on filedocumented in this encounter Care Teams Dough Maker Relationship Specialty Start Date End Date Roosevelt Layne MD PCP - General Family Medicine 08/17/17 documented as of this encounter
--- OUTSIDE RECORDS SUMMARY | 2024-10-09 16:33 | XMS_ITS | Encounter Summary ---
Author Organization [facility] Health Address [address] [facility] [place] [address] Care Team Providers Care Tilt Tray Driver Name Role Phone Roosevelt Layne MD Primary Care Provider Reason for Visit * Reason Comments Thyroid Problem Encounter Details Date Type Department Care Team (Late st Contact Info) Description 11/23/2020 4:00 PM HOT POND OPERATOR Video Visit [facility] Endocrinology, Diabetes and Metabolism [address] [place], [place] [id number] Shayne Hua MD [address] [place] [address] Hypothyroidism, unspecified type Social History Tobacco Use [...] as of this encounter Progress Notes * Shayne Hua MD - 11/23/2020 4:10 PM CST Subjective: Telephone Note Today's visit was conducted virtually due to COVID-19 countermeasures. The patient has given verbalconsent to have today's visit conducted by this same means with treatment provided remotely. The patient verbally consents to the billing and collection practices of the provider's medical group. Patient location: Home This encounter was performed using: audio Reason for not using video for visit: patient does not have the technology Total time spent on visit on date of encounter is: 15 minutes with 13 minutes spent in medical discussion Marci Cote is a 30 y.o. female who presents for f/u of hypothroidism. Diagnosed in 2007 because of fatigue and increased sleep. Levothyroxine was increased to 100 mcg daily in March 2019 because TSH was 4. Asymptomatic at this time. Feels well Has difficulty losing weight. Saw authorization representative in 11/2018. H/o Migraines. They have not [...] Outpatient Medications Medication Sig Dispense Refill ??? zkdj-fowf-yugukedquz-codeine (FIORICET WITH CODEINE) 16-905-98-30 MG capsule Take 1 capsule by mouth every 4 hours as needed ??? EUTHYROX 100 MCG tablet Take 1 tablet by mouth once daily 90 tablet 3 No current facility-administered medications for this visit. Allergies Allergen Reactions ??? Keflex [Cephalexin] Other GI upset GI upset ??? Sumatriptan Other Numbness on the left side. Numbness on the left side. Numbness on the left side. Numbness on the left side. Objective: General: alert, cooperative, no distress Lab Review 10/24 TSH 1.2 Assessment: Hypothyroidism. controlled Plan: Continue levothyroxine 100 mcg daily. Recheck TFTs now. RTC 12 mths POND OPERATOR documented in this encounter Plan of Treatment Scheduled Orders Name Type Priority Associated Diagnoses Orde r Schedule TSH+FREE T4 PANEL Lab Routine Hypothyroidism, unspecified type Ordered: 11/23/2020 documented as of this encounter Visit Diagnoses Diagnosis Hypothyroidism, unspecified type- Primary documented in this encounter Care Teams Tilt Tray Driver Relationship Specialty Start Date End Date Roosevelt Layne MD PCP - General Family Medicine 08/17/17 documented as of this encounter
--- OUTSIDE RECORDS SUMMARY | 2024-10-09 16:33 | XMS_ITS | Encounter Summary ---
Author Organization [facility] Health Address [address] [place] [address] Care Team Providers Care Laborer Hide House Name Role Phone Roosevelt Layne MD Primary Care Provider Encounter Details Date Type Department Care Team (Late st Contact Info) Description 03/22/2019 Orders Only [facility] Endocrinology, Diabetes and Metabolism [address] [place], [place] [id number] Shayne Hua MD [address] [place] [address] Social History Tobacco Use Types Packs/Day Years Used Date Smoking Tobacco: Never Smokeless Tobacco: Never Sex and Gender Information Value Date Recorded Sex Assigned at Not on file Gender Identity Not on file Sexual Orientation Not on file documented as of this encounter Progress Notes * Shayne Hua MD - 03/22/2019 2:21 PM CDT Dose increased to 100 due to TSH of 4 documented in this encounter Plan of Treatment Not on file documented as of this encounter Visit Diagnoses Not on filedocumented in this encounter Care Teams Laborer Hide House Relationship Specialty Start Date End Date Roosevelt Layne MD PCP - General Family Medicine 08/17/17 documented as of this encounter
--- OUTSIDE RECORDS SUMMARY | 2024-10-09 16:33 | XMS_ITS | Encounter Summary ---
Author Organization [facility] Health Address [address] [place] [address] Care Team Providers Care Hemp Fiber Taker Off Name Role Phone Roosevelt Layne MD Primary Care Provider [phone] Reason for Visit * Reason Comments Nutrition Consult Encounter Details Date Type Department Care Team (Late st Contact Info) Description 11/23/2018 1:00 PM FIRE AND SAFETY HELPER Office Visit [facility] Endocrinology, Diabetes and Metabolism [address] [place] [address] Donna Cornejo, RD/LD [address] [place] [address] Class 1 obesity without serious comorbidity with body mass index (BMI) of 33.0 to 33.9 in adult, unspecified obesity type (Primary Dx) Social History Tobacco Use Types Packs/Day Years Used Date Smoking Tobacco: Never Smokeless Tobacco: Never Sex and Gender Information Value Date Recorded Sex Assigned at Not on file Gender Identity Not on file Sexual Orientation Not on file documented as of this encounter Last Filed Vital Signs Vital Sign Reading Time Taken Comments Blood Pressure 110/70 11/23/2018 1:43 PM FIRE AND SAFETY HELPER Pulse - - Temperature 36.6 ??C (97.8 ??F) 11/23/2018 1:43 PM CS T Respiratory Rate 14 11/23/2018 1:43 PM FIRE AND SAFETY HELPER Oxygen Saturation - - Inhaled Oxygen Concentration - - Weight 95.9 kg (211 lb 6.4 oz) 11/23/2018 1:43 P M FIRE AND SAFETY HELPER Height 168.9 cm (5' 6.5 ) 11/23/2018 1:43 PM FIRE AND SAFETY HELPER Body Mass Index 33.61 11/23/2018 1:43 PM FIRE AND SAFETY HELPER documented in this encounter Progress Notes * Donna Cornejo RD/NUSRAT - 11/23/2018 1:54 PM CST Nutrition Notes 11/23/2018 Weight: 211 lb 6.4 oz (95.9 kg) No results found for: A1C Assessment: Ms. Cote is a 28 y.o. female with obesity. She states that she currently does not follow any dietor calorie counting. Patient was receptive to learning about diet. Diet history was obtained and discussed. The patient was introduced to calorie counting and meal planning. Portion control, strategies for eating away from home and simple plate distribution were also incorporated. The pt demonstrated basicunderstanding and stated she would utilize the information at home Intervention/Plan/Goals: 1. Keep calories to 1500 per day 2. Use adelaida on phone for tracking 3. Increase physical activity Supervising physician Dr. Hua Total amount of time spent counseling the patient was 60 minutes. AND SAFETY HELPER documented in this encounter Plan of Treatment Not on file documented as of this encounter Visit Diagnoses Diagnosis Class 1 obesity without serious comorbidity with body mass index (BMI) of 33.0 to 33.9 in adult, unspecified obesity type- Primary documented in this encounter Care Teams Hemp Fiber Taker Off Relationship Specialty Start Date End Date Roosevelt Layne MD PCP - General Family Medicine 08/17/17 documented as of this encounter
--- OUTSIDE RECORDS SUMMARY | 2024-10-09 16:33 | XMS_ITS | Encounter Summary ---
Author Organization [facility] Address [address] [facility] [place] [address] Care Team Providers Care Nursing Informatics Analyst Name Role Phone Roosevelt Layne MD Primary Care Provider [phone] Reason for Visit * Reason Onset Date Comments Follow-up 11/19/2017 Encounter Details Date Type Department Care Team (Late st Contact Info) Description 11/19/2017 Telephone [facility] Vaccibody [facility] AT [address] [address] Provider, Luke Exp [facility] Follow-up Social History Tobacco Use Types Packs/Day [...] on filedocumented in this encounter Care Teams Nursing Informatics Analyst Relationship Specialty Start Date End Date Roosevelt Layne MD PCP - General Family Medicine 08/17/17 documented as of this encounter
--- OUTSIDE RECORDS SUMMARY | 2024-10-09 16:33 | XMS_ITS | Encounter Summary ---
Author Organization [facility] Address [address] [place] [address] Phone Care Team Providers Care Carburizing Furnace Operator Name Role Phone Roosevelt Layne MD Primary Care Provider [phone] Reason for Visit * Reason Comments Cough Encounter Details Date Type Department Care Team ([facility] Contact Info) Description 07/22/2024 7:14 PM CDT - 07/22/2024 8:05 PM CDT Emergency [facility] [address] [place] [address] Arnie Dos Santos, PAC [address] [place] [address] Viral URI Discharge Disposition: Discharged to home or Selfcare Social History Tobacco Use Types Packs/Day Years [...] Mass Index 33.23 07/22/2024 7:12 PM CDT documented in this encounter Discharge Instructions * Discharge Instructions* Arnie Dos Santos PAC - 07/22/2024 8:01 PM CDT Continue to rest and encourage fluids. You may continue your amoxicillin and prednisone prescriptions. Take Tessalon Perles as prescribed for cough. Gupf-rxk-bdxacej cold and flu medicine or Chloraseptic spray may be used. Follow-up with your doctor documented in this encounter Medications at Time of Discharge albuterol (ProAir HFA) 108 (90 Base) MCG/ACT Aerosol Solution take 2 Puffs by inhalation every 4 hours as needed for Wheezing or Cough. 18 g 12/21/2023 butalbital-acetam inophen-caffeine- codeine (FIORICET WITH CODEINE) 35-870-48-30 MG CapsuleIndication s:Migraine without aura and with status migrainosus, not intractable Take 1 Capsule by mouth every 6 hours as needed for Migraine. 30 Capsule 1 09/04/2023 benzonatate (TESSALON) 100 MG Capsule Take 1 Capsule by mouth 3 times daily as needed for Cough for up to 10 days. 30 Capsule 07/22/2024 4 Synthroid 100 MCG TabletIndications :Hypothyroidism, unspecified type Take 1 Tablet by mouth daily. 90 Tablet 3 09/04/2023 4 documented as of this encounter ED Notes * Shannan Bray RN - 07/22/2024 8:04 PM CDT Patient discharged. Discharge instructions and patient educational material reviewed with patient; questions and concerns addressed; patient verbalizes understanding, using teach back. Patient was given 1 prescription. Patient discharged per ambulatory mode with self as responsible alliance party. * Arnie Dos Santos, PAC - 07/22/2024 8:01 PM CDT Chief Complaint Patient presents with Cough Cough Associated symptoms: headaches, myalgias and sore throat Associated symptoms: no chest pain, no chills, no fever, no rash, no rhinorrhea, no shortness of breath and no wheezing Patient presents ambulatory to the emergency room through triage complaining of cold and flu symptoms for approximately 5 days. Reports dry cough, fatigue, sore throat, achiness. Denies fever, chills, sweats, chest pain, wheezing, shortness of breath, abdominal pain, vomiting, diarrhea, throat exudate, difficulty swallowing, urinary complaint. Was seen at local urgent care 5 days ago, had negative strep test. Was discharged home with amoxicillin, prednisone. States symptoms are not improving. Has not followed up with PCP. No significant cardiopulmonary history reported. No current facility-administered medications for this encounter. Current Outpatient Medications Medication Sig Dispense Refill albuterol (ProAir HFA) 108 (90 Base) MCG/ACT Aerosol Solution take 2 Puffs by inhalation every 4 hours as needed for Wheezing or Cough. 18 g 0 benzonatate (TESSALON) 100 MG Capsule Take 1 Capsule by mouth 3 times daily as needed for Cough forup to 10 days. 30 Capsule 0 zybjoagzxv-cqbyafsxkvhdn-kgjpftme-codeine (FIORICET WITH CODEINE) 35-764-50-30 MG Capsule Take 1 Capsule by mouth every 6 hours as needed for Migraine. 30 Capsule 1 Synthroid 100 MCG Tablet Take 1 Tablet by mouth daily. 90 Tablet 3 Allergies Allergen Reactions Cephalexin Unknown and Other (see Comments) GI upset GI upset GI upset Sumatriptan Other (see Comments) Numbness on the left side. Numbness on the left side. Numbness on the left side. Numbness on the left side. Numbness on the left side. Numbness on the left side. Past Medical History Positives Diagnosis Date Anemia, iron deficiency B12 deficiency Dyslipidemia Migraines Thyroid disease No past surgical history on file. Social History Socioeconomic History Marital status: Single Spouse name: Not on file Number of children: Not on file Years of education: Not on file Highest education level: Not on file Occupational History Not on file Tobacco Use Smoking status: Never Smokeless tobacco: Never Vaping Use Vaping status: Never Used Substance and Sexual Activity Alcohol use: No Drug use: No Sexual activity: Never Other Topics Concern Not on file Social History Narrative Not on file Social Determinants of Health Financial Resource Needs: Not on file Food Insecurity Needs: Not on file Transportation Needs: Not on file Physical Activity: Not on file Stress: Not on file Social Integration: Not on file Intimate Partner Violence: Not on file Housing Stability: Not on file BP 113/55 Pulse 102 Temp 98 ??F (36.7 ??C) (Tympanic) Resp 22 Ht 5' 9 (1.753 m) Wt 225 lb (102.1 kg) LMP 08/28/2023 SpO2 98% BMI 33.23 kg/m?? Review of Systems Constitutional: Positive for fatigue. Negative for activity change, appetite change, chills and fever. HENT: Positive for sore throat. Negative for congestion, drooling, rhinorrhea, trouble swallowing and voice change. Eyes: Negative. Respiratory: Positive for cough. Negative for shortness of breath, wheezing and stridor. Cardiovascular: Negative for chest pain. Gastrointestinal: Negative for abdominal pain, diarrhea and vomiting. Endocrine: Negative. Genitourinary: Negative. Musculoskeletal: Positive for arthralgias and myalgias. Skin: Negative for rash. Neurological: Positive for headaches. Hematological: Negative for adenopathy. Psychiatric/Behavioral: Negative for behavioral problems. Physical Exam Vitals and nursing note reviewed. Exam conducted with a clinical research specialist present. Constitutional: General: She is not in acute distress. Appearance: Normal appearance. She is not ill-appearing, toxic-appearing or diaphoretic. HENT: Head: Normocephalic and atraumatic. Right Ear: Tympanic membrane, ear canal and external ear normal. Left Ear: Tympanic membrane, ear canal and external ear normal. Nose: Nose normal. Mouth/Throat: Mouth: Mucous membranes are moist. Pharynx: Oropharynx is clear. Posterior oropharyngeal erythema present. No oropharyngeal exudate. Comments: No sign of peritonsillar or retropharyngeal abscess. Cardiovascular: Rate and Rhythm: Regular rhythm. Tachycardia present. Pulses: Normal pulses. Heart sounds: Normal heart sounds. No murmur heard. No friction rub. No gallop. Pulmonary: Effort: Pulmonary effort is normal. No respiratory distress. Breath sounds: Normal breath sounds. No stridor. No wheezing, rhonchi or rales. Abdominal: General: Abdomen is flat. Bowel sounds are normal. There is no distension. Palpations: Abdomen is soft. Tenderness: There is no abdominal tenderness. Musculoskeletal: General: No swelling. Normal range of motion. Cervical back: Normal range of motion and neck supple. Skin: General: Skin is warm and dry. Capillary Refill: Capillary refill takes less than 2 seconds. Findings: No rash. Neurological: General: No focal deficit present. Mental Status: She is alert and oriented to person, place, and time. Cranial Nerves: No cranial nerve deficit. Sensory: No sensory deficit. Motor: No weakness. Coordination: Coordination normal. Gait: Gait normal. Psychiatric: Mood and Affect: Mood normal. Behavior: Behavior normal. Thought Content: Thought content normal. Judgment: Judgment normal. Procedures No results found for this or any previous visit (from the past 24 hour(s)). Imaging Results None Medical Decision Making Patient is stable. Nontoxic appearance. No concerning vital signs. No respiratory distress noted. Abdomen benign. No concerning ENT bacterial findings. Was mucous membranes. Appropriate skin turgor. Offered chest x-ray, patient declines. Patient is past the therapeutic window for Paxlovid or Tamiflu treatment, thus swabs not obtained for these illnesses. She is already taking antibiotic and steroid. Will discharge home with Henrry Miranda and PCP follow- up. ED return precautions given. Problems Addressed: Viral URI: acute illness or injury Risk OTC drugs. Prescription drug management. Clinical Impression 1. Viral URI Disposition: Discharge Cosigned by Alon Starkey MD at 07/23/2024 5:46 AM CDT * Shannan Bray RN - 07/22/2024 7:51 PM CDT Pt to room 8 from triage. No changes, see triage note. Assessments as noted. Pt informed of wait times and plan of care, verbalizes understanding. Denies further needs at this time. Call light withinreach. * Marci Dill RN - 07/22/2024 7:13 PM CDT Patient presents to ED triage ambulatory with reports of cough and not feeling well since Thursday.Patient reports gong to urgent care and getting put on antibiotics and steroids without relief. VSSin triage active cough noted documented in this encounter Miscellaneous Notes * PatientPass Patient Instructions - Arnie Dos Santos, KATHY - 07/22/2024 8:00 PM CDT Images from the original note were not included. Patient Education Table of Contents Upper Respiratory Infection, Adult To view videos and all your education online visit, [email or web address] or scan this QR code with your smartphone. Access to this content will in one year. Upper Respiratory Infection, Adult An upper respiratory infection (URI) affects the nose, throat, and upper airways that lead to the lungs. The most common type of URI is often called the common cold. URIs usually get better on their own, without medical treatment. What are the causes? A URI is caused by a germ (virus). You may catch these germs by: Breathing in droplets from an infected person's cough or sneeze. Touching something that has the germ on it (is contaminated) and then touching your mouth, nose, oreyes. What increases the risk? You are more likely to get a URI if: You are very young or very old. You have close contact with others, such as at work, school, or a health care facility. You smoke. You have long-term (chronic) heart or lung disease. You have a weakened disease-fighting system (immune system). You have nasal allergies or asthma. You have a lot of stress. You have poor nutrition. What are the signs or symptoms? Runny or stuffy (congested) nose. Cough. Sneezing. Sore throat. Headache. Feeling tired (fatigue). Fever. Not wanting to eat as much as usual. Pain in your forehead, behind your eyes, and over your cheekbones (sinus pain). Muscle aches. Redness or irritation of the eyes. Pressure in the ears or face. How is this treated? URIs usually get better on their own within 7?10 days. Medicines cannot cure URIs, but your doctor may recommend certain medicines to help relieve symptoms, such as: Oyag-gyl-uoymidr cold medicines. Medicines to reduce coughing (cough suppressants). Coughing is a type of defense against infection that helps to clear the nose, throat, windpipe, and lungs (respiratory system). Take these medicinesonly as told by your doctor. Medicines to lower your fever. Follow these instructions at home: Activity Rest as needed. If you have a fever, stay home from work or school until your fever is gone, or until your doctor says you may return to work or school. ? You should stay home until you cannot spread the infection anymore (you are not contagious). ? Your doctor may have you wear a face mask so you have less risk of spreading the infection. Relieving symptoms Rinse your mouth often with salt water. To make salt water, dissolve ??1 tsp (3?6 g) of salt in 1 cup (237 mL) of warm water. Use a cool-mist humidifier to add moisture to the air. This can help you breathe more easily. Eating and drinking Drink enough fluid to keep your pee (urine) pale yellow. Eat soups and other clear broths. General instructions Take zmbf-wrn-odlnciy and prescription medicines only as told by your doctor. Do not smoke or use any products that contain nicotine or tobacco. If you need help quitting, ask your doctor. Avoid being where people are smoking (avoid secondhand smoke). Stay up to date on all your shots (immunizations), and get the flu shot every year. Keep all follow-up visits. How to prevent the spread of infection to others Wash your hands with soap and water for at least 20 seconds. If you cannot use soap and water, use hand hot wound spring production supervisor. Avoid touching your mouth, face, eyes, or nose. Cough or sneeze into a tissue or your sleeve or elbow. Do not cough or sneeze into your hand or into the air. Contact a doctor if: You are getting worse, not better. You have any of these: ? A fever or chills. ? Brown or red mucus in your nose. ? Yellow or brown fluid (discharge)coming from your nose. ? Pain in your face, especially when you bend forward. ? Swollen neck glands. ? Pain when you swallow. ? White areas in the back of your throat. Get help right away if: You have shortness of breath that gets worse. You have very bad or constant: ? Headache. ? Ear pain. ? Pain in your forehead, behind your eyes, and over your cheekbones (sinus pain). ? Chest pain. You have long-lasting (chronic) lung disease along with any of these: ? Making high-pitched whistling sounds when you breathe, most often when you breathe out (wheezing). ? Long-lasting cough (more than 14 days). ? Coughing up blood. ? A change in your usual mucus. You have a stiff neck. You have changes in your: ? Vision. ? Hearing. ? Thinking. ? Mood. These symptoms may be an emergency. Get help right away. Call 911. Do not wait to see if the symptoms will go away. Do not drive yourself to the hospital. Summary An upper respiratory infection (URI) is caused by a germ (virus). The most common type of URI is often called the common cold. URIs usually get better within 7?10 days. Take kyeh-yaj-enmytth and prescription medicines only as told by your doctor. This information is not intended to replace advice given to you by your health care provider. Make sure you discuss any questions you have with your health care provider. Document Released: 2009-03-09 Document Updated: 2022-04-23 Document Reviewed: 2022-04-23 Elsevier Patient Education ? 2023 [employer] documented in this encounter Plan of Treatment Upcoming Encounters Date Type Department Care Team (Late st Contact Info) Description 10/31/2024 4:00 PM INSTRUMENTATION AND CONTROLS DESIGNER Office Visit [facility] [address] [place] [address] Pelon Tanner APRN, DESCRIPTIVE CATALOG LIBRARIAN [address] [facility] [address] [address] documented as of this encounter Visit Diagnoses Diagnosis Viral URI- Primary Acute upper respiratory infections of unspecified site documented in this encounter Additional Health Concerns Assessment Noted Time PHQ-9 Depression Total Score: 0 02/02/20 20 11:19 AM CDT documented as of this encounter Care Teams Carburizing Furnace Operator Relationship Specialty Start Date End Date Roosevelt Layne MD [address] [address] PCP - General Family Medicine 09/03/15 documented as of this encounter
--- OUTSIDE RECORDS SUMMARY | 2024-10-09 16:33 | XMS_ITS | Encounter Summary ---
Author Organization [facility] Address [address] [place] [address] Care Team Providers Care Laborer Steel Handling Name Role Phone Roosevelt Layne MD Primary Care Provider Reason for Visit * Reason Comments Sore Throat 2 day Encounter Details Date Type Department Care Team (Late st Contact Info) Description 08/17/2017 7:40 AM DISABILITY LIAISON OFFICER Office Visit [facility] AT [address] [phone] Provider, Maynor Isaac [facility] Acute pharyngitis, unspecified etiology (Primary Dx) Social History Tobacco Use Types Packs/Day Years Used Date Smoking Tobacco: Never Assessed Sex and Gender Information Value Date Recorded Sex Assigned at Not on file Gender Identity Not on file Sexual Orientation Not on file documented as of this encounter Last Filed Vital Signs Vital Sign Reading Time Taken Comments Blood Pressure 126/78 08/17/2017 7:47 AM DISABILITY LIAISON OFFICER Pulse 97 08/17/2017 7:47 AM DISABILITY LIAISON OFFICER Temperature 37.3 ??C (99.2 ??F) 08/17/2017 7:47 AM CS T Respiratory Rate - - Oxygen Saturation 97% 08/17/2017 7:47 AM DISABILITY LIAISON OFFICER Inhaled Oxygen Concentration - - Weight 88.5 kg (195 lb) 08/17/2017 7:47 AM DISABILITY LIAISON OFFICER Height 175.3 cm (5' 9 ) 08/17/2017 7:47 AM DISABILITY LIAISON OFFICER Body Mass Index 28.8 08/17/2017 7:47 AM DISABILITY LIAISON OFFICER documented in this encounter Patient Instructions * Patient Instructions* Yvette Holly, MAPPING ENGINEER-YARD JACKER - 08/17/2017 8:05 AM DISABILITY LIAISON OFFICER Rapid strep negative, declines culture Warm salt water gargles or gargle with chloraseptic spray Increase fluid intake Tylenol or Motrin as needed Can use Claritin or Zyrtec as needed for nasal drainage If no improvement in 48-72 hours follow up with PCP Dr Layne or return to clinic Pharyngitis WHAT YOU NEED TO KNOW: Pharyngitis, or sore throat, is inflammation of the tissues and structures in your pharynx (throat). Pharyngitis is most often caused by bacteria. It may also be caused by a cold or flu virus. Other causes include smoking, allergies, or acid reflux. DISCHARGE INSTRUCTIONS: Call 911 for any of the following: ?? You have trouble breathing or swallowing because your throat is swollen or sore. Return to the emergency department if: ?? You are drooling because it hurts too much to swallow. ?? Your fever is higher than 102?F (39?C) or lasts longer than 3 days. ?? You are confused. ?? You taste blood in your throat. Contact your healthcare provider if: ?? Your throat pain gets worse. ?? You have a painful lump in your throat that does not go away after 5 days. ?? Your symptoms do not improve after 5 days. ?? You have questions or concerns about your condition or care. Medicines: Viral pharyngitis will go away on its own without treatment. Your sore throat should start to feel better in 3 to 5 days for both viral and bacterial infections. You may need any of the following: ?? Antibiotics treat a bacterial infection. ?? NSAIDs , such as ibuprofen, help [...] how often to take it. Follow directions. Acetaminophen can cause liver damage if not taken correctly. ?? Take your medicine as directed. Contact [...] of an emergency. Manage your symptoms: ?? Gargle salt water. Mix ?? teaspoon salt in an 8 ounce glass of warm water and gargle. This may help decrease swelling in your throat. ?? Drink liquids as directed. You may need to drink more liquids than usual. Liquids may help soothe your throat and prevent dehydration. Ask how much liquid to drink each day and which liquids are best for you. ?? Use a cool-steam humidifier to help moisten the air in your room and calm your cough. ?? Soothe your throat with cough drops, ice, soft foods, or popsicles. Prevent the spread of pharyngitis: Cover your mouth and nose when you cough or sneeze. Do not sharefood or drinks. Wash your hands often. Use soap and water. If soap and water are unavailable, use an alcohol based hand materials and processes manager. Follow up with your healthcare provider as directed: Write down your questions so you remember to ask them during your visits. ?? 2016 [employer]. Information is for End User's use only and may not be sold, redistributed or otherwise used for commercial purposes. All illustrations and images included in CareNotes?? are the copyrighted property of [employer] or [employer]. The above information is an medicaid biller only. It is not intended as medical advice for individual conditions or treatments. Talk to your doctor, nurse or pharmacist before following any medical regimen to see if it is safe and effective for you. BILITY LIAISON OFFICER documented in this encounter Progress Notes * Yvette Holly APRN-CNP - 08/17/2017 7:58 AM [facility] Chief Complaint Patient presents with ??? Sore Throat 2 day SUBJECTIVE: General The history is provided by the patient. This is a new problem. The current episode started 2 days ago. The problem occurs constantly. The problem has been gradually worsening. The pain is at a severity of 4/10. The pain is mild. Associated symptoms include headaches. Pertinent negatives include no shortness of breath. The symptoms are aggravated by swallowing. The symptoms are relieved by NSAIDs.Treatments tried: took Motrin yesterday only. The treatment provided mild relief. 27 y/o female presents with sore throat x 2 days Past Medical History: Diagnosis Date ??? Hypothyroidism No current outpatient prescriptions on file prior to visit. No current facility-administered medications on file prior to visit. No past surgical history on file. Social History Social History ??? Marital status: Single Spouse name: N/A ??? Number of children: N/A ??? Years of education: N/A Occupational History ??? Not on file. Social History Main Topics ??? Smoking status: Not on file ??? Smokeless tobacco: Not on file ??? Alcohol use Not on file ??? Drug use: Not on file ??? Sexual activity: Not on file Other Topics Concern ??? Not on file Social History Narrative ??? No narrative on file No family history on file. Current Outpatient Prescriptions Medication Sig Dispense Refill ??? levothyroxine (SYNTHROID) 50 MCG tablet Take 50 mcg by mouth daily before breakfast No current facility-administered medications for this visit. Allergies Allergen Reactions ??? Keflex [Cephalexin] GI upset REVIEW OF SYSTEMS: Review of Systems Constitutional: Positive for chills. Negative for fever. HENT: Positive for sore throat. Negative for congestion, ear discharge and ear pain. Swollen glands Respiratory: Negative for cough and shortness of breath. Gastrointestinal: Positive for nausea. Negative for diarrhea and vomiting. Neurological: Positive for headaches. Negative for dizziness. Sinus headache OBJECTIVE: General appearance: alert, well appearing, and in no distress. BP 126/78 (BP SITE: LEFT ARM, BP POSITION: SITTING, BP CUFF SIZE: Adult) Pulse 97 Temp 99.2 ??F (Oral) Ht 1.753 m (5' 9 ) Wt 88.5 kg (195 lb) SpO2 97% BMI 28.8 kg/m2 Physical Exam Constitutional: She is oriented to person, place, and time and well-developed, well-nourished, and in no distress. HENT: Head: Normocephalic and atraumatic. Bilateral TM's normal Bilateral turbinates mild erythema with clear drainage Mild erythema posterior pharynx Neck: Normal range of motion. Neck supple. Cardiovascular: Normal rate and regular rhythm. Pulmonary/Chest: Effort normal and breath sounds normal. Neurological: She is alert and oriented to person, place, and time. Vitals reviewed. ASSESSMENT: Office Visit on 08/17/17 STREP A SCREEN - POINT OF CARE (AMB) STL Result Value Ref Range Strep A Rapid Negative Negative Strep A INTERNAL CONTROL Present Lot Number [id number] Expiration Date 60211013 Encounter Diagnosis Name Primary? Acute pharyngitis, unspecified etiology Yes PLAN: Rapid strep negative, declines throat cultue Warm salt water gargles or gargle with chloraseptic spray Increase fluid intake Tylenol or Motrin as needed Can use Claritin or Zyrtec as needed for nasal drainage If no improvement in 48-72 hours follow up with PCP Dr Layne or return to clinic Orders Placed This Encounter ??? STREP A SCREEN - POINT OF CARE (AMB) STL BILITY LIAISON OFFICER documented in this encounter Plan of Treatment Not on file documented as of this encounter Procedures Procedure Name Priority Date/Time Associated Diagnosis Comments STREP A SCREEN - POINT OF CARE (AMB) STL Routine 08/17/2017 Acute pharyngitis, unspecified etiology documented in this encounter Results * STREP A SCREEN - POINT OF CARE (AMB) STL (08/17/2017) Strep A Rapid POCT Negative Negative Strep A Internal Control Present Lot # [id number] Expiration Date 60211013 Throat ENTIRE THROAT (SURFACE REGION OF NECK) / Unknown 08/17/2017 [facility] - POINT O F CARE ORDERABLES documented in this encounter Visit Diagnoses Diagnosis Acute pharyngitis, unspecified etiology- Primary documented in this encounter Care Teams Laborer Steel Handling Relationship Specialty Start Date End Date Roosevelt Layne MD PCP - General Family Medicine 08/17/17 documented as of this encounter
--- OUTSIDE RECORDS SUMMARY | 2024-10-09 16:33 | XMS_ITS | Encounter Summary ---
Author Organization [facility] Address [address] [place] [place] [address] Phone Care Team Providers Care Emergency Department Aide Name Role Phone Roosevelt Layne MD Primary Care Provider [phone] Encounter Details Date Type Department Care Team (Late st Contact Info) Description 07/28/2024 Telephone [facility] - Family Medicine [facility] [address] [place] [address] Roosevelt Layne MD [address] [address] Social History Tobacco Use Types Packs/Day Years [...] Telephone Encounter - Kate Arrieta MA - 08/02/2024 8:13 AM CDT Marci has an appt on 10/31/24. * Telephone Encounter - Kate Arrieta MA - 08/01/2024 1:17 PM CDT Lm for Marci to contact the office. * Telephone Encounter - Roosevelt Layne MD - 07/28/2024 7:33 PM CDT Schedule her to see Pelon Tanner NP in 2 months for follow-up appointment. Thanks! documented in this encounter Plan of Treatment Upcoming Encounters Date Type Department Care Team (Late st Contact Info) Description 10/31/2024 4:00 PM PRODUCT TEST SPECIALIST Office Visit [facility] - [facility] - [place] [address] [place] [address] Pelon Tanner APRN, [employer] [address] [address] documented as of this encounter Visit Diagnoses Not on filedocumented in this encounter Additional Health Concerns Assessment Noted Time PHQ-9 Depression Total Score: 0 02/02/20 20 11:19 AM CDT documented as of this encounter Care Teams Emergency Department Aide Relationship Specialty Start Date End Date Roosevelt Layne MD #[address] [address] PCP - General Family Medicine 09/03/15 documented as of this encounter
--- OUTSIDE RECORDS SUMMARY | 2024-10-09 16:33 | XMS_ITS | Encounter Summary ---
Author Organization [facility] Address [address] [place] [address] Care Team Providers Care Property Coordinator Name Role Phone Roosevelt Layne MD Primary Care Provider [phone] Reason for Visit * Reason Onset Date Comments Follow-up 08/09/2018 pt doing well. n o questions or concerns Encounter Details Date Type Department Care Team (Late st Contact Info) Description 08/09/2018 Telephone [facility] AT [address] [address] Popeye Otto, TREE FARMER-RETAIL SALES CONSULTANT [address] [place] [address] Follow-up (pt doing well. no questions or concerns) Social History Tobacco Use Types Packs/Day Years [...] on filedocumented in this encounter Care Teams Property Coordinator Relationship Specialty Start Date End Date Roosevelt Layne MD PCP - General Family Medicine 08/17/17 documented as of this encounter
--- OUTSIDE RECORDS SUMMARY | 2024-10-09 16:33 | XMS_ITS | Patient Health Summary ---
Author Organization [facility] Address [address] [facility] [place] [address] Care Team Providers Care Esthetician And Manager Medical Spa Name Role Phone Roosevelt Layne MD Primary Care Provider [phone] Note from [facility],non-owned Affiliates and Associated Physician Practices is amultiple site organization consisting of ambulatory clinics and hospital sitesin [place], [place], [place] and [place]. This disclosure is being madepursuant to the Care Everywhere program and may not contain all information available regarding this patient. Last updated 18.[facility] Allergies * Cephalexin(Other) * Sumatriptan(Other) Medications * Be aware that medications may not be up to date on this document. Alwaysverify current medications with the patient. * miha-yxtz-qwyybgsvqc-codeine (FIORICET WITH CODEINE) [id number] MG capsule (Started 01/25/2018) Take 1 capsule by mouth every 4 hours as needed * levothyroxine (EUTHYROX) 100 MCG tablet(Started 11/23/2020) Take 1 (one) tablet by mouth once daily 3 refills by 11/23/2021 Active Problems Problem Noted Date Diagnosed Date Hypothyroidism 09/10/2018 B12 deficiency 04/21/2017 Migraine without aura and wi th status migrainosus, not intractable 02/18/2017 Overweight (BMI 25.0-29.9) 02/18/2017 Vitamin D deficiency 11/07/2015 Chronic fatigue 11/02/2015 Migraine 09/03/2015 Immunizations * INFLUENZA VACCINE, TRIV. (AFLURIA, FLUZONE TRIVALENT; 6MO+) (IIV3)(Given 08/06/2019) * INFLUENZA(Given 07/22/2018) * TDAP (7yrs+)(Given 01/21/2008) Social History Tobacco Use Types Packs/Day Years [...] Comments Blood Pressure 116/66 10/28/2019 1:35 PM FOSTER CARE WORKER Pulse 97 10/28/2019 1:35 PM FOSTER CARE WORKER Temperature 36.7 ??C (98.1 ??F) 10/28/2019 1 :35 PM FOSTER CARE WORKER Respiratory Rate 18 10/28/2019 1:35 PM FOSTER CARE WORKER Oxygen Saturation 97% 10/28/2019 1:3 5 PM FOSTER CARE WORKER on room air Inhaled Oxygen Concentration - - Weight 96.8 kg (213 lb 6.4 oz) 10/28/19 20 1:35 PM FOSTER CARE WORKER Height 168.9 cm (5' 6.5 ) 11/23/2018 1: 43 PM FOSTER CARE WORKER Body Mass Index 33.93 11/23/2018 1:43 PM FOSTER CARE WORKER Procedures * TSH+FREE T4 PANEL(Performed 10/28/2019) Performed for Hypothyroidism, unspecified type * TSH+FREE T4 PANEL(Performed 03/18/2019) Performed for Hypothyroidism, unspecified type * THYROID PEROXIDASE ANTIBODY(Performed 09/10/2018) * TSH+FREE T4 PANEL(Performed 09/10/2018) Performed for Other specified hypothyroidism * STREP A SCREEN - POINT OF CARE (AMB) STL(Performed 08/07/2018) Performed for Upper respiratory tract infection, unspecified type * INFLUENZA A+B - POINT OF CARE (AMB)(Performed 08/07/2018) Performed for Upper respiratory tract infection, unspecified type * STREP A SCREEN - POINT OF CARE (AMB) STL(Performed 01/11/2018) Performed for Strep throat * INFLUENZA A+B - POINT OF CARE (AMB)(Performed 11/29/2017) Performed for Infectious gastroenteritis * STREP A SCREEN - POINT OF CARE (AMB) STL(Performed 08/17/2017) Performed for Acute pharyngitis, unspecified etiology Results * TSH+FREE T4 PANEL (10/28/2019 2:21 PM FOSTER CARE WORKER) Only the most recent of3 resultswithin the time period is included. TSH 1.23 mIU/L [facility] Comment: ?Reference Range ?> or = 20 Years ??0.40-4.50 ? Ranges ?First trimester ?0.26-2.66 ?Second trimester ?? 0.55-2.73 ?Third trimester ?0.43-2.91 T4 Free 1.5 0.8 - 1.8 ng/dL [facility] Comment: Test Performed at: [facility] [address] [place], [place] ??[address] MIKAYLA VILLA DO,MPH Blood BLOOD SPECIMEN / Unknown 10/28/2019 2:21 PM FOSTER CARE WORKER 10/28/2019 2:21 PM FOSTER CARE WORKER Shayne Hua MD LAB - CHEMISTRY ZEB ADAMSON Performing Organization Address [facility] Co de Phone Number [facility] [address] [place] [address] * THYROID PEROXIDASE ANTIBODY (09/10/2018 2:11 PM FOSTER CARE WORKER) Thyroid Peroxidase TPO Antibody 9 0 - 34 IU/mL [facility] INSURANCE BILL 09/10/2018 2:11 PM FOSTER CARE WORKER 09/10/2018 Narrative Resulting Agency Comment [facility] [address] ??[facility] [phone] Shayne Hua MD LAB - CHEMISTRY ZEB ADAMSON [facility] INSURANCE BILL [address] [place] [address] * STREP A SCREEN - POINT OF CARE (AMB) STL (08/07/2018 4:13 PM CDT) Only the most recent of3 resultswithin the time period is included. Strep A Rapid POCT Negative Negative Strep A Internal Control Present Lot # [id number] Expiration Date 12 04 2019 Throat ENTIRE THROAT (SURFACE REGION OF NECK) / Unknown 08/07/2018 4:13 PM CDT Hannah Sosa APRN-ADMINISTRATION MANAGER LAB - POINT OF CA RE ORDERABLES * INFLUENZA A+B - POINT OF CARE (AMB) (08/07/2018 4:13 PM CDT) Only the most recent of2 resultswithin the time period is included. Influenza A Antigen Rapid Negative Negative Influenza B Antigen Rapid Negative Negative Influenza Internal Control present NEGATIVE - POSITIVE Influenza Lot Number [id number] Influenza Expiration Date 11 13 2019 Other NASOPHARYNGEAL SWAB / Unknown 08/07/2018 4:13 PM CDT Hannah Sosa APRN-ADMINISTRATION MANAGER LAB - POINT OF CA RE ORDERABLES Care Teams Esthetician And Manager Medical Spa Relationship Specialty Start Date End Date Roosevelt Layne MD PCP - General Family Medicine 08/17/17
--- OUTSIDE RECORDS SUMMARY | 2024-10-09 16:33 | XMS_ITS | Encounter Summary ---
Author Organization [facility] Address [address] [place] [address] Phone Care Team Providers Care Guzzler Builder Name Role Phone Roosevelt Layne MD Primary Care Provider [phone] Encounter Details Date Type Department Care Team (Late st Contact Info) Description 11/24/2023 Telephone [facility] - Family Medicine [facility] [address] [place] [address] Roosevelt Layne MD [address] [address] Social History Tobacco Use Types Packs/Day Years [...] encounter Miscellaneous Notes * Telephone Encounter - Roosevelt Layne MD - 11/24/2023 3:24 PM DELIVERER MERCHANDISE DONE. VERER MERCHANDISE documented in this encounter Plan of Treatment Upcoming Encounters Date Type Department Care Team (Late st Contact Info) Description 10/31/2024 4:00 PM DELIVERER MERCHANDISE Office Visit [facility] - Family Medicine - [place] [address] [place] [address] Pelon Tanner APRN, WATER METER READER [address] [address] documented as of this encounter Visit Diagnoses Not on filedocumented in this encounter Additional Health Concerns Assessment Noted Time PHQ-9 Depression Total Score: 0 02/02/20 20 11:19 AM CDT documented as of this encounter Care Teams Guzzler Builder Relationship Specialty Start Date End Date Roosevelt Layne MD #[address] [address] PCP - General Family Medicine 09/03/15 documented as of this encounter
--- OUTSIDE RECORDS SUMMARY | 2024-10-09 16:33 | XMS_ITS | Encounter Summary ---
Author Organization [facility] Address [address] [place] [address] Care Team Providers Care Control Supervisor Name Role Phone Roosevelt Layne MD Primary Care Provider Reason for Visit * Reason Comments Sore Throat Encounter Details Date Type Department Care Team (Late st Contact Info) Description 01/11/2018 5:40 PM CDT Office Visit [facility] [address] [phone] Provider, Maynor Isaac [facility] Strep throat (Primary Dx) Social History Tobacco Use Types Packs/Day Years Used Date Smoking Tobacco: Never Smokeless Tobacco: Never Sex and Gender Information Value Date Recorded Sex Assigned at Not on file Gender Identity Not on file Sexual Orientation Not on file documented as of this encounter Last Filed Vital Signs Vital Sign Reading Time Taken Comments Blood Pressure 118/72 01/11/2018 5:21 PM CDT Pulse 85 01/11/2018 5:21 PM CDT Temperature 37.4 ??C (99.4 ??F) 01/11/2018 5:21 PM CD T Respiratory Rate - - Oxygen Saturation - - Inhaled Oxygen Concentration - - Weight 77.1 kg (170 lb) 01/11/2018 5:21 PM CDT Height 175.3 cm (5' 9 ) 01/11/2018 5:21 PM CDT Body Mass Index 25.1 01/11/2018 5:21 PM CDT documented in this encounter Patient Instructions * Patient Instructions* Dacia Gilbertyl, ANA LUISA-JEWELRY COATER - 01/11/2018 5:31 PM CDT Images from the original note were not included. Strep Throat ASSESSMENT NURSE: Strep throat is a throat infection caused by bacteria. It is easily spread from person to person. Common symptoms include the following: ?? Sore, red, and swollen throat ?? Fever and headache ?? Upset stomach, abdominal pain, or vomiting ?? White or yellow patches or blisters in the back of your throat ?? Tender, swollen lumps on the sides of your neck or jaw ?? Throat pain when you swallow Call 911 for any of the following: ?? You have trouble breathing. Seek care immediately if: ?? You have new symptoms like a bad headache, stiff neck, chest pain, or vomiting. ?? You are drooling because you cannot swallow your spit. Contact your healthcare provider if: ?? You have a fever. ?? You have a rash or ear pain. ?? You have green, yellow-brown, or bloody mucus when you cough or blow your nose. ?? You are unable to drink anything. ?? You have questions or concerns about your condition or care. Treatment for strep throat may include antibiotic medicine to treat your strep throat. You should feel better within 2 to 3 days after you start antibiotics. You may return to work or school 24 hoursafter you start antibiotics. Manage strep throat: ?? Use lozenges, ice, soft foods, or popsicles to soothe your throat. ?? Drink juice, milk shakes, or soup if your throat is too sore to eat solid food. Drinking liquidscan also help prevent dehydration. ?? Gargle with salt water. Mix ?? teaspoon salt in a glass of warm water and gargle. This may help reduce swelling in your throat. ?? Do not smoke. Nicotine and other chemicals in cigarettes and cigars can cause lung damage and make your symptoms worse. Ask your healthcare provider for information if you currently smoke and needhelp to quit. E-cigarettes or smokeless tobacco still contain nicotine. Talk to your healthcare provider before you use these products. Prevent the spread of strep throat: ?? Wash your hands often. Use soap and water. Wash your hands after you use the bathroom, change a child's diapers, or sneeze. Wash your hands before you prepare or eat food. ?? Do not share food or drinks. Replace your toothbrush after you have taken antibiotics for 24 hours. Follow up with your healthcare provider as directed: Write down your questions so you remember to ask them during your visits. ?? 2017 [employer] Information is for End User's use only and may not be sold, redistributed or otherwise used for commercial purposes. All illustrations and images included in CareNotes?? are the copyrighted property of [employer]. or [employer]. The above information is an political aide only. It is not intended as medical advice for individual conditions or treatments. Talk to your doctor, nurse or pharmacist before following any medical regimen to see if it is safe and effective for you. documented in this encounter Progress Notes * Carmen Gilbert APRN-CNP - 01/11/2018 5:26 PM CDT Images from the original note were not included. [facility] Chief Complaint Patient presents with ??? Sore Throat SUBJECTIVE: HPI Comments: 27 yo female presents with sore throat for 3 days. Low grade temp today. Past Medical History: Diagnosis Date ??? Hypothyroidism [...] Outpatient Prescriptions Medication Sig Dispense Refill ??? amoxicillin (AMOXIL) 875 MG tablet Take 1 tablet by mouth 2 times daily for 10 days 20 tablet 0 ??? levothyroxine (SYNTHROID) 50 MCG tablet Take 50 mcg by mouth daily before breakfast No current facility-administered medications for this visit. Allergies Allergen Reactions ??? Keflex [Cephalexin] GI upset REVIEW OF SYSTEMS: Review of Systems Constitutional: Positive for fever. HENT: Positive for sore throat. Respiratory: Negative. Cardiovascular: Negative. Gastrointestinal: Negative. OBJECTIVE: General appearance: alert, well appearing, and in no distress. BP 118/72 Pulse 85 Temp 99.4 ??F (37.4 ??C) (Oral) Ht 1.753 m (5' 9 ) Wt 77.1 kg (170 lb) BMI 25.1 kg/m2 Physical Exam Constitutional: She is oriented to person, place, and time and well-developed, well-nourished, and in no distress. HENT: Head: Normocephalic. Right Ear: External ear normal. Left Ear: External ear normal. Nose: Nose normal. Tonsils 2+, no euxdate, moderate erythema Neck: Normal range of motion. Neck supple. Cardiovascular: Normal rate and regular rhythm. Pulmonary/Chest: Effort normal and breath sounds normal. Lymphadenopathy: She has cervical adenopathy. Neurological: She is alert and oriented to person, place, and time. Skin: Skin is warm and dry. ASSESSMENT: Office Visit on 01/11/18 STREP A SCREEN - POINT OF CARE (AMB) STL Result Value Ref Range Strep A Rapid Positive (Abnormal) Negative Strep A INTERNAL CONTROL Present Lot Number [id number] Expiration Date 129675 Encounter Diagnosis Name Primary? Strep throat Yes PLAN: Orders Placed This Encounter ??? STREP A SCREEN - POINT OF CARE (AMB) STL ??? amoxicillin (AMOXIL) 875 MG tablet Sig: Take 1 tablet by mouth 2 times daily for 10 days Dispense: 20 tablet Refill: 0 STREP POSITIVE Strep Throat ASSESSMENT NURSE: Strep throat is a throat infection caused by bacteria. It is easily spread from person to person. Common symptoms include the following: ?? Sore, red, and swollen throat ?? Fever and headache ?? Upset stomach, abdominal pain, or vomiting ?? White or yellow patches or blisters in the back of your throat ?? Tender, swollen lumps on the sides of your neck or jaw ?? Throat pain when you swallow Call 911 for any of the following: ?? You have trouble breathing. Seek care immediately if: ?? You have new symptoms like a bad headache, stiff neck, chest pain, or vomiting. ?? You are drooling because you cannot swallow your spit. Contact your healthcare provider if: ?? You have a fever. ?? You have a rash or ear pain. ?? You have green, yellow-brown, or bloody mucus when you cough or blow your nose. ?? You are unable to drink anything. ?? You have questions or concerns about your condition or care. Treatment for strep throat may include antibiotic medicine to treat your strep throat. You should feel better within 2 to 3 days after you start antibiotics. You may return to work or school 24 hoursafter you start antibiotics. Manage strep throat: ?? Use lozenges, ice, soft foods, or popsicles to soothe your throat. ?? Drink juice, milk shakes, or soup if your throat is too sore to eat solid food. Drinking liquidscan also help prevent dehydration. ?? Gargle with salt water. Mix ?? teaspoon salt in a glass of warm water and gargle. This may help reduce swelling in your throat. ?? Do not smoke. Nicotine and other chemicals in cigarettes and cigars can cause lung damage and make your symptoms worse. Ask your healthcare provider for information if you currently smoke and needhelp to quit. E-cigarettes or smokeless tobacco still contain nicotine. Talk to your healthcare provider before you use these products. Prevent the spread of strep throat: ?? Wash your hands often. Use soap and water. Wash your hands after you use the bathroom, change a child's diapers, or sneeze. Wash your hands before you prepare or eat food. ?? Do not share food or drinks. Replace your toothbrush after you have taken antibiotics for 24 hours. Follow up with your healthcare provider as directed: Write down your questions so you remember to ask them during your visits. ?? 2017 [employer] Information is for End User's use only and may not be sold, redistributed or otherwise used for commercial purposes. All illustrations and images included in CareNotes?? are the copyrighted property of [employer], [employer]. or [employer]. The above information is an political aide only. It is not intended as medical advice for individual conditions or treatments. Talk to your doctor, nurse or pharmacist before following any medical regimen to see if it is safe and effective for you. documented in this encounter Plan of Treatment Not on file documented as of this encounter Procedures Procedure Name Priority Date/Time Associated Diagnosis Comments STREP A SCREEN - POINT OF CARE (AMB) STL Routine 01/11/2018 Strep throat documented in this encounter Results * (ABNORMAL) STREP A SCREEN - POINT OF CARE (AMB) STL (01/11/2018) Strep A Rapid POCT Positive(A) Negative Strep A Internal Control Present Lot # [id number] Expiration Date 156106 Throat ENTIRE THROAT (SURFACE REGION OF NECK) / Unknown 01/11/2018 [facility] - POINT OF CARE ORDERABLES documented in this encounter Visit Diagnoses Diagnosis Strep throat- Primary Streptococcal sore throat documented in this encounter Care Teams Control Supervisor Relationship Specialty Start Date End Date Roosevelt Layne MD PCP - General Family Medicine 08/17/17 documented as of this encounter
--- OUTSIDE RECORDS SUMMARY | 2024-10-09 16:33 | XMS_ITS | Encounter Summary ---
Author Organization [facility] Address [address] [place] [address] Phone Care Team Providers Care Registered Nurse First Assistant Name Role Phone Roosevelt Layne MD Primary Care Provider [phone] Reason for Visit * Reason Onset Date Comments Appointment 07/23/2024 Encounter Details Date Type Department Care Team (Late st Contact Info) Description 07/23/2024 Telephone [facility] - Family Medicine [facility] [address] [place] [address] Roosevelt Layne MD [address] [address] Appointment Social History Tobacco Use Types Packs/Day Years [...] encounter Miscellaneous Notes * Telephone Encounter - Coleen Rodriges - 07/26/2024 12:36 PM CDT Marci called in to cancel her appointment. Stated she is feeling better and does not need a appointment. * Telephone Encounter - Ambar Rutherford CMA - 07/25/2024 8:57 AM CDT Pt scheduled for 07/28/24 * Telephone Encounter - Roosevelt Layne MD - 07/23/2024 4:20 PM CDT Schedule her for telephone visit with me this coming week for ER follow-up. Thanks! documented in this encounter Plan of Treatment Upcoming Encounters Date Type Department Care Team (Late st Contact Info) Description 10/31/2024 4:00 PM MARKET DEVELOPMENT TRAINER Office Visit [facility] - Family Medicine [facility] [address] [facility] [place] [address] Pelon Tanner, HORIZONTAL RESAW OPERATOR, INTERNET SECURITY SPECIALIST [address] [facility] [address] [place] [address] documented as of this encounter Visit Diagnoses Not on filedocumented in this encounter Additional Health Concerns Assessment Noted Time PHQ-9 Depression Total Score: 0 02/02/20 20 11:19 AM CDT documented as of this encounter Care Teams Registered Nurse First Assistant Relationship Specialty Start Date End Date Roosevelt Layne MD [address] [facility] [address] [place] [address] PCP - General Family Medicine 09/03/15 documented as of this encounter
--- OUTSIDE RECORDS SUMMARY | 2024-10-09 16:33 | XMS_ITS | Encounter Summary ---
Author Organization [facility] Address [address] [place] [address] Phone Care Team Providers Care General Office Dispatcher Name Role Phone Roosevelt Layne MD Primary Care Provider [phone] Reason for Visit * Reason Onset Date Comments Appointment 11/24/2023 Encounter Details Date Type Department Care Team (Late st Contact Info) Description 11/24/2023 Telephone [facility] [address] [place] [address] Roosevelt Layne MD [address] [address] Appointment Social History Tobacco Use Types Packs/Day [...] encounter Miscellaneous Notes * Telephone Encounter - Kim Ramostl Ramos - 11/24/2023 1:19 PM CST Symptom: Headache Outcome: Schedule an appointment within 3 days Reason: Caller denied all higher acuity questions The caller accepted this outcome Caller denied: * Sudden worst headache of life now * Acting confused * Trouble walking * Getting worse * Stiff neck (is it painful to touch your chin to your chest) O SCRIBE OPERATOR documented in this encounter Plan of Treatment Upcoming Encounters Date Type Department Care Team (Late st Contact Info) Description 10/31/2024 4:00 PM LINE O SCRIBE OPERATOR Office Visit [facility] - Family Medicine [facility] [address] [place] [address] Pelon Tanner, CABLE TELEVISION TECHNICIAN, BROADCAST TRAFFIC COORDINATOR [address] [address] documented as of this encounter Visit Diagnoses Not on filedocumented in this encounter Additional Health Concerns Assessment Noted Time PHQ-9 Depression Total Score: 0 02/02/20 20 11:19 AM CDT documented as of this encounter Care Teams General Office Dispatcher Relationship Specialty Start Date End Date Roosevelt Layne MD [address] [place] [address] PCP - General Family Medicine 09/03/15 documented as of this encounter
--- OUTSIDE RECORDS SUMMARY | 2024-10-09 16:34 | XMS_ITS | Encounter Summary ---
Author Organization [facility] Address [address] [place] [address] Phone Care Team Providers Care Supervisor Component Assembler Name Role Phone Roosevelt Layne MD Primary Care Provider [phone] Reason for Visit * Reason Comments Preventive Care Encounter Details Date Type Department Care Team (Late st Contact Info) Description 09/04/2023 10:30 AM METAPHYSICIAN Office Visit [facility] - Family Medicine [facility] [address] [place] [address] Pelon Tanner APRN, PITCH FILLER [address] [address] Hypothyroidism, unspecified type (Primary Dx); Migraine with aura and without status migrainosus, not intractable; B12 deficiency; Vitamin D deficiency; Migraine without aura and with status migrainosus, not intractable; Viral bronchitis; Encounter for immunization Discharge Disposition: Discharged to home or Selfcare [...] Sign Reading Time Taken Comments Blood Pressure 128/70 09/04/2023 10:20 AM METAPHYSICIAN Pulse 65 09/04/2023 10:20 AM METAPHYSICIAN Temperature 36.9 ??C (98.5 ??F) 09/04/2023 10:[address] Respiratory Rate 16 09/04/2023 10:20 AM METAPHYSICIAN Oxygen Saturation 96% 09/04/2023 10:20 AM METAPHYSICIAN Inhaled Oxygen Concentration - - Weight 103.2 kg (227 lb 8 oz) 09/04/2023 10:20 A M METAPHYSICIAN Height 175.3 cm (5' 9 ) 09/04/2023 10:20 AM METAPHYSICIAN Body Mass Index 33.6 09/04/2023 10:20 AM METAPHYSICIAN documented in this encounter Functional Status * Question Answer Date of Assessment Author Little interest or pleasure in doing things Not at all 09/04/2023 10:19 AM METAPHYSICIAN Ambar Rutherford CMA Feeling down, depressed, or hopeless Not at all 09/04/2023 10:19 AM METAPHYSICIAN Ambar Rutherford CMA * Over the past 2 weeks, how often have you been bothered by any of the following problems? Question Answer Date of Assessment Author Patient Health Questionnaire -2 Score 0 09/04/2023 10:19 AM Ambar Miguel CMA documented as of this encounter Progress Notes * Ambar Rutherford CMA - 09/04/2023 10:30 AM CST Marci Cote, 32 y.o., female is here for Preventive Care Medication Refills: Patient reports/denies need for medication refills. Orders Pended: no Requested Prescriptions No prescriptions requested or ordered in this encounter Home Medications Medication Sig Start Date End Date Taking? Authorizing Provider albuterol (PROAIR HFA) 108 (90 Base) MCG/ACT Aerosol Solution take 2 Puffs by inhalation every 4 hours as needed for Wheezing or Cough. 12/08/18 Yes Gregory Castillo, DO ivvpapfkwf-hzihqfjcsqozh-ygqarsto-codeine (FIORICET WITH CODEINE) 71-885-91-30 MG Capsule TAKE 1 CAPSULE BY MOUTH EVERY 6 HOURS NEEDED FOR MIGRAINE HEADACHE Patient taking differently: Take 1 Capsule by mouth every 6 hours as needed. 09/04/21 Yes Roosevelt Layne MD FLUCELVAX QUADRIVALENT 0.5 ML Suspension Prefilled Syringe TO BE ADMINISTERED BY PHARMACIST FOR IMMUNIZATION Patient not taking: Reported on 09/04/2023 08/06/19 Jose Nunn MD fluticasone (FLONASE) 50 MCG/ACT Suspension 2 Sprays by Nasal route daily. Use in each nostril as directed. Patient not taking: Reported on 09/04/2023 04/11/22 Marilynn Brown PAC levothyroxine (SYNTHROID) 100 MCG Tablet Take 100 mcg by mouth daily. Yes Jsoe Nunn MD metFORMIN (GLUCOPHAGE-XR) 500 MG TABLET SR 24 HR Take 500 mg by mouth 2 times daily. Patient not taking: Reported on 09/04/2023 01/21/22 Jose Nunn MD methylPREDNISolone (MEDROL DOSPACK) 4 MG Tablet Therapy Pack Use as per instructions on package. Patient not taking: Reported on 09/04/2023 04/11/22 Marilynn Brown PAC spironolactone (ALDACTONE) 100 MG Tablet 04/07/22 Jose Nunn MD There are no discontinued medications. I have reviewed the home medication list with the patient and have reconciled discrepancies. The list is accurate to the best of my knowledge. Smoking Status: Social History Tobacco Use ??? Smoking status: Never ??? Smokeless tobacco: Never Vaping Use ??? Vaping Use: Never used Substance Use Topics ??? Alcohol use: No ??? Drug use: No Smoking Cessation Counseling Given: no Health Care Maintenance: Health Maintenance Due Topic Date Due ??? Hepatitis B Immunization (1 of 3 - 3-dose series) Never done ??? SARS-COV-2 Immunization (1) Never done ??? Td Immunization Every 10 Years (Adults With 1 Tdap) 01/20/2018 ??? Influenza Immunization (1) 06/05/2023 Orders Pended: no The following BPA's have been addressed with the patient today: Flu, Depression and Nutrition PHYSICIAN * Pelon Tanner APRN, PITCH FILLER - 09/04/2023 10:30 AM CST Subjective: Subjective CC: F/U hypothyroidism, migraines, B12 deficiency, and vitamin D deficiency; cough Marci Cote is a 32-year-old female who presents the office today follow-up for hypothyroidism, migraines, B12 deficiency, and vitamin-D deficiency. Her agriculture scientist left so she needs management of her hypothyroidism. Clinically euthyroid. On Synthroid 100 mcg for some time. Due f or labs. Migraines about 1 migraine days per month that is severe enough to warrant Fioricet. She does have an aura. Has history B12 and vitamin-D deficiency and due for labs. Up-to-date on Pap smear. Has had cough for the last month. No chest pain or fever. Rare shortness breath and wheezing. Feels like it is slightly improved. She is no other acute concerns. The history is provided by the patient and medical records. No world language teacher was used. Preventive Care Associated symptoms include coughing. Pertinent negatives include no abdominal pain, arthralgias, chest pain, chills, congestion, fatigue, fever, headaches, myalgias, nausea, numbness, rash, sore throat or vomiting. Review of Systems Constitutional: Negative for chills, fatigue and fever. HENT: Negative for congestion, ear discharge, ear pain, postnasal drip, sinus pressure, sinus pain,sore throat and trouble swallowing. Eyes: Negative for photophobia, pain and discharge. Respiratory: Positive for cough. Negative for chest tightness, shortness of breath and wheezing. Cardiovascular: Negative for chest pain and palpitations. Gastrointestinal: Negative for abdominal pain, constipation, diarrhea, nausea and vomiting. Genitourinary: Negative for dysuria, flank pain, frequency, hematuria and urgency. Musculoskeletal: Negative for arthralgias, back pain and myalgias. Skin: Negative for rash and wound. Neurological: Negative for dizziness, seizures, syncope, numbness and headaches. Psychiatric/Behavioral: Negative for suicidal ideas. Allergies Allergies Allergen Reactions ??? Cephalexin Unknown and Other (see Comments) GI upset GI upset GI upset ??? Sumatriptan Other (see Comments) Numbness on the left side. Numbness on the left side. Numbness on the left side. Numbness on the left side. Numbness on the left side. Numbness on the left side. Medications Current Outpatient Medications: ??? albuterol (PROAIR HFA) 108 (90 Base) MCG/ACT Aerosol Solution, take 2 Puffs by inhalation every4 hours as needed for Wheezing or Cough., Disp: 1 Inhaler, Rfl: 0 ??? osemmulqxl-ikvbkilvfomtg-yaiyojxk-codeine (FIORICET WITH CODEINE) 36-548-35-30 MG Capsule, Take1 Capsule by mouth every 6 hours as needed for Migraine., Disp: 30 Capsule, Rfl: 1 ??? Synthroid 100 MCG Tablet, Take 1 Tablet by mouth daily., Disp: 90 Tablet, Rfl: 3 Past Medical History Past Medical History Positives Diagnosis Date ??? Anemia, iron deficiency ??? B12 deficiency ??? Dyslipidemia ??? Migraines ??? Thyroid disease Past Surgical History No past surgical history on file. Family History Family History Problem Relation Age of Onset ??? No Known Problems Mother ??? No Known Problems Father ??? Cancer Maternal Grandmother Social History Social History Tobacco Use ??? Smoking status: Never ??? Smokeless tobacco: Never Vaping Use ??? Vaping Use: Never used Substance Use Topics ??? Alcohol use: No ??? Drug use: No Objective: Objective Physical Exam Vitals and nursing note reviewed. Constitutional: General: She is not in acute distress. Appearance: She is well-developed. She is obese. She is not diaphoretic. HENT: Head: Normocephalic and atraumatic. Right Ear: External ear normal. Left Ear: External ear normal. Nose: Nose normal. Eyes: General: Right eye: No discharge. Left eye: No discharge. Conjunctiva/sclera: Conjunctivae normal. Pupils: Pupils are equal, round, and reactive to light. Neck: Trachea: No tracheal deviation. Cardiovascular: Rate and Rhythm: Normal rate and regular rhythm. Heart sounds: Normal heart sounds. No murmur heard. No friction rub. No gallop. Pulmonary: Effort: Pulmonary effort is normal. No respiratory distress. Breath sounds: Normal breath sounds. Abdominal: General: Bowel sounds are normal. Palpations: Abdomen is soft. Tenderness: There is no abdominal tenderness. Musculoskeletal: General: No deformity. Normal range of motion. Cervical back: Normal range of motion and neck supple. Lymphadenopathy: Cervical: No cervical adenopathy. Skin: General: Skin is warm and dry. Coloration: Skin is not pale. Findings: No rash. Neurological: Mental Status: She is alert and oriented to person, place, and time. Psychiatric: Behavior: Behavior normal. Thought Content: Thought content normal. Judgment: Judgment normal. Vitals: 09/04/23 1020 BP: 128/70 Pulse: 65 Resp: 16 Temp: 98.5 ??F (36.9 ??C) TempSrc: Temporal SpO2: 96% Weight: 227 lb 8 oz (103.2 kg) Height: 5' 9 (1.753 m) Assessment and Plan See Diagnoses, Orders, Follow-up, and Instructions 1. Hypothyroidism, unspecified type - Synthroid 100 MCG Tablet; Take 1 Tablet by mouth daily. Dispense: 90 Tablet; Refill: 3 - CMP (COMPREHENSIVE METABOLIC PANEL); Future - LIPID PANEL; Future - COMPLETE BLOOD COUNT (CBC) WITH DIFF; Future - THYROID STIMULATING HORMONE (TSH); Future - THYROXINE (T4) FREE; Future 2. Migraine with aura and without status migrainosus, not intractable 3. B12 deficiency - VITAMIN B12; Future - FOLIC ACID (FOLATE); Future 4. Vitamin D deficiency - VITAMIN D, 25 HYDROXY TOTAL; Future 5. Migraine without aura and with status migrainosus, not intractable - nfvsxmkxts-ezyvmesputizt-snzgqmzu-codeine (FIORICET WITH CODEINE) 26-678-90-30 MG Capsule; Take 1Capsule by mouth every 6 hours as needed for Migraine. Dispense: 30 Capsule; Refill: 1 6. Viral bronchitis 7. Encounter for immunization - INFLUENZA VACCINE QUAD IM - INFLUENZA IMMUNIZATION QUESTIONS Hypothyroidism. Check labs. Refilled Synthroid. Migraine. Stable with p.r.n. Fioricet. Check labs for B12 and D deficiency. Viral bronchitis. Supportive care. Influenza vaccination today. Follow-up yearly. I discussed all new medications and potential side effects or risks associated with them. Patient is to contact our office with any concerns. Patient instructions and educational materials were given to the patient. Patient (or patient automotive leasing sales representative) demonstrates verbal understanding of instructions given. Patient should follow up with their PCP for general health maintenance needs. Patient should contact our office if their problems persist or call 911/go the to ER if issues become more persistent. If any referrals have been made, patient should contact our office with in 3-5 days if they have not heard anything from our referral team or the referring physician. Documentation for this visit on 09/04/23 was completed using a template. I have seen and examined the patient. Everything documented was personally performed at this visit with the necessary additions, deletions and changes made as appropriate. Note: Portions of this chart may have been completed with voice recognition software and may contain slight errors unrecognizable by the users. This would in no way affect the patient's care and is meant to improve length and quality of medical decision making and history taking. PHYSICIAN documented in this encounter Plan of Treatment Upcoming Encounters Date Type Department Care Team (Late st Contact Info) Description 10/31/2024 4:00 PM METAPHYSICIAN Office Visit [facility] - Family Medicine [facility] [address] [place] [address] Pelon Tanner APRN, DMITRIY [address] [address] documented as of this encounter Results * VITAMIN D, 25 HYDROXY TOTAL (09/04/2023 11:01 AM METAPHYSICIAN) Pathologist [facility] VITAMIN D, 25 HYDROX 56 ng/mL 09/04/2023 12:53 PM METAPHYSICIAN [facility] Blood Venipuncture / Unknown 09/04/2023 11:01 AM METAPHYSICIAN 09/04/2023 11:52 AM METAPHYSICIAN Narrative [facility] - 09/04/2023 12:53 PM METAPHYSICIAN Published reference ranges for Vitamin D vary depending on time and place and method of testing, and on patient's age, sex, ethnicity and levels of other measured analytes such as parathormone, calcium and phosphorus. ??The result should be evaluated in conjunction with clinical findings and suspicions. [employer] Clinical Practice Guidelines: Status Vitamin D levels (ng/mL) Deficient <=20 At risk of inadequacy 21-29 Sufficient 30-100 Centers of Disease Control and Prevention Guidelines: Status Vitamin D levels (ng/mL) Deficient <13 At risk of inadequacy 13-19 Sufficient 20-50 Possibly harmful >50 References: [employer], 2010 Dietary reference intakes for calcium and vitamin D. [place]: ??The National Academies Press. Alfonso M, Velia N, Olegario MARES, et al., Evaluation, treatment, and prevention of Vitamin D deficiency: an Endocrinology Clinical Practice Guideline. JCEM 2011 96: 7 0734-2944. Naren A, Russ C, Janice D, et al., Vitamin D Status: ??[place], 2000- 1005, [facility] data brief, no. 59, MD Brett: ??[facility] Statistics. 2011. Pelon Tanner APRN, DMITRIY CHEMISTRY ORDERA BLES Final Result Performing Organization Address City/[facility] Co de Phone Number [facility] [address] [place] [address] * FOLIC ACID (FOLATE) (09/04/2023 11:01 AM METAPHYSICIAN) FOLATE 15.0 7.0 - 31.4 ng/mL 09/04/2023 12:53 PM METAPHYSICIAN [facility] IS THE PATIENT REQUIRED TO BE FASTING? No 09/04/2023 12:53 PM METAPHYSICIAN [facility] Blood Venipuncture / Unknown 09/04/2023 11:01 AM METAPHYSICIAN 09/04/2023 11:52 AM METAPHYSICIAN Pelon Tanner APRN, DMITRIY CHEMISTRY ORDERA BLES Final Result Performing Organization Address [facility] Co de Phone Number [facility] [address] [place] [address] * (ABNORMAL) VITAMIN B12 (09/04/2023 11:01 AM METAPHYSICIAN) VITAMIN B12 1,371(H) 213 - 816 pg/mL 09/04/2023 12:53 PM METAPHYSICIAN [facility] Blood Venipuncture / Unknown 09/04/2023 11:01 AM METAPHYSICIAN 09/04/2023 11:52 AM METAPHYSICIAN Pelon Tanner APRN, CNP CHEMISTRY ORDERA BLES Final Result Performing Organization Address [facility] Co de Phone Number [facility] [address] [place] [address] * THYROXINE (T4) FREE (09/04/2023 11:01 AM METAPHYSICIAN) T4 FREE 1.0 0.7 - 1.9 ng/dL 09/04/2023 12:45 PM METAPHYSICIAN [facility] Blood Venipuncture / Unknown 09/04/2023 11:01 AM METAPHYSICIAN 09/04/2023 11:53 AM METAPHYSICIAN Pelon Tanner APRN, CNP CHEMISTRY ORDERA BLES Final Result Performing Organization Address [facility] Co de Phone Number [facility] [address] [place] [address] * THYROID STIMULATING HORMONE (TSH) (09/04/2023 11:01 AM METAPHYSICIAN) TSH 2.101 0.300 - 5.000 mIU/L 09/04/2023 12:45 PM METAPHYSICIAN [facility] Blood Venipuncture / Unknown 09/04/2023 11:01 AM METAPHYSICIAN 09/04/2023 11:53 AM METAPHYSICIAN Pelon Tanner APRN, CNP CHEMISTRY ORDERA BLES Final Result Performing Organization Address [facility] Co de Phone Number [facility] [address] [place] [address] * (ABNORMAL) LIPID PANEL (09/04/2023 11:01 AM METAPHYSICIAN) CHOLESTEROL 200(H) <200 mg/dL 09/04/2023 12:21 PM METAPHYSICIAN [facility] TRIGLYCERIDES 159(H) <150 mg/dL 09/04/2023 12:21 PM [facility] HDL CHOLESTEROL 40(L) >40 mg/dL 12:21 PM [facility] LDL 128 <130 mg/dL 09/04/2023 12:21 PM [facility] VLDL 32 10 - 50 mg/dL 09/04/2023 12:21 PM [facility] CHOL/HDL RATIO 5.0(H) 0.0 - 4.4 09/04/2023 12:21 PM [facility] NON-HDL CHOLESTEROL 160(H) <130 mg/dL 09/04/2023 12:21 PM [facility] IS THE PATIENT REQUIRED TO BE FASTING? No 09/04/2023 12:21 PM [facility] Blood Venipuncture / Unknown 09/04/2023 11:01 AM METAPHYSICIAN 09/04/2023 11:53 AM METAPHYSICIAN us Pelon Tanner DIGITAL MEDIA COORDINATOR, PITCH FILLER CHEMISTRY ORDERA BLES Final Result [facility] [address] [place] [address] * (ABNORMAL) CMP (COMPREHENSIVE METABOLIC PANEL) (09/04/2023 11:01 AM METAPHYSICIAN) SODIUM 141 136 - 145 mmol/L 09/04/2023 12:21 PM [facility] POTASSIUM 3.7 3.5 - 5.1 mmol/L 09/04/2023 12:21 PM [facility] CHLORIDE 107 98 - 107 mmol/L 09/04/2023 12:21 PM [facility] CO2, VENOUS 25 22 - 30 mmol/L 09/04/2023 12:21 PM [facility] ANION GAP 12.7 <18.0 mmol/L 09/04/2023 12:21 PM [facility] GLUCOSE 87 70 - 99 mg/dL 09/04/2023 12:21 PM [facility] BUN 8 5 - 18 mg/dL 09/04/2023 12:21 PM [facility] CREATININE, BLOOD 0.80 0.60 - 1.00 mg/dL 09/04/2023 12:21 PM [facility] BUN/CREATININE RATIO 10(L) 12 - 20 ratio 09/04/2023 12:21 PM [facility] TOTAL PROTEIN 7.3 6.3 - 8.2 g/dL 09/04/2023 12:21 PM [facility] ALBUMIN 4.3 3.5 - 5.0 g/dL 09/04/2023 12:21 PM [facility] A/G RATIO 1.4 1.0 - 2.2 09/04/2023 12:21 PM [facility] CALCIUM 9.2 8.7 - 10.5 mg/dL 09/04/2023 12:21 PM [facility] T BILI 0.5 0.2 - 1.2 mg/dL 09/04/2023 12:21 PM [facility] SGOT (AST) 23 5 - 34 U/L 09/04/2023 12:21 PM [facility] SGPT (ALT) 18 0 - 55 U/L 09/04/2023 12:21 PM [facility] ALKALINE PHOSPHATASE 84 40 - 150 U/L 09/04/2023 12:21 PM [facility] IS THE PATIENT REQUIRED TO BE FASTING? No 09/04/2023 12:21 PM [facility] GFR, ESTIMATED >60 >=60 09/04/2023 12:21 PM [facility] Comment: Creatinine Clearance is the preferred criteria for selecting drug dose adjustments in renally impaired patients. ??The GFR is provided as additional pertinent clinical information. GFR is reported in mL/min/1.73 sq m. Calculation based on the Chronic Kidney Disease Epidemiology Collaboration (CKD- EPI) equation refit without adjustment for race. GFR, EST. >60 >=60 023 12:21 PM METAPHYSICIAN [facility] GFR, EST. NONAFRICAN >60 >=60 09/04/2023 12:21 PM METAPHYSICIAN [facility] Blood Venipuncture / Unknown 09/04/2023 11:01 AM METAPHYSICIAN 09/04/2023 11:53 AM METAPHYSICIAN us Pelon Remberto Tanner DIGITAL MEDIA COORDINATOR, PITCH FILLER CHEMISTRY ORDERA BLES Final Result [facility] [address] [place] [address] documented in this encounter Visit Diagnoses Diagnosis Hypothyroidism, unspecified type- Primary Migraine with aura and without status migrainosus, not intractable Migraine with aura, without mention of intractable migraine without mention of status migrainosus B12 deficiency Other B-complex deficiencies Vitamin D deficiency Unspecified vitamin D deficiency Migraine without aura and with status migrainosus, not intractable Migraine without aura, without mention of intractable migraine with status migrainosus Viral bronchitis Acute bronchitis Encounter for immunization Need for other specified prophylactic vaccination against single bacterial disease documented in this encounter Additional Health Concerns Assessment Noted Time PHQ-9 Depression Total Score: 0 02/02/20 20 11:19 AM CDT documented as of this encounter Care Teams Supervisor Component Assembler Relationship Specialty Start Date End Date Roosevelt Layne MD [address] [address] PCP - General Family Medicine 09/03/15 documented as of this encounter
--- OUTSIDE RECORDS SUMMARY | 2024-10-09 16:34 | XMS_ITS | Encounter Summary ---
Author Organization [facility] Address [address] [place] [address] Phone Care Team Providers Care Catering Convention Services Manager Name Role Phone Roosevelt Layne MD Primary Care Provider [phone] Reason for Visit * Reason Comments Medication Refill Encounter Details Date Type Department Care Team (Late st Contact Info) Description 02/25/2020 Refill [facility] - [facility] Medicine [facility] [address] [place] [address] Roosevelt Layne MD [address] [address] Medication Refill Social History Tobacco Use Types [...] on file Sexual Orientation Not on file COVID-19 Exposure Response Date Recorded In the last month, have you been in contact with someone who was confirmed or suspected to have Coronavirus / COVID-19? No / Unsure 02/02/2020 11:06 AM CDT documented as of this encounter Miscellaneous Notes * Telephone Encounter - Carol Ardon RN - 02/28/2020 8:32 AM CDT Requested Prescriptions Pending Prescriptions Disp Refills ebfjlnfzdp-sesgrwqqotcjx-wvxypzsp-codeine (FIORICET WITH CODEINE) 57-262-65-30 MG Capsule [PharmacyMed Name: Rfasuqojqe-AFOB-Idnh-Cod 36-180-40-30 MG Oral Capsule] 28 Cap 0 Sig: TAKE 1 CAPSULE BY MOUTH EVERY 6 HOURS NEEDED FOR MIGRAINE HEADACHE Not Delegated - Analgesics: Opioid Agonist Combinations Failed - 02/28/2020 8:32 AM Failed - This refill cannot be delegated Passed - Valid encounter within last 6 months Past Office Visits Recent Outpatient Visits 3 weeks ago Spider bite wound, accidental or unintentional, initial encounter [facility] Roosevelt Layne MD 9 months ago Hypothyroidism, unspecified type [facility] Roosevelt Loyd MD 1 year ago Hypothyroidism, unspecified type [facility] Roosevelt Loyd MD 2 years ago Acute cystitis with hematuria [facility] Roosevelt Loyd MD 2 years ago Right foot injury, initial encounter [facility] PHYSICIAN [facility] Marilynn Brown PAC Upcoming Appointments Powered by [employer] - 02/28/2020 8:32 AM Information pending documented in this encounter Plan of Treatment Upcoming Encounters Date Type Department Care Team (Late st Contact Info) Description 10/31/2024 4:00 PM MANAGER TELEMARKETING Office Visit [facility] - Family Medicine [facility] [address] [place] [address] Pelon Tanner APRN, MEDICAL TECHNOLOGIST BLOOD BANK #[address] [address] documented as of this encounter Visit Diagnoses Not on filedocumented in this encounter Additional Health Concerns Infection Onset Date Last Indicated Resolved Time COVID - 19 09/19/2020 09/19/2020 10/09/2020 12:1 8 AM MANAGER TELEMARKETING COVID - 19 Confirmed 09/19/2020 09/19/2020 021 12:18 AM MANAGER TELEMARKETING COVID - 19 Confirmed 03/04/2022 03/04/2022 022 12:16 AM CDT Assessment Noted Time PHQ-9 Depression Total Score: 0 02/02/20 20 11:19 AM CDT documented as of this encounter Care Teams Catering Convention Services Manager Relationship Specialty Start Date End Date Roosevelt Layne MD #[address] [address] PCP - General Family Medicine 09/03/15 documented as of this encounter
--- OUTSIDE RECORDS SUMMARY | 2024-10-09 16:34 | XMS_ITS | Encounter Summary ---
Author Organization [facility] Address [address] [place] [address] Phone Care Team Providers Care Publication Distributor Name Role Phone Roosevelt Layne MD Primary Care Provider [phone] Encounter Details Date Type Department Care Team (Late st Contact Info) Description 09/19/2020 Telephone [facility] #2 [place] [address] Roosevelt Layne MD #[address] [address] Social History Tobacco Use Types Packs/Day Years [...] have Coronavirus / COVID-19? No / Unsure 09/19/2020 11:04 AM DAIRY HELPER documented as of this encounter Miscellaneous Notes * Telephone Encounter - Roosevelt Layne MD - 09/19/2020 9:15 PM DAIRY HELPER DONE. Y HELPER documented in this encounter Plan of Treatment Upcoming Encounters Date Type Department Care Team (Late st Contact Info) Description 10/31/2024 4:00 PM DAIRY HELPER Office Visit [facility] #2 [place] [address] Pelon Tanner, FEEDER CATCHER, EVAPORATOR OPERATOR #[address] [address] documented as of this encounter Visit Diagnoses Not on filedocumented in this encounter Additional Health Concerns Infection Onset Date Last Indicated Resolved Time COVID - 19 09/19/2020 09/19/2020 10/09/2020 12:1 8 AM DAIRY HELPER COVID - 19 Confirmed 09/19/2020 09/19/2020 021 12:18 AM DAIRY HELPER Assessment Noted Time PHQ-9 Depression Total Score: 0 02/02/20 20 11:19 AM CDT documented as of this encounter Care Teams Publication Distributor Relationship Specialty Start Date End Date Roosevelt Layne MD #[address] [address] PCP - General Family Medicine 09/03/15 documented as of this encounter
--- OUTSIDE RECORDS SUMMARY | 2024-10-09 16:34 | XMS_ITS | Encounter Summary ---
Author Organization [facility] Address [address] [place] [address] Phone Care Team Providers Care Top Loader Name Role Phone Roosevelt Layne MD Primary Care Provider [phone] Reason for Visit * Reason Comments Medication Refill Encounter Details Date Type Department Care Team (Late st Contact Info) Description 09/03/2021 Refill [facility] #2 [place] [address] Roosevelt Layne MD #[address] [address] Medication Refill Social History Tobacco Use Types [...] Telephone Encounter - Roosevelt Layne MD - 09/09/2021 9:38 AM CARD ROOM MANAGER Thanks for scheduling her! ROOM MANAGER * Telephone Encounter - Mary Alvarado RN - 09/09/2021 9:33 AM CST Scheduled 10/30/21 - pt states she will not need a refill prior to her appointment. She did not wantto see ARTIFICIAL BREEDING RANCH SUPERVISOR. ROOM MANAGER * Telephone Encounter - Roosevelt Layne MD - 09/04/2021 10:45 PM CARD ROOM MANAGER Let her know this is the last script until she is seen. Schedule her to see me or Pelon within 30 days. Thanks! ROOM MANAGER * Telephone Encounter - Keesha Stinson RMA - 09/04/2021 10:25 AM CARD ROOM MANAGER AIMhart message sent ROOM MANAGER * Telephone Encounter - Mary Alvarado RN - 09/04/2021 9:10 AM CST Patient needs an appointment with PCP/ARTIFICIAL BREEDING RANCH SUPERVISOR ROOM MANAGER * Telephone Encounter - Mary Alvarado RN - 09/04/2021 9:10 AM CST Medication failed the protocol, provider to review and approve the medication order if appropriate. Requested Prescriptions Pending Prescriptions Disp Refills bjffpbsrde-qdhysieheckvy-gqlwvuqq-codeine (FIORICET WITH CODEINE) 48-295-66-30 MG Capsule [PharmacyMed Name: Zrojvykwrl-GNGR-Otcr-Cod 22-254-42-30 MG Oral Capsule] 28 Capsule 0 Sig: TAKE 1 CAPSULE BY MOUTH EVERY 6 HOURS NEEDED FOR MIGRAINE HEADACHE Not Delegated - Butalbital Protocol Failed - 09/03/2021 5:40 PM Failed - This refill cannot be delegated; check utilization Failed - No documented Systolic BP > 200 within past 3 months Passed - Visit with relevant provider in past 24 months or upcoming 90 days Recent Visits Date Type Provider Dept 09/19/20 Nasima Brady PAC [facility] 02/02/20 Office Visit Roosevelt Layne MD [facility] Showing recent visits within past 730 days and meeting all other requirements Future Appointments No visits were found meeting these conditions. Showing future appointments within next 90 days and meeting all other requirements Passed - Number of active Serotonergic medications less than 3 healthfinch Not Delegated - Analgesics: Opioid Agonist Combinations Failed - 09/03/2021 5:40 PM Failed - Valid encounter within last 6 months Past Office Visits Recent Outpatient Visits 11 months ago Upper respiratory tract infection, unspecified type [facility] - Nasima Tiwari PAC 1 year ago Spider bite wound, accidental or unintentional, initial encounter [facility] - Roosevelt Callahan MD 2 years ago Hypothyroidism, unspecified type [facility] Roosevelt Callahan MD 2 years ago Hypothyroidism, unspecified type [facility] - Roosevelt Callahan MD 4 years ago Acute cystitis with hematuria [facility] Roosevelt Callahan MD Upcoming Appointments PHOTOGRAPHIC SUPERVISOR - Recent and Past Visits Recent Visits Date Type Provider Dept 09/19/20 Telemedicine Nasima Casillas PAC [facility] Showing recent visits within past 460 days with a meds authorizing provider and meeting all other requirements Future Appointments No visits were found meeting these conditions. Showing future appointments within next 90 days with a meds authorizing provider and meeting all other requirements Failed - This refill cannot be delegated ROOM MANAGER documented in this encounter Plan of Treatment Upcoming Encounters Date Type Department Care Team (Late st Contact Info) Description 10/31/2024 4:00 PM CARD ROOM MANAGER Office Visit [facility] [place] [address] [place] [address] Pelon Tanner, ANA LUISA, DIRECTOR SUMMER SESSIONS #2 [facility] [address] [place] [address] documented as of this encounter Visit Diagnoses Diagnosis Migraine without aura and with status migrainosus, not intractable- Primary Migraine without aura, without mention of intractable migraine with status migrainosus documented in this encounter Additional Health Concerns Infection Onset Date Last Indicated Resolved Time COVID - 19 Confirmed 03/04/2022 03/04/2022 022 12:16 AM CDT Assessment Noted Time PHQ-9 Depression Total Score: 0 02/02/20 20 11:19 AM CDT documented as of this encounter Care Teams Top Loader Relationship Specialty Start Date End Date Roosevelt Layne MD #[address] [address] PCP - General Family Medicine 09/03/15 documented as of this encounter
--- OUTSIDE RECORDS SUMMARY | 2024-10-09 16:34 | XMS_ITS | Encounter Summary ---
Author Organization [facility] [employer] [facility] Care Team Providers Care Densitometer Reader Name Role Phone Roosevelt Layne MD Primary Care Provider [phone] Encounter Details Date Type Department Care Team (Latest Contact Info) Description 04/11/2022 Travel Social History Tobacco Use Types Packs/Day [...] Exposure Response Date Recorded In the last 10 days, have yo u been in contact with someone who was confirmed or suspected to have Coronavirus/COVID-19? No / Unsure 04/11/2022 10:56 AM CDT documented as of this encounter Plan of Treatment Upcoming Encounters Date Type Department Care Team (Late st Contact Info) Description 10/31/2024 4:00 PM ACCOUNT DEVELOPMENT REPRESENTATIVE Office Visit [facility] - Family Medicine - [place] [address] [place] [phone] Pelon Tanner, SENIOR DATA INTEGRATION DEVELOPER, HOSPITAL CORPSMAN #[address] [address] documented as of this encounter Visit Diagnoses Not on filedocumented in this encounter Additional Health Concerns Assessment Noted Time PHQ-9 Depression Total Score: 0 02/02/20 20 11:19 AM CDT documented as of this encounter Care Teams Densitometer Reader Relationship Specialty Start Date End Date Roosevelt Layne MD #2 [place] [id number] PCP - General Family Medicine 09/03/15 documented as of this encounter
--- OUTSIDE RECORDS SUMMARY | 2024-10-09 16:34 | XMS_ITS | Encounter Summary ---
Author Organization [facility] Address [address] [facility] [place] [address] Phone Care Team Providers Care Director Of Radio Services Name Role Phone Roosevelt Layne MD Primary Care Provider [phone] Reason for Visit * Reason Onset Date Comments Advice Only 03/04/2022 Encounter Details Date Type Department Care Team (Late st Contact Info) Description 03/04/2022 Telephone [facility] [address] [place] [address] Roosevelt Layne MD #[address] [address] Advice Only Social History Tobacco Use Types Packs/Day Years [...] suspected to have Coronavirus/COVID-19? No / Unsure 03/04/2022 8:29 AM CDT documented as of this encounter Miscellaneous Notes * Telephone Encounter - Myranda Cox, RN - 03/04/2022 8:27 AM CDT Advise Only Patient reports + covid via home test 03/03 onset symptom 02/28 CDC guidelines provided Patient verbalized understanding, and agreeable to recommendations documented in this encounter Plan of Treatment Upcoming Encounters Date Type Department Care Team (Late st Contact Info) Description 10/31/2024 4:00 PM COMMERCIAL TIRE SERVICE TECHNICIAN Office Visit [facility] - [place] #2 [place] [address] Pelon Tanner APRN, FOOD SAFETY COORDINATOR #[address] [address] documented as of this encounter Visit Diagnoses Not on filedocumented in this encounter Additional Health Concerns Infection Onset Date Last Indicated Resolved Time COVID - 19 Confirmed 03/04/2022 03/04/2022 022 12:16 AM CDT Assessment Noted Time PHQ-9 Depression Total Score: 0 02/02/20 20 11:19 AM CDT documented as of this encounter Care Teams Director Of Radio Services Relationship Specialty Start Date End Date Roosevelt Layne MD #[address] [address] PCP - General Family Medicine 09/03/15 documented as of this encounter
--- OUTSIDE RECORDS SUMMARY | 2024-10-09 16:34 | XMS_ITS | Encounter Summary ---
Author Organization [facility] Address [address] [place] [address] Care Team Providers Care Slubber Hand Name Role Phone Roosevelt Layne MD Primary Care Provider [phone] Encounter Details Date Type Department Care Team (Late st Contact Info) Description 11/23/2021 1:00 PM RELAY REPAIRER Rapid Evaluation [facility] Testing [address] [address] Social History Tobacco Use Types Packs/Day Years [...] Encounters Date Type Department Care Team (Late Contact Info) Description 10/31/2024 4:00 PM RELAY REPAIRER Office Visit [facility] - [place] #2 [place] [phone] Pelon Tanner, WASHER OFF, WOOD SCRAP HANDLER #[address] [address] documented as of this encounter Visit Diagnoses Not on filedocumented in this encounter Additional Health Concerns Assessment Noted Time PHQ-9 Depression Total Score: 0 02/02/20 20 11:19 AM CDT documented as of this encounter Care Teams Slubber Hand Relationship Specialty Start Date End Date Roosevelt Layne MD #2 [place] [id number] PCP - General Family Medicine 09/03/15 documented as of this encounter
--- OUTSIDE RECORDS SUMMARY | 2024-10-09 16:34 | XMS_ITS | Encounter Summary ---
Author Organization [facility] Address [address] [place] [address] Phone Care Team Providers Care Interpreter Deaf Name Role Phone Roosevelt Layne MD Primary Care Provider [phone] Encounter Details Date Type Department Care Team (Late st Contact Info) Description 10/17/2021 Telephone [facility] - Family Medicine [facility] #2 [place] [address] Roosevelt Layne MD #[address] [address] Social History Tobacco Use Types Packs/Day Years [...] Telephone Encounter - Roosevelt Layne MD - 10/17/2021 2:52 PM DIRECTOR OF ANALYTICAL DEVELOPMENT Schedule her to see me or Pelon. She is long overdue. Thanks! CTOR OF ANALYTICAL DEVELOPMENT documented in this encounter Plan of Treatment Upcoming Encounters Date Type Department Care Team (Late st Contact Info) Description 10/31/2024 4:00 PM DIRECTOR OF ANALYTICAL DEVELOPMENT Office Visit [facility] - Family Medicine [facility] #2 [place] [address] Pelon Tanner APRN, PROFESSOR OF HISTORY #[address] [address] documented as of this encounter Visit Diagnoses Not on filedocumented in this encounter Additional Health Concerns Assessment Noted Time PHQ-9 Depression Total Score: 0 02/02/20 20 11:19 AM CDT documented as of this encounter Care Teams Interpreter Deaf Relationship Specialty Start Date End Date Roosevelt Layne MD #[address] [address] PCP - General Family Medicine 09/03/15 documented as of this encounter
--- OUTSIDE RECORDS SUMMARY | 2024-10-09 16:34 | XMS_ITS | Encounter Summary ---
Author Organization [facility] [employer] Care Team Providers Care Marble Finisher Name Role Phone Roosevelt Layne MD Primary Care Provider [phone] Encounter Details Date Type Department Care Team (Latest Contact Info) Description 09/19/2020 Travel Social History Tobacco Use Types Packs/Day [...] COVID-19? No / Unsure 09/19/2020 11:04 AM WILDLAND FIRE OPERATIONS SPECIALIST documented as of this encounter Plan of Treatment Upcoming Encounters Date Type Department Care Team (Late st Contact Info) Description 10/31/2024 4:00 PM WILDLAND FIRE OPERATIONS SPECIALIST Office Visit [facility] - Family Medicine - [place] [address] [place] [address] Pelon Tanner APRN, BOAT CARPENTER [address] [address] documented as of this encounter Visit Diagnoses Not on filedocumented in this encounter Additional Health Concerns Infection Onset Date Last Indicated Resolved Time COVID - 19 09/19/2020 09/19/2020 10/09/2020 12:1 8 AM WILDLAND FIRE OPERATIONS SPECIALIST COVID - 19 Confirmed 09/19/2020 09/19/2020 021 12:18 AM WILDLAND FIRE OPERATIONS SPECIALIST Assessment Noted Time PHQ-9 Depression Total Score: 0 02/02/20 20 11:19 AM CDT documented as of this encounter Care Teams Marble Finisher Relationship Specialty Start Date End Date Roosevelt Layne MD #[address] [address] PCP - General Family Medicine 09/03/15 documented as of this encounter
--- OUTSIDE RECORDS SUMMARY | 2024-10-09 16:34 | XMS_ITS | Encounter Summary ---
Author Organization [facility] Address [address] [place] [address] Phone Care Team Providers Care Clerk General Name Role Phone Roosevelt Layne MD Primary Care Provider [phone] Reason for Referral * Consult, Test & Initiate Treatment (Less Than 3 Days) - Closed Specialty Diagnoses / Procedures Referred By Marck giron Referred To Contact General Surgery Diagnoses Spider bite wound, accidental or unintentional, initial encounter Lesion of skin of breast Roosevelt Layne MD #2 [facility] [address] [place] [address] Phone: tel: fax: [facility] - General Surgery [facility] #2 [facility] [address] [place] [address] Phone: tel: fax: Referral ID Status Reason Start Date Expiration Date Visits Re quested Visits Authorized [id number] Closed 02/02/2020 1 1 Scheduling Instructions Marci is being referred for Dr. Nunn for spider bite on breasts. See below for Marci's current medications, allergies and problem list. Please contact patient for scheduling questions or concerns. CURRENT MEDS: Current Outpatient Medications: albuterol (PROAIR HFA) 108 (90 Base) MCG/ACT Aerosol Solution, take 2 Puffs by inhalation every 4 hours as needed for Wheezing or Cough., Disp: 1 Inhaler, Rfl: 0 ndqwjhhtaf-rfhdnywbcsxrm-pugabuzg-codeine (FIORICET WITH CODEINE) 75-735-68-30 MG Capsule, Take 1 Cap by mouth every 6 hours as needed for Migraine., Disp: 60 Cap, Rfl: 0 FLUCELVAX QUADRIVALENT 0.5 ML Suspension Prefilled Syringe, TO BE ADMINISTERED BY PHARMACIST FOR IMMUNIZATION, Disp: , Rfl: 0 levothyroxine (SYNTHROID) 100 MCG Tablet, Take 100 mcg by mouth daily., Disp: , Rfl: No current facility-administered medications for this visit. ALLERGIES: -- Cephalexin -- Unknown and Other (see Comments) -- GI upset GI upset GI upset -- Sumatriptan -- Other (see Comments) -- Numbness on the left side. Numbness on the left side. Numbness on the left side. Numbness on the left side. Numbness on the left side. Numbness on the left side. PROBLEM LIST: Patient Active Problem List: Migraine Chronic fatigue Vitamin D deficiency Hypothyroidism Migraine without aura and with status migrainosus, not intractable Overweight (BMI 25.0-29.9) B12 deficiency Obesity (BMI 30-39.9) Skin lesion Freckles Reason for Visit * Reason Comments Insect Bite spider bite under ri ght breast Encounter Details Date Type Department Care Team (Late st Contact Info) Description 02/02/2020 11:00 AM CDT Office Visit [facility] - Family [facility] #2 [place] [address] Roosevelt Layne MD #[address] [address] Spider bite wound, accidental or unintentional, initial encounter (Primary Dx); Lesion of skin of breast Discharge Disposition: Discharged to home or Selfcare [...] AM CDT documented as of this encounter Last Filed Vital Signs Vital Sign Reading Time Taken Comments Blood Pressure 112/80 02/02/2020 11:21 AM CDT Pulse 70 02/02/2020 11:21 AM CDT Temperature 36 ??C (96.8 ??F) 02/02/2020 11:21 AM CDT Respiratory Rate 20 02/02/2020 11:21 AM CDT Oxygen Saturation 98% 02/02/2020 11:21 AM CDT Inhaled Oxygen Concentration - - Weight 97.1 kg (214 lb) 02/02/2020 11:21 AM CDT Height 175.3 cm (5' 9 ) 02/02/2020 11:21 AM CDT Body Mass Index 31.6 02/02/2020 11:21 AM CDT documented in this encounter Patient Instructions * Patient Instructions* Roosevelt Layne MD - 02/02/2020 11:00 AM CDT 1. See Dr. Nunn / surgeon to evaluate your breast soon. 2. Fast 10 hours for labs. documented in this encounter Progress Notes * Karen Novak LPN - 02/02/2020 11:00 AM CDT Marci Cote, 29 y.o., female is here for Insect Bite (spider bite under right breast) Medication Refills: Patient reports/denies need for medication refills. Orders Pended: no Requested Prescriptions No prescriptions requested or ordered in this encounter Home Medications Medication Sig Start Date End Date Taking? Authorizing Provider albuterol (PROAIR HFA) 108 (90 Base) MCG/ACT Aerosol Solution take 2 Puffs by inhalation every 4 hours as needed for Wheezing or Cough. 12/08/18 Gregory Castillo, DO lpquznjwoh-edhbssefiftsi-jvpaslfe-codeine (FIORICET WITH CODEINE) 87-197-07-30 MG Capsule Take 1 Cap by mouth every 6 hours as needed for Migraine. 08/02/19 Roosevelt Layne MD FLUCELVAX QUADRIVALENT 0.5 ML Suspension Prefilled Syringe TO BE ADMINISTERED BY PHARMACIST FOR IMMUNIZATION 08/06/19 Provider, MD Jose levothyroxine (SYNTHROID) 100 MCG Tablet Take 100 mcg by mouth daily. Provider, MD Jose There are no discontinued medications. I have reviewed the home medication list with the patient and have reconciled discrepancies. The list is accurate to the best of my knowledge. Smoking Status: Social History Tobacco Use ??? Smoking status: Never Smoker ??? Smokeless tobacco: Never Used Substance Use Topics ??? Alcohol use: No ??? Drug use: No Smoking Cessation Counseling Given: no Health Care Maintenance: Health Maintenance Due Topic Date Due ??? Pap Smear 2009 ??? Td Immunization Every 10 Years (Adults With 1 Tdap) 01/20/2018 Orders Pended: no The following BPA's have been addressed with the patient today: BMI, Pneumonia, PAP and Depression Marci Cote is a 29 y.o. female with current BMI: There is no height or weight on file to calculate BMI. Interventions discussed including: encourage daily physical activity and well- balanced diet. * Karen Novak LPN - 02/02/2020 11:00 AM CDT Marci Cote, 29 y.o., female is here for Insect Bite (spider bite under right breast) Medication Refills: Patient reports/denies need for medication refills. Orders Pended: no Requested Prescriptions No prescriptions requested or ordered in this encounter Home Medications Medication Sig Start Date End Date Taking? Authorizing Provider albuterol (PROAIR HFA) 108 (90 Base) MCG/ACT Aerosol Solution take 2 Puffs by inhalation every 4 hours as needed for Wheezing or Cough. 12/08/18 Gregory Castillo, DO gemymothbe-uvduqzzjlnuhn-amxkdklq-codeine (FIORICET WITH CODEINE) 65-571-15-30 MG Capsule Take 1 Cap by mouth every 6 hours as needed for Migraine. 08/02/19 Yes Roosevelt Layne MD FLUCELVAX QUADRIVALENT 0.5 ML Suspension Prefilled Syringe TO BE ADMINISTERED BY PHARMACIST FOR IMMUNIZATION 08/06/19 ProviderJose MD levothyroxine (SYNTHROID) 100 MCG Tablet Take 100 mcg by mouth daily. Yes Provider, MD Jose There are no discontinued medications. I have reviewed the home medication list with the patient and have reconciled discrepancies. The list is accurate to the best of my knowledge. Smoking Status: Social History Tobacco Use ??? Smoking status: Never Smoker ??? Smokeless tobacco: Never Used Substance Use Topics ??? Alcohol use: No ??? Drug use: No Smoking Cessation Counseling Given: no Health Care Maintenance: Health Maintenance Due Topic Date Due ??? Pap Smear 2009 ??? Td Immunization Every 10 Years (Adults With 1 Tdap) 01/20/2018 Orders Pended: no The following BPA's have been addressed with the patient today: BMI, PAP and Depression * Roosevelt Layne MD - 02/02/2020 11:00 AM CDT CHIEF COMPLAINT: Spider bite. HISTORY OF PRESENT ILLNESS: This is a 29-year-old female who is here today for acute visit. She is complaining of a spider bite on possibly both breasts, but she notices a large lesion on the skin of her right breast, mainly in the left upper quadrant pain. She denies any discharge or fever. Spider bite happen last . There has been increased redness and swelling and warmth to the touch. She says that the spider was blonde in color and fell out of her bra. I have reviewed all the systems. They are negative except as mentioned in HPI. OBJECTIVE: Vital Signs: Blood pressure 112/80, pulse 70, temperature 96.8, weight 214. Breast/skin: She does have an irregularly shaped erythematous breast lesion in the left upper quadrant region. Areaola and nipple are normally the current color. I do not see any discharge. There is possibly small bite wound which seems to have a small scab there. Skin was a little warm to touch. There is no pain to palpation. ASSESSMENT/PLAN: 1. Right breast swelling/redness. I will have her see general surgeon/Dr. Kwok. I will put her on doxycycline for now. 2. This patient is to follow up with me in 3 months. I told her to get her fasting labs done. IJN: [id number] documented in this encounter Plan of Treatment Upcoming Encounters Date Type Department Care Team (Late st Contact Info) Description 10/31/2024 4:00 PM TORCH STRAIGHTENER Office Visit [facility] - Family [facility] #2 [place] [address] Pelon Tanner, FORESTRY FIRE AID, CLASS A LINEMAN #[address] [address] Scheduled Referrals Name Type Priority Associated Diagnoses Order Schedule GEN SURGICAL REFERRAL Outpatient Referral Less Than 3 Days Spider bite wound, accidental or unintentional, initial encounter Lesion of skin of breast Expected: 02/02/2020 (Approximate), Expires: 02/01/2021 documented as of this encounter Visit Diagnoses Diagnosis Spider bite wound, accidental or unintentional, initial encounter- Primary Lesion of skin of breast Unspecified breast disorder documented in this encounter Additional Health Concerns Assessment Noted Time PHQ-9 Depression Total Score: 0 02/02/20 20 11:19 AM CDT documented as of this encounter Care Teams Clerk General Relationship Specialty Start Date End Date Roosevelt Layne MD #[address] [address] PCP - General Family Medicine 09/03/15 documented as of this encounter
--- OUTSIDE RECORDS SUMMARY | 2024-10-09 16:34 | XMS_ITS | Encounter Summary ---
Author Organization [facility] Address [address] [place] [address] Phone Care Team Providers Care Meat Scrubber Name Role Phone Roosevelt Layne MD Primary Care Provider [phone] Reason for Visit * Reason Onset Date Comments Results 09/24/2020 Encounter Details Date Type Department Care Team (Late st Contact Info) Description 09/24/2020 Telephone [facility] [place] [address] Nasima Casillas, PAC [address] [place] [address] Results Social History Tobacco Use Types Packs/Day [...] COVID-19? No / Unsure 09/19/2020 11:04 AM ORDER BUILDER LOADER documented as of this encounter Miscellaneous Notes * Telephone Encounter - Marci Rahman RN - 09/24/2020 9:01 AM CST This nurse called the patient to advise of positive Covid lab. The patient said she was already notified. The patient was notified Nasima Vinny said: VinnyNsaima tomlinson Nelly, PAC 09/21/2020 ??5:46 PM ORDER BUILDER LOADER Positive covid I think she has already been called Quarantine 10 days F/u televideo visit next week with someone The patient said she is following instructions. The patient states she has an appointment already scheduled with Nasima Casillas 10/10/20. R BUILDER LOADER documented in this encounter Plan of Treatment Upcoming Encounters Date Type Department Care Team (Late st Contact Info) Description 10/31/2024 4:00 PM ORDER BUILDER LOADER Office Visit [facility] - [facility] [address] [place] [address] Pelon Tanner APRN, ELECTRICAL TRANSMISSION ENGINEER #[address] [address] documented as of this encounter Visit Diagnoses Not on filedocumented in this encounter Additional Health Concerns Infection Onset Date Last Indicated Resolved Time COVID - 19 09/19/2020 09/19/2020 10/09/2020 12:1 8 AM ORDER BUILDER LOADER COVID - 19 Confirmed 09/19/2020 09/19/2020 021 12:18 AM ORDER BUILDER LOADER Assessment Noted Time PHQ-9 Depression Total Score: 0 02/02/20 20 11:19 AM CDT documented as of this encounter Care Teams Meat Scrubber Relationship Specialty Start Date End Date Roosevelt Layne MD #[address] [address] PCP - General Family Medicine 09/03/15 documented as of this encounter
--- OUTSIDE RECORDS SUMMARY | 2024-10-09 16:34 | XMS_ITS | Encounter Summary ---
Author Organization [facility] Address [address] [place] [address] Phone Care Team Providers Care Customer Solutions Teammate Name Role Phone Roosevelt Layne MD Primary Care Provider [phone] Reason for Visit * Reason Comments Medication Refill Encounter Details Date Type Department Care Team (Late st Contact Info) Description 09/15/2020 Refill [facility] - Family Medicine [facility] [address]2 [place] [address] Roosevelt Layne MD #[address] [address] Medication Refill Social History Tobacco Use Types [...] encounter Miscellaneous Notes * Telephone Encounter - Naomie Panchal RN - 09/15/2020 10:04 PM CST Medication failed the protocol, provider to review and approve the medication order if appropriate.Last OV 02/02/20. Requested Prescriptions Pending Prescriptions Disp Refills weqfnijiue-bayrykvsfdgyz-ahgrlcox-codeine (FIORICET WITH CODEINE) [id number] MG Capsule [PharmacyMed Name: Tsaobnmmoq-WPXC-Maay-Cod [id number] MG Oral Capsule] 28 Cap 0 Sig: TAKE 1 CAPSULE BY MOUTH EVERY 6 HOURS NEEDED FOR MIGRAINE HEADACHE Not Delegated - Analgesics: Opioid Agonist Combinations Failed - 09/15/2020 1:59 PM Failed - Valid encounter within last 6 months Past Office Visits Recent Outpatient Visits 7 months ago Spider bite wound, accidental or unintentional, initial encounter [facility] Roosevelt Callahan MD 1 year ago Hypothyroidism, unspecified type [facility] Roosevelt Callahan MD 1 year ago Hypothyroidism, unspecified type [facility] Roosevelt Callahan MD 3 years ago Acute cystitis with hematuria [facility] Roosevelt Callahan MD 3 years ago Right foot injury, initial encounter [facility] Marilynn Casiano, KATHY Upcoming Appointments COKE WHEELER - Recent and Past Visits Recent Visits Date Type Provider Dept 02/02/20 Office Visit Roosevelt Lay[facility] MD [facility] Showing recent visits within past 460 days with a meds authorizing provider and meeting all other requirements Future Appointments No visits were found meeting these conditions. Showing future appointments within next 90 days with a meds authorizing provider and meeting all other requirements Failed - This refill cannot be delegated TH INSURANCE SPECIALIST documented in this encounter Plan of Treatment Upcoming Encounters Date Type Department Care Team (Late st Contact Info) Description 10/31/2024 4:00 PM HEALTH INSURANCE SPECIALIST Office Visit [facility] [place] [address] [place] [address] Pelon Tanner, NURSE EXAMINER, WHITE WORK CLEANER #[address] [address] documented as of this encounter Visit Diagnoses Not on filedocumented in this encounter Additional Health Concerns Infection Onset Date Last Indicated Resolved Time COVID - 19 09/19/2020 09/19/2020 10/09/2020 12:1 8 AM HEALTH INSURANCE SPECIALIST COVID - 19 Confirmed 09/19/2020 09/19/2020 021 12:18 AM HEALTH INSURANCE SPECIALIST COVID - 19 Confirmed 03/04/2022 03/04/2022 022 12:16 AM CDT Assessment Noted Time PHQ-9 Depression Total Score: 0 02/02/20 20 11:19 AM CDT documented as of this encounter Care Teams Customer Solutions Teammate Relationship Specialty Start Date End Date Roosevelt Layne MD [address] [address] PCP - General Family Medicine 09/03/15 documented as of this encounter
--- OUTSIDE RECORDS SUMMARY | 2024-10-09 16:34 | XMS_ITS | Encounter Summary ---
Author Organization [facility] Address [address] [place] [address] [place] [address] Phone Care Team Providers Care Cobol Developer Name Role Phone Roosevelt Layne MD Primary Care Provider [phone] Reason for Visit * Reason Comments Ear Pain Patient coming in [facility] illness visit for ear pain. Encounter Details Date Type Department Care Team (Late st Contact Info) Description 04/11/2022 11:15 AM CDT Office Visit [facility] - Family Medicine [facility] [address] [place] [address] Marilynn Brown PAC [address] [place] [address] Dysfunction of both eustachian tubes (Primary Dx) Discharge Disposition: Discharged to home or Selfcare [...] Sign Reading Time Taken Comments Blood Pressure 114/82 04/11/2022 11:02 AM CDT Pulse 82 04/11/2022 11:02 AM CDT Temperature 36.4 ??C (97.5 ??F) 04/11/2022 1 1:02 AM CDT Respiratory Rate - - Oxygen Saturation 99% 04/11/2022 11: 02 AM CDT Inhaled Oxygen Concentration - - Weight 100.7 kg (222 lb 1.6 oz) 022 11:02 AM CDT Height 175.3 cm (5' 9 ) 04/11/2022 11:0 2 AM CDT Body Mass Index 32.8 04/11/2022 11:02 AM CDT documented in this encounter Progress Notes * Lisa Espino - 04/11/2022 11:15 AM CDT Marci here today for illness visit for ear pressure and congestion. Patient reports decreased ability to hear with associated symptoms. Medication updated with Spironolactone 100 mg and Metformin 500 mg BID. -cs * Marilynn Brown, KATHY - 04/11/2022 11:15 AM CDT Subjective: Patient noticed ear pain yesterday, feels needs to pop ears Has been swimming Review of Systems Constitutional: Negative for chills and fever. HENT: Negative for congestion, sinus pressure, sinus pain, sore throat and trouble swallowing. Respiratory: Negative for cough. Neurological: Negative for dizziness. Objective: Physical Exam Vitals reviewed. Constitutional: Appearance: Normal appearance. She is not ill-appearing. HENT: Head: Normocephalic and atraumatic. Ears: Comments: TMs dull Nose: Nose normal. Mouth/Throat: Mouth: Mucous membranes are moist. Eyes: General: Right eye: No discharge. Left eye: No discharge. Extraocular Movements: Extraocular movements intact. Cardiovascular: Rate and Rhythm: Normal rate. Pulmonary: Effort: No respiratory distress. Neurological: Mental Status: She is alert. Assessment and Plan See Diagnoses, Orders, Follow-up, and Instructions .Diagnoses and all orders for this visit: Dysfunction of both eustachian tubes Other orders - metFORMIN (GLUCOPHAGE-XR) 500 MG TABLET SR 24 HR; Take 500 mg by mouth 2 times daily. - spironolactone (ALDACTONE) 100 MG Tablet - methylPREDNISolone (MEDROL DOSPACK) 4 MG Tablet Therapy Pack; Use as per instructions on package. - fluticasone (FLONASE) 50 MCG/ACT Suspension; 2 Sprays by Nasal route daily. Use in each nostril as directed. Discussed with patient no ear infection, likely eustachian tube dysfunction Discussed home care, if no improvements can take medrol dose pack documented in this encounter Plan of Treatment Upcoming Encounters Date Type Department Care Team (Late st Contact Info) Description 10/31/2024 4:00 PM CARBON LAMP CLEANER Office Visit [facility] - Family Medicine [facility] [address] [place] [address] Pelon Tanner, SNAKE CHARMER, BUSINESS LIBRARIAN #[address] [address] documented as of this encounter Visit Diagnoses Diagnosis Dysfunction of both eustachian tubes- Primary Dysfunction of Eustachian tube documented in this encounter Additional Health Concerns Assessment Noted Time PHQ-9 Depression Total Score: 0 02/02/20 20 11:19 AM CDT documented as of this encounter Care Teams Cobol Developer Relationship Specialty Start Date End Date Roosevelt Layne MD #[address] [address] PCP - General Family Medicine 09/03/15 documented as of this encounter
--- OUTSIDE RECORDS SUMMARY | 2024-10-09 16:34 | XMS_ITS | Encounter Summary ---
Author Organization [facility] Address [address] [place] [address] Phone Care Team Providers Care Cadastral Surveyor Name Role Phone Roosevelt Layne MD Primary Care Provider [phone] Reason for Visit * Reason Onset Date Comments COVID-19 09/19/2020 Encounter Details Date Type Department Care Team (Late st Contact Info) Description 09/19/2020 Telephone [facility] [address] [place] [address] Roosevelt Layne MD #[address] [address] COVID-19 Social History Tobacco Use Types Packs/Day Years [...] COVID-19? No / Unsure 09/19/2020 11:04 AM GOLF SALES ASSOCIATE documented as of this encounter Miscellaneous Notes * Telephone Encounter - Clyde Cazares RN - 09/19/2020 11:04 AM CST Images from the original note were not included. Travel Screening Question Response In the last month, have you been in contact with someone who was confirmed or suspected to have Coronavirus / COVID-19? No / Unsure Have you had a COVID-19 viral test in the last 14 days? No Do you have any of the following new or worsening symptoms? Chills;Cough Have you traveled internationally in the last month? No Travel History Travel since 08/20/20 No documented travel since 08/20/20 COVID-19 Testing Priority for Marci Ramos Sheets: 3 Nurse to triage SITUATION: Patient calling with covid like symptoms. 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 Yesterday temp was 99.8. Reports chills and a cough. Pt states school is requiring that she be tested for covid due to symptoms. Video visit scheduled with Nasima for today. RECOMMENDATION: See care advice and disposition for Guidelines First positive answer recorded, all responses to prior questions were negative. If symptoms increase, change, or if new symptoms develop, call back or call your HCP. Recommendations were based on caller information and are not a diagnosis. Verified and reviewed all triage information with caller. Patient request for an excuse note: (Per CDC: Employers should not require a positive COVID-19 testresult or a healthcare provider's note for employees who are sick to validate their illness, qualify for sick leave, or to return to work.) o If patient continues to request/need a return to work note, ask them to send a request via [employer] to their provider (you may need to activate a [employer] account with them). You may also route an excuse note request to the provider. Inform the patient that the provider will determine if a note will be sent and let them know that a telephone visit may be required. Caller verbalizes understanding of the above information. CLYDE CAZARES RN SALES ASSOCIATE documented in this encounter Plan of Treatment Upcoming Encounters Date Type Department Care Team (Late st Contact Info) Description 10/31/2024 4:00 PM GOLF SALES ASSOCIATE Office Visit [facility] - Family Medicine - [place] [address] [place] [address] Pelon Tanner APRN, CUSTOMER SOLUTIONS COORDINATOR [address] [address] documented as of this encounter Visit Diagnoses Not on filedocumented in this encounter Additional Health Concerns Infection Onset Date Last Indicated Resolved Time COVID - 19 09/19/2020 09/19/2020 10/09/2020 12:1 8 AM GOLF SALES ASSOCIATE Assessment Noted Time PHQ-9 Depression Total Score: 0 02/02/20 20 11:19 AM CDT documented as of this encounter Care Teams Cadastral Surveyor Relationship Specialty Start Date End Date Roosevelt Layne MD [address] [address] PCP - General Family Medicine 09/03/15 documented as of this encounter
--- OUTSIDE RECORDS SUMMARY | 2024-10-09 16:34 | XMS_ITS | Encounter Summary ---
Author Organization [facility] Address [address] [place] [address] Care Team Providers Care Cosmetologist Apprentice Name Role Phone Roosevelt Layne MD Primary Care Provider [phone] Encounter Details Date Type Department Care Team (Late st Contact Info) Description 11/23/2021 Lab Requisition [facility] Community Testing [facility] [address] [place] [address] Miguelito Jordan MD [address] [place] [address] [address] [place], [place] [id number] Social History Tobacco Use Types Packs/Day Years [...] st Contact Info) Description 10/31/2024 4:00 PM LIFE CARE PLANNER [facility] [address]2 [place] [address] Pelon Tanner, FIRER RETORT, DISTRICT MANAGER MAJOR ACCOUNTS SALES #[address] [address] documented as of this encounter Procedures Procedure Name Priority Date/Time Associated Diagnosis Comments SARS-COV-2 PCR [facility] ONLY Routine 11/23/2021 12:53 PM LIFE CARE PLANNER documented in this encounter Visit Diagnoses Not on filedocumented in this encounter Additional Health Concerns Assessment Noted Time PHQ-9 Depression Total Score: 0 02/02/20 20 11:19 AM CDT documented as of this encounter Care Teams Cosmetologist Apprentice Relationship Specialty Start Date End Date Roosevelt Layne MD #[address] [address] PCP - General Family Medicine 09/03/15 documented as of this encounter
--- OUTSIDE RECORDS SUMMARY | 2024-10-09 16:34 | XMS_ITS | Encounter Summary ---
Author Organization [facility] Address [address] [place] [address] [address] Phone Care Team Providers Care Television Analyzer Name Role Phone Roosevelt Layne MD Primary Care Provider [phone] Encounter Details Date Type Department Care Team (Late st Contact Info) Description 11/24/2021 Telephone [facility] - Family Medicine [facility] #2 [place] [address] Roosevelt Layne MD #[address] [address] Social History Tobacco Use Types Packs/Day Years [...] Telephone Encounter - Roosevelt Layne MD - 11/24/2021 3:23 PM CASINO FLOOR WALKER DONE. NO FLOOR WALKER documented in this encounter Plan of Treatment Upcoming Encounters Date Type Department Care Team (Late st Contact Info) Description 10/31/2024 4:00 PM CASINO FLOOR WALKER Office Visit [facility] - [facility] - [place] [address] [place] [address] Pelon Tanner APRN, HOGSHEAD STOCK CLERK #[address] [address] documented as of this encounter Visit Diagnoses Not on filedocumented in this encounter Additional Health Concerns Assessment Noted Time PHQ-9 Depression Total Score: 0 02/02/20 20 11:19 AM CDT documented as of this encounter Care Teams Television Analyzer Relationship Specialty Start Date End Date Roosevelt Layne MD #[address] [address] PCP - General Family Medicine 09/03/15 documented as of this encounter
--- OUTSIDE RECORDS SUMMARY | 2024-10-09 16:34 | XMS_ITS | Encounter Summary ---
Author Organization [facility] Address [address] [place] [address] Phone Care Team Providers Care Oil Burner Installer Name Role Phone Roosevelt Layne MD Primary Care Provider [phone] Reason for Visit * Reason Comments Head Congestion Encounter Details Date Type Department Care Team (Late st Contact Info) Description 09/19/2020 1:30 PM STAFF PHARMACIST Telemedicine [facility] [address] [place] [address] Nasima Casillas, PAC [address] [place] [address] Upper respiratory tract infection, unspecified type (Primary Dx) Discharge Disposition: Discharged to home [...] COVID-19? No / Unsure 09/19/2020 11:04 AM STAFF PHARMACIST documented as of this encounter Progress Notes * Nasima Casillas PAC - 09/19/2020 1:30 PM CST Patient was assessed via telephone for a duration of 5 minutes. Patient verbally consented for thisservice to be performed and billed. HPI: Marci Cote is a 29 y.o. female evaluated today for . 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 albuterol (PROAIR HFA) 108 (90 Base) MCG/ACT Aerosol Solution ??? ibxejiivcu-jijjdmbbhjdul-afuqwxgm-codeine (FIORICET WITH CODEINE) [id number] MG Capsule ??? FLUCELVAX QUADRIVALENT 0.5 ML Suspension Prefilled Syringe ??? levothyroxine (SYNTHROID) 100 MCG Tablet The past medical, surgical, family and social histories, and allergies were reviewed and updated asneeded. ROS: See above Plan: ICD-10-CM 1. Upper respiratory tract infection, unspecified type J06.9 Will check COVID for this patient Rapid testing today PCR if sx persist D/w pt supportive care Nasal steroids Antihistamines Cough cold meds Supportive care F/u in 1 week Will await results Follow Up: Marci was asked to follow up with in 1 week(s). The After Visit Summary is printed and will be mailed to the patient. F PHARMACIST documented in this encounter Plan of Treatment Upcoming Encounters Date Type Department Care Team (Late st Contact Info) Description 10/31/2024 4:00 PM STAFF PHARMACIST [facility] Visit [facility] [address]2 [place] [address] Pelon Tanner, FAMILY DAY CARER, TRAVEL OT #[address] [address] documented as of this encounter Results * (ABNORMAL) POCT SARS ANTIGEN KJ (09/19/2020 3:00 PM STAFF PHARMACIST) POC SARS ANTIGEN KJ Positive(A) Negative POC SARS ANTIGEN KJ CONTROL Manager Of Creative Services Pass Swab NASAL STRUCTURE / Unknown 09/19/2020 3:00 PM STAFF PHARMACIST Result [facility] Nelly Casillas PAC POINT OF CARE KIM TING (MANUAL) Final Result documented in this encounter Visit Diagnoses Diagnosis Upper respiratory tract infection, unspecified type- Primary documented in this encounter Additional Health Concerns Infection Onset Date Last Indicated Resolved Time COVID - 19 09/19/2020 09/19/2020 10/09/2020 12:1 8 AM STAFF PHARMACIST Assessment Noted Time PHQ-9 Depression Total Score: 0 02/02/20 20 11:19 AM CDT documented as of this encounter Care Teams Oil Burner Installer Relationship Specialty Start Date End Date Roosevelt Layne MD #[address] [address] PCP - General Family Medicine 09/03/15 documented as of this encounter
--- OUTSIDE RECORDS SUMMARY | 2024-10-09 16:34 | XMS_ITS | Encounter Summary ---
Author Organization [employer] Care Team Providers Care Social Service Coordinator Name Role Phone Roosevelt Layne MD Primary Care Provider [phone] Encounter Details Date Type Department Care Team (Latest Contact Info) Description 02/02/2020 Travel Social History Tobacco Use Types Packs/Day [...] st Contact Info) Description 10/31/2024 4:00 PM MEDICAL COORDINATOR PESTICIDE USE Office Visit [facility] - Family Medicine - [place] [address] [place] [address] Pelon Tanner, MASTER OF CEREMONIES, PROJECT PRODUCT MANAGER [address] [address] documented as of this encounter Visit Diagnoses Not on filedocumented in this encounter Additional Health Concerns Assessment Noted Time PHQ-9 Depression Total Score: 0 02/02/20 20 11:19 AM CDT documented as of this encounter Care Teams Social Service Coordinator Relationship Specialty Start Date End Date Roosevelt Layne MD #[address] [place] [id number] PCP - General Family Medicine 09/03/15 documented as of this encounter
--- OUTSIDE RECORDS SUMMARY | 2024-10-09 16:34 | XMS_ITS | Encounter Summary ---
Author Organization [facility] Address [address] [place] [address] Phone Care Team Providers Care Language And Literature Division Chair Name Role Phone Isaac Mujica MD Primary Care Provider [phone] Reason for Visit * Reason Comments Insect Bite possible spider bite * Consult, Test & Initiate Treatment (Less Than 3 Days) - Closed Specialty Diagnoses / Procedures Referred By Marck giron Referred To Contact General Surgery Diagnoses Spider bite wound, accidental or unintentional, initial encounter Lesion of skin of breast Isaac Mujica MD [address] [address] Phone: tel: fax: [facility] General Surgery [facility] [address] [address] Phone: tel: fax: Referral ID Status Reason Start Date Expiration Date Visits Re quested Visits Authorized [id number] Closed 02/02/2020 1 1 Encounter Details Date Type Department Care Team (Late st Contact Info) Description 02/02/2020 12:00 PM CDT Office Visit [facility] General Surgery - [place] #[address] [address] Isaac Mujica MD #[address] [address] Oziel Nunn MD [address] [address] Spider bite wound, accidental or unintentional, initial encounter; Lesion of skin of breast Discharge Disposition: [...] Sign Reading Time Taken Comments Blood Pressure 122/74 02/02/2020 12:00 PM CDT Pulse 85 02/02/2020 12:00 PM CDT Temperature 37.4 ??C (99.3 ??F) 02/02/2020 12:00 PM C DT Respiratory Rate - - Oxygen Saturation 97% 02/02/2020 12:00 PM CDT Inhaled Oxygen Concentration - - Weight 96.6 kg (213 lb) 02/02/2020 12:00 PM CDT Height 175.3 cm (5' 9 ) 02/02/2020 12:00 PM CDT Body Mass Index 31.45 02/02/2020 12:00 PM CDT documented in this encounter Patient Instructions * Patient Instructions* Oziel Nunn MD - 02/02/2020 12:00 PM CDT Thanks for visit in my clinic Continue antibiotic therapy for now I will see you back in my office in 7-10 days to check her wound Avoid scratching to that area Okay to use steroid cream as needed documented in this encounter Progress Notes * Oziel Nunn MD - 02/02/2020 12:00 PM CDT HISTORY AND PHYSICAL Assessment: Possible spider bite, right breast Thyroid disease Dyslipidemia Anemia B12 deficiency PLAN: Thank you very much for this referral. We will try antibiotic therapy for 7-10 days and I will evaluate the patient after the antibiotic therapy. No acute surgical intervention needed at this time. Hopefully this will resolve with antibiotic and time. Subjective: HPI: Marci Cote is a 29 y.o. female who I was asked to see by ISAAC MUJICA MD for possible spider bite on right breast. She was cleaning some cabinets last week on when she has a spider on her anterior chest, she began with symptoms of itching and redness on her anterior chest on the right breast immediately after that event. The erythema has been improving little bit since then but because this persisted she decided to consult today to her primary care physician. She has previously healthy a she had a history of a in the past, her mom was diagnosed recently with breast cancer and she underwent bilateral mastectomy. She is here for evaluation for this potential spider bite. Patient Active Problem List Diagnosis Date Noted ??? Obesity (BMI 30-39.9) 05/09/2019 ??? Skin lesion 05/09/2019 ??? Freckles 05/09/2019 ??? B12 deficiency 04/21/2017 ??? Migraine without aura and with status migrainosus, not intractable 02/18/2017 ??? Overweight (BMI 25.0-29.9) 02/18/2017 ??? Hypothyroidism 03/22/2016 ??? Vitamin D deficiency 11/07/2015 ??? Chronic fatigue 11/02/2015 ??? Migraine 09/03/2015 Allergies Allergen Reactions ??? Cephalexin Unknown and Other (see Comments) GI upset GI upset GI upset ??? Sumatriptan Other (see Comments) Numbness on the left side. Numbness on the left side. Numbness on the left side. Numbness on the left side. Numbness on the left side. Numbness on the left side. Cannot display prior to admission medications because the patient has not been admitted in this contact. Current Outpatient Medications on File Prior to Visit Medication Sig Dispense Refill ??? albuterol (PROAIR HFA) 108 (90 Base) MCG/ACT Aerosol Solution take 2 Puffs by inhalation every 4 hours as needed for Wheezing or Cough. 1 Inhaler 0 ??? nylqtkuvoe-wprblewswmbyl-glouemgw-codeine (FIORICET WITH CODEINE) [phone] MG Capsule Take 1 Cap by mouth every 6 hours as needed for Migraine. 60 Cap 0 ??? doxycycline hyclate (VIBRAMYCIN) 100 MG Capsule Take 1 Cap by mouth 2 times daily for 10 days. 20 Cap 0 ??? FLUCELVAX QUADRIVALENT 0.5 ML Suspension Prefilled Syringe TO BE ADMINISTERED BY PHARMACIST FORIMMUNIZATION 0 ??? levothyroxine (SYNTHROID) 100 MCG Tablet Take 100 mcg by mouth daily. No current facility-administered medications on file prior to visit. Past Medical History Positives Diagnosis Date ??? Anemia, iron deficiency ??? B12 deficiency ??? Dyslipidemia ??? Migraines ??? Thyroid disease No past surgical history on file. Family History Problem Relation Age of Onset ??? No Known Problems Mother ??? No Known Problems Father ??? Cancer Maternal Grandmother Social History Socioeconomic History ??? Marital status: [...] Substance and Sexual Activity ??? Alcohol use: No ??? Drug use: No ??? Sexual activity: Never Lifestyle ??? Physical activity: Days per week: Not on file Minutes per session: Not on file ??? Stress: Not on file Relationships ??? Social connections: Talks on phone: Not on file Gets together: Not on file Attends confucianism service: Not on file Active member of [...] Narrative ??? Not on file Review of Systems: Review of Systems Skin: Positive for itching and rash. Anterior chest, right breast itching and tenderness All other systems reviewed and are negative. Pertinent items are noted in HPI. All other systems were reviewed and were negative. Objective: VITALS: BP 122/74 (BP Location: Left Arm, BP Position: Sitting, BP Cuff Size: Regular) Pulse 85 Temp 99.3 ??F (37.4 ??C) (Tympanic) Ht 5' 9 (1.753 m) Wt 213 lb (96.6 kg) LMP 01/01/2020 SpO2 97% BMI 31.45 kg/m?? Physical Exam Constitutional: She is oriented to person, place, and time and well-developed, well-nourished, and in no distress. HENT: Head: Normocephalic. Eyes: Pupils are equal, round, and reactive to light. Neck: Normal range of motion. Cardiovascular: Normal rate, regular rhythm, normal heart sounds and intact distal pulses. Pulmonary/Chest: Effort normal and breath sounds normal. No respiratory distress. She has no wheezes. She has no rales. She exhibits no tenderness. Abdominal: Soft. Bowel sounds are normal. She exhibits no distension and no mass. There is no abdominal tenderness. There is no rebound and no guarding. Musculoskeletal: Normal range of motion. Neurological: She is alert and oriented to person, place, and time. Gait normal. GCS score is 15. Skin: Skin is warm. Psychiatric: Mood, memory, affect and judgment normal. Breast exam Bilateral breast palpation revealed no masses, no nipple discharge, no skin retraction There is an area of erythema on the right breast at 2 or 3:00 a.m., no fluctuance, no pain No supraclavicular or axillary lymphadenopathies Data Review: No results for input(s): ALBUMIN, TBIL, BILIRUBIN, ALKALINEPHO, SGOTAST, SGPTALT, TOTALPROTEIN in the last 72 hours. Lab Results Component Value Date WBC 6.89 11/05/2015 HEMOGLOBIN 12.6 11/05/2015 HEMATOCRIT 37.4 11/05/2015 PLATELETCNT 237 11/05/2015 SODIUM 140 03/28/2016 POTASSIUM 3.8 03/28/2016 CHLORIDE 104 03/28/2016 CREATININE 0.70 03/28/2016 BUN 7 (L) 03/28/2016 CO2VEN 25 03/28/2016 TSH 4.160 07/06/2018 GLUCOSE 95 03/28/2016 By: OZIEL NUNN MD, 02/02/2020, 12:05 PM Primary Care Physician: ISAAC MUJICA MD documented in this encounter Plan of Treatment Upcoming Encounters Date Type Department Care Team (Late st Contact Info) Description 10/31/2024 4:00 PM COLOR COATER Office Visit [facility] Medical Group - [facility] [address] [place] [address] Pelon Tanner APRN, IDENTIFICATION CLERK [address] [address] documented as of this encounter Visit Diagnoses Diagnosis Spider bite wound, accidental or unintentional, initial encounter Lesion of skin of breast Unspecified breast disorder documented in this encounter Additional Health Concerns Assessment Noted Time PHQ-9 Depression Total Score: 0 02/02/20 20 11:19 AM CDT documented as of this encounter Care Teams Language And Literature Division Chair Relationship Specialty Start Date End Date Isaac Mujica MD #[address] [address] PCP - General Family Medicine 09/03/15 documented as of this encounter
--- OUTSIDE RECORDS SUMMARY | 2024-10-09 16:34 | XMS_ITS | Encounter Summary ---
Author Organization [employer] Care Team Providers Care Validation Leader Name Role Phone Roosevelt Layne MD Primary Care Provider [phone] Encounter Details Date Type Department Care Team (Latest Contact Info) Description 03/04/2022 Travel Social History Tobacco Use Types Packs/Day [...] st Contact Info) Description 10/31/2024 4:00 PM LEARN TO SWIM INSTRUCTOR Office Visit [facility] Medical Group - Family Medicine - [place] [address] [place] [id number] Pelon Tanner, WAREHOUSE MANAGER, FURNACE CARETAKER [address] [address] documented as of this encounter Visit Diagnoses Not on filedocumented in this encounter Additional Health Concerns Infection Onset Date Last Indicated Resolved Time COVID - 19 Confirmed 03/04/2022 03/04/2022 022 12:16 AM CDT Assessment Noted Time PHQ-9 Depression Total Score: 0 02/02/20 20 11:19 AM CDT documented as of this encounter Care Teams Validation Leader Relationship Specialty Start Date End Date Roosevelt Layne MD [address] [place] [address] PCP - General Family Medicine 09/03/15 documented as of this encounter
--- OUTSIDE RECORDS SUMMARY | 2024-10-09 16:34 | XMS_ITS | Encounter Summary ---
Author Organization [facility] Address [address] [place] [address] Phone Care Team Providers Care Director Of Plant Operations Name Role Phone Roosevelt Layne MD Primary Care Provider [phone] Encounter Details Date Type Department Care Team (Late st Contact Info) Description 09/19/2020 3:00 PM CRITICAL CARE PHYSICIAN Lab [facility] [place] [address] [place] [address] Clinic, [place] [facility] [place] Upper respiratory tract infection, unspecified type Discharge Disposition: Discharged to home or Selfcare [...] COVID-19? No / Unsure 09/19/2020 11:04 AM CRITICAL CARE PHYSICIAN documented as of this encounter Progress Notes * Kortney Pugh RN - 09/19/2020 3:00 PM CST [facility] to [facility] for drive up nasal POCT Covid swab. Patient swabbed with no difficulty and patient tolerated well. Written instruction given on care at home, and home isolation. Pt given POCT results and asked to follow care at home sheet. Questions answered. [facility] ICAL CARE PHYSICIAN documented in this encounter Plan of Treatment Upcoming Encounters Date Type Department Care Team (Late st Contact Info) Description 10/31/2024 4:00 PM CRITICAL CARE PHYSICIAN Office Visit [facility] Medical Group - Family [facility] [address] [place] [address] Pelon Tanner APRN, ROAD MIXER OPERATOR #[address] [address] documented as of this encounter Procedures Procedure Name Priority Date/Time Associated Diagnosis Comments POCT SARS ANTIGEN KJ Routine 09/19/2020 3:00 PM CRITICAL CARE PHYSICIAN Upper respiratory tract infection, unspecified type documented in this encounter Results * (ABNORMAL) POCT SARS ANTIGEN KJ (09/19/2020 3:00 PM CRITICAL CARE PHYSICIAN) POC SARS ANTIGEN KJ Positive(A) Negative POC SARS ANTIGEN KJ CONTROL [employer] Exploration Technician Pass Swab NASAL STRUCTURE / Unknown 09/19/2020 3:00 PM CRITICAL CARE PHYSICIAN Nasima Casillas PAC POINT OF CARE KIM GAMEZ (MANUAL) Final Result documented in this encounter Visit Diagnoses Diagnosis Upper respiratory tract infection, unspecified type documented in this encounter Additional Health Concerns Infection Onset Date Last Indicated Resolved Time COVID - 19 09/19/2020 09/19/2020 10/09/2020 12:1 8 AM CRITICAL CARE PHYSICIAN Assessment Noted Time PHQ-9 Depression Total Score: 0 02/02/20 20 11:19 AM CDT documented as of this encounter Care Teams Director Of Plant Operations Relationship Specialty Start Date End Date Roosevelt Layne MD #[address] [address] PCP - General Family Medicine 09/03/15 documented as of this encounter
--- OUTSIDE RECORDS SUMMARY | 2024-10-09 16:35 | XMS_ITS | Encounter Summary ---
Author Organization [facility] Healthcare Address [address] [place] [address] Care Team Providers Care Clinical Resource Director Name Role Phone Roosevelt Layne MD Primary Care Provider [phone] Encounter Details Date Type Department Care Team (Latest Contact Info) Description 11/26/2022 4:19 PM FORECLOSURE HOME INSPECTOR - 11/26/2022 11:59 PM FORECLOSURE HOME INSPECTOR Hospital Encounter [facility] [address] [place] [address] Sore throat Discharge Disposition: Discharge to home or self care Social History Tobacco Use Types Packs/Day Years Used Date Smoking Tobacco: Never Smokeless Tobacco: Never Comments Unknown Sex and Gender Information Value Date Recorded Sex Assigned at Not on file Legal Sex Female 9:27 PM FORECLOSURE HOME INSPECTOR Gender Identity Not on file Sexual Orientation Not on file documented as of this encounter Medications at Time of Discharge albuterol HFA (PROAIR HFA) 90 mcg/actuation inhaler inhale 2 puff by inhalation route every 4 - 6 hours as needed 1 Inhaler 0 09/22/2016 levothyroxine (SYNTHROID) 100 mcg tablet Take 100 mcg by mouth cardiology technician before breakfast metFORMIN XR (GLUCOPHAGE XR) 500 mg 24 hr tablet 10/15/2022 spironolactone (ALDACTONE) 100 mg tablet 11/25/2022 documented as of this encounter Discharge Disposition Disposition Code Departure Means Destination Discharge to home or self care documented in this encounter Miscellaneous Notes * Result Encounter Note - Keren Marie NP - 11/26/2022 11:59 PM FORECLOSURE HOME INSPECTOR Call pt regarding normal result- throat cx CLOSURE HOME INSPECTOR * Result Encounter Note - Kaitlynn Kim MA - 11/26/2022 11:59 PM FORECLOSURE HOME INSPECTOR Patient notified of test results CLOSURE HOME INSPECTOR documented in this encounter Plan of Treatment Not on file documented as of this encounter Procedures Procedure Name Priority Date/Time Associated Diagnosis Comments THROAT CULTURE Routine 11/26/2022 4:19 PM FORECLOSURE HOME INSPECTOR Sore throat documented in this encounter Results * Throat culture Throat (11/26/2022 4:19 PM FORECLOSURE HOME INSPECTOR) Report Final Report: No growth of pathogens. MIGUEL SUE Comment:Testing performed by : [facility], [address] [place]., [address] Throat 11/26/2022 4:19 PM FORECLOSURE HOME INSPECTOR 11/26/2022 10:27 PM FORECLOSURE HOME INSPECTOR Narrative MIGUEL SUE - 11/27/2022 6:00 PM FORECLOSURE HOME INSPECTOR Testing performed by [facility] ([phone]). us Keren Marie NP LAB MICROBIOLOGY - [facility] ORDERABLES Final Result MIGUEL [id number] Department [place] [address] documented in this encounter Visit Diagnoses Diagnosis Sore throat Acute pharyngitis documented in this encounter Care Teams Clinical Resource Director Relationship Specialty Start Date End Date Roosevelt Layne MD [address] [place] [address] PCP - General 09/22/16 documented as of this encounter
--- OUTSIDE RECORDS SUMMARY | 2024-10-09 16:35 | XMS_ITS | Referral Summary ---
Author Organization [address] Address [address] [place] [address] Care Team Providers Care Soil Scientist Name Role Phone Roosevelt Layne MD Primary Care Provider [phone] Allergies Active Allergy Reactions Criticality Noted Date Comments Cephalexin Other (See comments),Unknown Low 08/17/2017 GI upset GI upset GI upset GI upset GI upset Sumatriptan Other (See comments) Low 01/07/2016 Numbness on the left side. Numbness on the left side. Numbness on the left side. Numbness on the left side. Numbness on the left side. Numbness on the left side. Numbness on the left side. Numbness on the left side. Numbness on the left side. Numbness on the left side. Numbness on the left side. Medications albuterol HFA (PROAIR HFA) 90 mcg/actuation inhaler inhale 2 puff by inhalation route every 4 - 6 hours as needed 1 Inhaler 0 6 Active metFORMIN XR (GLUCOPHAGE XR) 500 mg 24 hr tablet 3 Active spironolactone (ALDACTONE) 100 mg tablet 3 Active levothyroxine (SYNTHROID) 100 mcg tablet Take 100 mcg by mouth animal impersonator before breakfast Active Active Problems Problem Noted Date Diagnosed Date Freckles 05/09/2019 Skin lesion 05/09/2019 B12 deficiency 04/21/2017 Migraine without aura and wi th status migrainosus, not intractable 02/18/2017 Overweight (BMI 25.0-29.9) 02/18/2017 Hypothyroidism 03/22/2016 Vitamin D deficiency 11/07/2015 Chronic fatigue 11/02/2015 Migraine 09/03/2015 Social History Tobacco Use Types Packs/Day Years Used Date Smoking Tobacco: Never Smokeless Tobacco: Never Tobacco Cessation:Counseling Given: Yes Comments Unknown Sex and Gender Information Value Date Recorded Sex Assigned at Not on file Legal Sex Female 9:27 PM TANNING DRUM OPERATOR Gender Identity Not on file Sexual Orientation Not on file Last Filed Vital Signs Vital Sign Reading Time Taken Comments Blood Pressure 94/62 11/26/2022 4:00 PM TANNING DRUM OPERATOR Pulse 96 11/26/2022 4:00 PM TANNING DRUM OPERATOR Temperature 37.2 ??C (99 ??F) 11/26/2022 4:00 PM TANNING DRUM OPERATOR Respiratory Rate 20 11/26/2022 4:00 PM TANNING DRUM OPERATOR Oxygen Saturation 97% 11/26/2022 4:00 PM TANNING DRUM OPERATOR Inhaled Oxygen Concentration - - Weight 90.7 kg (200 lb) 11/26/2022 4:00 PM TANNING DRUM OPERATOR Height 175.3 cm (5' 9 ) 11/26/2022 4:00 PM TANNING DRUM OPERATOR Body Mass Index 29.53 11/26/2022 4:00 PM TANNING DRUM OPERATOR Plan of Treatment Not on file Insurance CHOICE PLUS CHOICE PLUS [place] [id number] Care Teams Soil Scientist Relationship Specialty Start Date End Date Roosevelt Layne MD [address] [place] [address] PCP - General 09/22/16
--- OUTSIDE RECORDS SUMMARY | 2024-10-09 16:35 | XMS_ITS | Encounter Summary ---
Author Organization [facility] Address [address] [place] [address] Care Team Providers Care [place] Supervisor Name Role Phone Roosevelt Layne MD Primary Care Provider [phone] Reason for Visit * Reason Comments Sore Throat Exposed from daughte r 11/24/21 (positive), sinus drainage. Encounter Details Date Type Department Care Team (Late st Contact Info) Description 11/26/2022 4:00 PM ACTIVITIES SPECIALIST Office Visit [facility] [address] [place] [address] [place] [address] Keren Marie, MADDI [address] [place] [address] Sore throat (Primary Dx) Social History Tobacco Use Types Packs/Day Years Used Date Smoking Tobacco: Never Smokeless Tobacco: Never Tobacco Cessation:Counseling Given: Yes Comments Unknown Sex and Gender Information Value Date Recorded Sex Assigned at Not on file Legal Sex Female 9:27 PM ACTIVITIES SPECIALIST Gender Identity Not on file Sexual Orientation Not on file documented as of this encounter Last Filed Vital Signs Vital Sign Reading Time Taken Comments Blood Pressure 94/62 11/26/2022 4:00 PM ACTIVITIES SPECIALIST Pulse 96 11/26/2022 4:00 PM ACTIVITIES SPECIALIST Temperature 37.2 ??C (99 ??F) 11/26/2022 4:00 PM ACTIVITIES SPECIALIST Respiratory Rate 20 11/26/2022 4:00 PM ACTIVITIES SPECIALIST Oxygen Saturation 97% 11/26/2022 4:00 PM ACTIVITIES SPECIALIST Inhaled Oxygen Concentration - - Weight 90.7 kg (200 lb) 11/26/2022 4:00 PM ACTIVITIES SPECIALIST Height 175.3 cm (5' 9 ) 11/26/2022 4:00 PM ACTIVITIES SPECIALIST Body Mass Index 29.53 11/26/2022 4:00 PM ACTIVITIES SPECIALIST documented in this encounter Patient Instructions * Patient Instructions* Keren Marie NP - 11/26/2022 4:00 PM ACTIVITIES SPECIALIST You may gargle with warm salt water, suck on throat lozenges, or throat sprays Use a decongestant for your congestion. You can dry up your runny nose with an antihistamine Elevate your pillow at night when you are sleeping to reduce the drainage down your throat. Please follow up with your PCP if you are not getting any better VITIES SPECIALIST documented in this encounter Progress Notes * Keren Marie NP - 11/26/2022 4:00 PM CST Images from the original note were not included. Subjective/Objective Patient ID: Marci Cote is a 32 y.o. female. Chief Complaint Sore Throat (Exposed from daughter 11/24/21 (positive), sinus drainage.) Presents to clinic for post nasal drainage & sore throat x1 day. She has taken tylenol/advil. Exposed to strep by daughter. Sore Throat This is a new problem. The current episode started yesterday. The problem has been unchanged. Therehas been no fever. Pertinent negatives include no congestion, coughing, diarrhea, ear discharge, ear pain, headaches, shortness of breath or vomiting. Review of Systems Constitutional: Negative for activity change, appetite change, fatigue and fever. HENT: Positive for postnasal drip and sore throat. Negative for congestion, ear discharge, ear pain, rhinorrhea and sinus pressure. Eyes: Negative for discharge. Respiratory: Negative for cough and shortness of breath. Gastrointestinal: Negative for diarrhea, nausea and vomiting. Musculoskeletal: Negative for myalgias. Skin: Negative for rash. Neurological: Negative for headaches. Hematological: Negative for adenopathy. Physical Exam Vitals reviewed. Constitutional: General: She is not in acute distress. Appearance: Normal appearance. She is well-developed. She is not ill-appearing. HENT: Head: Normocephalic. Right Ear: Tympanic membrane, ear canal and external ear normal. Left Ear: Tympanic membrane, ear canal and external ear normal. Nose: No congestion or rhinorrhea. Right Sinus: No maxillary sinus tenderness or frontal sinus tenderness. Left Sinus: No maxillary sinus tenderness or frontal sinus tenderness. Mouth/Throat: Lips: [place]. Mouth: Mucous membranes are moist. Pharynx: Oropharynx is clear. Posterior oropharyngeal erythema present. Eyes: General: Right eye: No discharge. Left eye: No discharge. Conjunctiva/sclera: Conjunctivae normal. Cardiovascular: Rate and Rhythm: Normal rate and regular rhythm. Pulmonary: Effort: Pulmonary effort is normal. No respiratory distress. Breath sounds: Normal breath sounds and air entry. Abdominal: Tenderness: There is no abdominal tenderness. Musculoskeletal: General: Normal range of motion. Cervical back: Neck supple. Lymphadenopathy: Head: Right side of head: No tonsillar adenopathy. Left side of head: No tonsillar adenopathy. Cervical: No cervical adenopathy. Skin: General: Skin is warm and dry. Findings: No rash. Neurological: Mental Status: She is alert and oriented to person, place, and time. Mental status is at baseline. Psychiatric: Attention and Perception: Attention normal. Mood and Affect: Mood normal. Behavior: Behavior normal. Behavior is cooperative. Thought Content: Thought content normal. Judgment: Judgment normal. Vitals: 11/26/22 1600 BP: 94/62 Pulse: 96 Resp: 20 Temp: 37.2 ??C (99 ??F) TempSrc: Oral SpO2: 97% Weight: 90.7 kg (200 lb) Height: 175.3 cm (5' 9 ) Assessment/Plan You may gargle with warm salt water, suck on throat lozenges, or throat sprays Use a decongestant for your congestion. You can dry up your runny nose with an antihistamine Elevate your pillow at night when you are sleeping to reduce the drainage down your throat. Please follow up with your PCP if you are not getting any better Diagnoses and all orders for this visit: Sore throat (Primary) - POCT rapid strep A - Throat culture Throat; Future Recent Results (from the past 4 hour(s)) POCT rapid strep A Collection Time: 11/26/22 4:16 PM Result Value Ref Range Rapid Strep A, POC Negative Patient Education: Disposition Treatment plan including expectations, follow up, and return precautions discussed with patient/parent, verbalizes understanding. Medication dosage, use, and potential adverse reactions discussed with patient/parent. Advised to follow up with PCP if symptoms do not resolve as expected or sooner if condition worsens. Signs/symptoms warranting ER evaluation reviewed. Patient and/or guardian was given an opportunity to ask questions, questions answered. Keren Marie NP VITIES SPECIALIST documented in this encounter Plan of Treatment Not on file documented as of this encounter Procedures Procedure Name Priority Date/Time Associated Diagnosis Comments POCT RAPID STREP Routine 11/26/2022 4:16 PM ACTIVITIES SPECIALIST Sore throat documented in this encounter Results * Throat culture Throat (11/26/2022 4:19 PM ACTIVITIES SPECIALIST) Report Final Report: No growth of pathogens. MIGUEL SUE Comment:Testing performed by : [facility], [address] [place] [address]., [id number] Throat 11/26/2022 4:19 PM ACTIVITIES SPECIALIST 11/26/2022 10:27 PM ACTIVITIES SPECIALIST Narrative MIGUEL SUE - 11/27/2022 6:00 PM ACTIVITIES SPECIALIST Testing performed by [facility] Microbiology Laboratory ([phone]). Keren Marie NP LAB MICROBIOLOGY - [facility] ORDERABLES Final Result MIGUEL [id number] Department [place] [address] * POCT rapid strep A (11/26/2022 4:16 PM ACTIVITIES SPECIALIST) Rapid Strep A, POC Negative Swab 11/26/2022 4:16 PM ACTIVITIES SPECIALIST Keren Marie NP POINT OF CARE TEST OR DERABLES Final Result documented in this encounter Visit Diagnoses Diagnosis Sore throat- Primary Acute pharyngitis Sore throat Acute pharyngitis documented in this encounter Discontinued Medications Medication Sig Discontinue Reason Start Date End Da te levothyroxine sodium (TIROSINT) 13 mcg capsule 13 mcg. Therapy completed 09/22/2016 11/26/2022 documented as of this encounter Historical Medications * This list may reflect changes made after this encounter. levothyroxine (SYNTHROID) 100 mcg tablet Take 100 mcg by mouth senior lead software engineer before breakfast spironolactone (ALDACTONE) 100 mg tablet 11/25/2022 metFORMIN XR (GLUCOPHAGE XR) 500 mg 24 hr tablet 10/15/2022 added in this encounter Care Teams [place] Supervisor Relationship Specialty Start Date End Date Roosevelt Layne MD [address] [address] PCP - General 09/22/16 documented as of this encounter
--- OUTSIDE RECORDS SUMMARY | 2024-10-09 16:35 | XMS_ITS | Clinical Summary ---
Author Organization [address] Address [address] [place] [id number] Care Team Providers Care Laborer [employer] Name Role Phone Roosevelt Layne MD Primary Care Provider [phone] Allergies Active Allergy Reactions Criticality Noted Date [...] mcg tablet Take 100 mcg by mouth speech therapist early intervention before breakfast Active Active Problems Problem Noted Date Diagnosed Date Freckles 05/09/2019 Skin lesion 05/09/2019 B12 deficiency 04/21/2017 Migraine without aura and wi th status migrainosus, not intractable 02/18/2017 Overweight (BMI 25.0-29.9) 02/18/2017 Hypothyroidism 03/22/2016 Vitamin D deficiency 11/07/2015 Chronic fatigue 11/02/2015 Migraine 09/03/2015 Family History Medical History Relation Name Comments Cancer Other Family history of Cancer, unknown; Relation Name Status Comments Other Social History Tobacco Use Types Packs/Day Years Used Date Smoking Tobacco: Never Smokeless Tobacco: Never Tobacco Cessation:Counseling Given: Yes Comments Unknown Sex and Gender Information Value Date Recorded Sex Assigned at Not on file Legal Sex Female 9:27 PM DECORATOR [employer]NE[employer] Gender Identity Not on file Sexual Orientation Not on file Obstetrics History Last Filed Vital Signs Vital Sign Reading Time Taken Comments Blood Pressure 94/62 11/26/2022 4:00 PM DECORATOR MANNEQUIN Pulse 96 11/26/2022 4:00 PM DECORATOR MANNEQUIN Temperature 37.2 ??C (99 ??F) 11/26/2022 4:00 PM DECORATOR MANNEQUIN Respiratory Rate 20 11/26/2022 4:00 PM DECORATOR MANNEQUIN Oxygen Saturation 97% 11/26/2022 4:00 PM DECORATOR MANNEQUIN Inhaled Oxygen Concentration - - Weight 90.7 kg (200 lb) 11/26/2022 4:00 PM DECORATOR MANNEQUIN Height 175.3 cm (5' 9 ) 11/26/2022 4:00 PM DECORATOR MANNEQUIN Body Mass Index 29.53 11/26/2022 4:00 PM DECORATOR MANNEQUIN Plan of Treatment Health Maintenance Due Date Last Done Comments Cervical Cancer Screening 1988 Depression Screening 1988 Hepatitis C Screening 1988 Varicella Vaccines (1 of 2 - 13+ 2-dose series) 2001 Hepatitis B Screening 2006 Regular Well Visit/Exam 18-64 2006 DTaP/Tdap/Td Vaccine (2 - Td or Tdap) 01/20/2018 01/21/2008, 12/02/2002 Covid-19 Vaccine (2 - 2023-2 5 season) 2024 05/15/2022 Influenza Vaccine (#1) 2024 , 07/22/2018 HPV Vaccines Aged Out No longer eligi ble based on patient's age to complete this topic Pneumococcal vaccine <65 Aged Out No longer eligible based on patient's age to complete this topic Insurance C CHOICE PLUS CHOICE PLUS Care Teams Laborer [employer] Relationship Specialty Start Date End Date Roosevelt Layne MD [address] [address] PCP - General 09/22/16
== END 2024-10-02 14:49 | disposition home or self-care (01) ==
PROVIDERS: Emergency Provider Nurse Practitioner Family; PCP Family Medicine
DX: J40 Bronchitis, not specified as acute or chronic (principal); E03.9 Hypothyroidism, unspecified
CPT/HCPCS: 99213; G0463